=== PATIENT | female | born 1960 | race Caucasian/White ===

== ENCOUNTER → 2016-10-15 | Outpatient (CLI) | payer BC ==
--- NOTE | 2016-10-16 10:16 | ECHOF ---
Referral Reason:Z01.818 Breast ca MEASUREMENTS -------- HEIGHT: 162.6 cm WEIGHT: 113.4 kg BP: RVIDd: 2.6 cm (< 3.3) IVSd: 1.1 cm (0.6 - 1.1) LVIDd: 4.9 cm (3.9 - 5.3) LVPWd: 1.1 cm (0.6 - 1.1) IVSs: 1.2 cm LVIDs: 2.8 cm LVPWs: 1.8 cm LA Diam: 4.9 cm (2.7 - 3.8) LAESV Index (A-L): 37.64 ml/m Ao Diam: 2.7 cm (2.0 - 3.7) AV Cusp: 1.7 cm (1.5 - 2.6) LA Diam: 4.4 cm (2.7 - 3.8) MV EXCURSION: 15.119 mm (> 18.000) MV EF SLOPE: 84 mm/s (70 - 150) EPSS: 0.3 cm MV E Ras: 0.86 m/s MV DecT: 177 ms MV A Ras: 0.83 m/s MV E/A Ratio: 1.04 RAP: 5.00 mmHg RVSP: 50.77 mmHg FINDINGS -------- Sinus rhythm. This was a technically adequate study. LV size, wall thickness and systolic function are normal, with an EF greater than 55%. The right ventricle is normal in size. LA is moderately dilated 34-39 ml/m2 The right atrial size is normal. There is mild aortic valve sclerosis. There is no evidence of aortic regurgitation. Mild mitral annular calcification present. Mild mitral regurgitation is present. Mild tricuspid regurgitation present. There is moderate pulmonary hypertension. The right ventricular systolic pressure, as measured by Doppler, is 50.77mmHg. There is no pulmonic regurgitation present. The aortic root size is normal. There is no pericardial effusion. CONCLUSIONS -------- 1. LV size, wall thickness and systolic function are normal, with an EF greater than 55%. 2. LA is moderately dilated 34-39 ml/m2 3. There is mild aortic valve sclerosis. 4. Mild mitral annular calcification present. 5. Mild mitral regurgitation is present. 6. Mild tricuspid regurgitation present. 7. There is moderate pulmonary hypertension. 8. The right ventricular systolic pressure, as measured by Doppler, is 50.77mmHg. VENEER STACKER: Padmaja Baca RDCS
== END | disposition home or self-care (01) ==
LOC: RADECHMAIN 13:46
PROVIDERS: ATTEND Internal Medicine Hematology & Oncology
DX: Z01.810 Encounter for preprocedural cardiovascular examination (principal); I08.1 Rheumatic disorders of both mitral and tricuspid valves; I27.2 Other secondary pulmonary hypertension; I70.0 Atherosclerosis of aorta
CPT/HCPCS: 93306

== ENCOUNTER → 2017-04-02 | Outpatient (CLI) | payer BC ==
--- NOTE | 2017-04-02 11:14 | XR ---
EXAMINATION TYPE: XR knee complete RT DATE OF EXAM: 04/02/2017 COMPARISON: NONE HISTORY: 56-year-old female right knee pain for one week TECHNIQUE: 3 views FINDINGS: There is mild tricompartmental degenerative spurring, greatest in the patellofemoral compartment. Ext ensor mechanism is intact. No significant knee joint effusion. Subtle subchondral lucency along the m id lateral femoral condyle on the oblique view. Possible intercondylar spur on the AP view. IMPRESSION: 1. Tricompartmental osteoarthrosis. 2. No acute osseous abnormality seen. 3. Tiny subchondral area of lucency along the mid lateral femoral condyle probably corresponds to a d egenerative condylar spur when correlated with the AP view.
== END | disposition home or self-care (01) ==
LOC: RADXRMAIN 10:39
PROVIDERS: ATTEND Physician Assistant
DX: M17.11 Unilateral primary osteoarthritis, right knee (principal)

== ENCOUNTER 2017-05-10 20:22 | Inpatient (IN) | payer BC ==
--- NOTE | 2017-05-10 21:30 | XR ---
EXAMINATION TYPE: XR knee complete RT DATE OF EXAM: 05/10/2017 COMPARISON: 04/02/2017 HISTORY: Knee pain TECHNIQUE: 3 views FINDINGS: There is spurring of the patella. There is a small knee joint effusion. There is spurring o f the femoral and tibial condyles. There is slight irregular cortex on the lateral aspect of the dist al femoral metaphysis. This is suspicious for a subacute fracture. IMPRESSION: I think there is a healing hairline vertical fracture through the intercondylar femur and involving the lateral femoral condyle. This is new compared to last exam. A CT scan or MR scan would be helpful if clinically indicated.
[2017-05-10] MEDS ORDERED: RX INFO: IV CONTRAST WAS GIVEN 1 EACH MISC MISCELLANE PRN (21:44)
--- NOTE | 2017-05-10 22:16 | ED ---
General Adult HPI - General Source: patient, family, EMS, RN notes reviewed Mode of arrival: EMS Limitations: no limitations <Tr Morris - Last Filed: 05/11/17 00:59> <Fco Becerra - Last Filed: 05/11/17 06:28> - General Chief complaint: Extremity Injury, Lower Stated complaint: Knee Pain Time Seen by Provider: 05/10/17 21:38 - History of Present Illness Initial comments: Patient 57-year-old female who presents emergency room today with a chief complaint of increased pain to the right leg. She does admit that over the last few weeks she's been expressing pain to the right leg. Does admit that she 's had some increased swelling. States been doing physical therapy. States after physical therapy today so increased pain and difficult time ambulating on it. She denies any other injury or trauma. Denies any other complaints or symptoms. Patient denies any recent fever, chills, shortness of breath, chest pain, back pain, abdominal pain, nausea or vomiting, numbness or tingling, dysuria or hematuria, constipation or diarrhea, headaches or visual changes, or any other complaints. (Tr Morris) - Related Data Home Medications Medication Instructions Recorded Confirmed Carvedilol Phosphate [Coreg Cr] 10 mg PO QAM 01/16/16 05/10/17 Levothyroxine Sodium [Synthroid] 75 mcg PO QAM 01/16/16 05/10/17 Levothyroxine Sodium [Synthroid] 300 mcg PO QAM 01/16/16 05/10/17 Ergocalciferol (Vitamin D2) 50,000 unit PO CHAVEZ 08/27/16 05/10/17 [Vitamin D2] Thiamine [Vitamin B-1] 100 mg PO DAILY 08/27/16 05/10/17 Ibuprofen [Motrin] 800 mg PO TID PRN 05/10/17 05/10/17 Naproxen Sodium [Aleve] 220 mg PO BID PRN 05/10/17 05/10/17 Allergies Allergy/AdvReac Type Severity Reaction Status Date / Time adhesive Allergy Rash/Hives Verified 05/10/17 23:05 prochlorperazine Allergy Swelling Verified 05/10/17 23:05 [From Compazine] prochlorperazine edisylate Allergy Swelling Verified 05/10/17 23:05 [From Compazine] prochlorperazine maleate Allergy Swelling Verified 05/10/17 23:05 [From Compazine] ranitidine HCl [From Zantac] Allergy Swelling Verified 05/10/17 23:05 Review of Systems ROS Other: All systems not noted in ROS Statement are negative. <Tr Morris - Last Filed: 05/11/17 00:59> ROS Other: All systems not noted in ROS Statement are negative. <Fco Becerra - Last Filed: 05/11/17 06:28> ROS Statement: Those systems with pertinent positive or pertinent negative responses have been documented in the HPI. Past Medical History Past Medical History: COPD, Sleep Apnea/CPAP/BIPAP, Thyroid Disorder Additional Past Medical History / Comment(s): NO CPAP. Hx: POST MENOPAUSAL BLEEDING. Weight loss of 100lb. History of Any Multi-Drug Resistant Organisms: None Reported Past Surgical History: Bariatric Surgery, Breast Surgery, Cholecystectomy, Hernia Repair, Hysterectomy, Tubal Ligation Additional Past Surgical History / Comment(s): Lap band, now removed. Stomach bypass. Left breast bx (NEG). Past Anesthesia/Blood Transfusion Reactions: No Reported Reaction Additional Past Anesthesia/Blood Transfusion Reaction / Comment(s): STATES MOTHER HAD DIFFICULTY WAKING UP. Past Psychological History: No Psychological Hx Reported Smoking Status: Never smoker - Past Family History Father Family Medical History: Cancer <Tr Morris - Last Filed: 05/11/17 00:59> General Exam Limitations: no limitations <Tr Morris - Last Filed: 05/11/17 00:59> <Fco Becerra - Last Filed: 05/11/17 06:28> - General Exam Comments Initial Comments: General: The patient is awake and alert, in no distress, and does not appear acutely ill. Neck: The neck is supple, there is no tenderness or JVD. Cardiovascular: There is a regular rate and rhythm. No murmur, rub or gallop is appreciated. Respiratory: Lungs are clear to auscultation, respirations are non-labored, breath sounds are equal. No wheezes, stridor, rales, or rhonchi. Musculoskeletal: Patient does have moderate swelling to the right lower extremity. No redness. No deformity. Sensation intact pulses equal bilaterally 2+. Patient does have positive Homans sign. Neurological: A&O x 3. CN II-XII intact, There are no obvious motor or sensory deficits. Coordination appears grossly intact. Speech is normal. Skin: Skin is warm and dry and no rashes or lesions are noted. Psychiatric: Normal mood and affect. (Tr Morris) Medical Decision Making - Lab Data Result diagrams: 05/11/17 00:07 05/11/17 00:07 <Tr Morris - Last Filed: 05/11/17 00:59> - Lab Data Result diagrams: 05/11/17 00:07 05/11/17 00:07 <Fco Becerra - Last Filed: 05/11/17 06:28> - Medical Decision Making Patient reexamined at this time. Resting comfortably. Patient's labs been reviewed here evidence for urinary tract infection. She does admit to some increased frequency will be started on antibiotics. Patient does have a pathological fracture to the right knee. Patient will be admitted with consult to orthopedics along with her oncologist. (Tr Morris) 57-year-old female presents with worsening right knee pain. Patient does have history of breast cancer, recently completed treatment proximally 3 months ago. X-ray does show findings intracondylar fracture,CT is obtained. CT shows suspicion for pathological fracture and lytic bone lesion. Patient is unable to bear weight on this leg secondary to pain. She will be admitted to internal medicine with oncology and orthopedics on consult. (Fco Becerra) - Lab Data Lab Results 05/11/17 05/11/17 05/11/17 Range/Units 00:04 00:07 00:07 WBC 10.3 (3.8-10.6) k/uL RBC 4.32 (3.80-5.40) m/uL Hgb 13.2 (11.4-16.0) gm/dL Hct 41.6 (34.0-46.0) % MCV 96.2 (80.0-100.0) fL MCH 30.5 (25.0-35.0) pg MCHC 31.7 (31.0-37.0) g/dL RDW 15.0 (11.5-15.5) % Plt Count 243 (150-450) k/uL Neutrophils % 84 % Lymphocytes % 10 % Monocytes % 4 % Eosinophils % 1 % Basophils % 0 % Neutrophils # 8.7 H (1.3-7.7) k/uL Lymphocytes # 1.0 (1.0-4.8) k/uL Monocytes # 0.4 (0-1.0) k/uL Eosinophils # 0.1 (0-0.7) k/uL Basophils # 0.0 (0-0.2) k/uL Poikilocytosis Slight PT (9.0-12.0) sec INR (<1.2) APTT (22.0-30.0) sec Sodium 145 (137-145) mmol/L Potassium 4.0 (3.5-5.1) mmol/L Chloride 107 (98-107) mmol/L Carbon Dioxide 26 (22-30) mmol/L Anion Gap 12 mmol/L BUN 18 H (7-17) mg/dL Creatinine 0.60 (0.52-1.04) mg/dL Est GFR (MDRD) Af Amer >60 (>60 ml/min/1.73 sqM) Est GFR (MDRD) Non-Af >60 (>60 ml/min/1.73 sqM) Glucose 118 H (74-99) mg/dL Calcium 9.3 (8.4-10.2) mg/dL Total Bilirubin 0.8 (0.2-1.3) mg/dL AST 28 (14-36) U/L ALT 34 (9-52) U/L Alkaline Phosphatase 313 H (38-126) U/L Total Protein 6.6 (6.3-8.2) g/dL Albumin 3.9 (3.5-5.0) g/dL Urine Color Yellow Urine Appearance Cloudy H (Clear) Urine pH 6.0 (5.0-8.0) Ur Specific [place] 1.025 (1.001-1.035) Urine Protein Trace H (Negative) Urine Glucose (UA) Negative (Negative) Urine Ketones 1+ H (Negative) Urine Blood Negative (Negative) Urine Nitrite Positive H (Negative) Urine Bilirubin Negative (Negative) Urine Urobilinogen <2.0 (<2.0) mg/dL Ur Leukocyte Esterase Small H (Negative) Urine RBC 1 (0-5) /hpf Urine WBC 7 H (0-5) /hpf Ur Squamous Epith Cells 2 (0-4) /hpf Urine Bacteria Many H (None) /hpf Hyaline Casts 1 (0-2) /lpf Urine Mucus Occasional H (None) /hpf 05/11/17 Range/Units 00:07 WBC (3.8-10.6) k/uL RBC (3.80-5.40) m/uL Hgb (11.4-16.0) gm/dL Hct (34.0-46.0) % MCV (80.0-100.0) fL MCH (25.0-35.0) pg MCHC (31.0-37.0) g/dL RDW (11.5-15.5) % Plt Count (150-450) k/uL Neutrophils % % Lymphocytes % % Monocytes % % Eosinophils % % Basophils % % Neutrophils # (1.3-7.7) k/uL Lymphocytes # (1.0-4.8) k/uL Monocytes # (0-1.0) k/uL Eosinophils # (0-0.7) k/uL Basophils # (0-0.2) k/uL Poikilocytosis PT 10.8 (9.0-12.0) sec INR 1.1 (<1.2) APTT 21.8 L (22.0-30.0) sec Sodium (137-145) mmol/L Potassium (3.5-5.1) mmol/L Chloride (98-107) mmol/L Carbon Dioxide (22-30) mmol/L Anion Gap mmol/L BUN (7-17) mg/dL Creatinine (0.52-1.04) mg/dL Est GFR (MDRD) Af Amer (>60 ml/min/1.73 sqM) Est GFR (MDRD) Non-Af (>60 ml/min/1.73 sqM) Glucose (74-99) mg/dL Calcium (8.4-10.2) mg/dL Total Bilirubin (0.2-1.3) mg/dL AST (14-36) U/L ALT (9-52) U/L Alkaline Phosphatase (38-126) U/L Total Protein (6.3-8.2) g/dL Albumin (3.5-5.0) g/dL Urine Color Urine Appearance (Clear) Urine pH (5.0-8.0) Ur Specific [place] (1.001-1.035) Urine Protein (Negative) Urine Glucose (UA) (Negative) Urine Ketones (Negative) Urine Blood (Negative) Urine Nitrite (Negative) Urine Bilirubin (Negative) Urine Urobilinogen (<2.0) mg/dL Ur Leukocyte Esterase (Negative) Urine RBC (0-5) /hpf Urine WBC (0-5) /hpf Ur Squamous Epith Cells (0-4) /hpf Urine Bacteria (None) /hpf Hyaline Casts (0-2) /lpf Urine Mucus (None) /hpf Disposition Time of Disposition: 01:00 <Tr Morris - Last Filed: 05/11/17 00:59> <Fco Becerra - Last Filed: 05/11/17 06:28> Clinical Impression: Knee fracture, right, UTI (urinary tract infection) Disposition: ADMITTED IP TO THIS HOSP Condition: Good
--- NOTE | 2017-05-10 22:47 | CT ---
EXAM: CT Right Lower Extremity Without Intravenous Contrast, Knee CLINICAL HISTORY: Reason: Pain TECHNIQUE: Axial computed tomography images of the right knee without intravenous contrast. CTDI is 20 mGy and DLP is 544.20 mGy-cm. This CT exam was performed using one or more of the following dose reduction techniques: automated exposure control, adjustment of the mA and/or kV according to patient size, and/or use of iterative reconstruction technique. COMPARISON: Right knee radiographs 05/10/2017 FINDINGS: Bones/joints: Lytic lesion involving the metaphysis and physis of the lateral femoral condyle is mildly expansile with associated cortical destruction and pathologic fracture laterally. This lesion has an imprecise zone of transition and ill-defined borders, measuring approximately 3.7 cm. A definite solid component is not visualized, however evaluation is limited by lack of intravenous contrast. Mild tricompartmental degenerative changes of the knee. Soft tissues: Small popliteal cyst. IMPRESSION: Lytic lesion in the lateral femoral condyle with associated cortical destruction/pathologic fracture is concerning for a metastasis. A primary bone neoplasm or pseudotumor is felt to be less likely. Correlate with known malignancy. A nuclear medicine PET scan may be considered for further evaluation, as clinically indicated.
--- NOTE | 2017-05-10 23:12 | US ---
EXAM: US Duplex Right Lower Extremity Veins CLINICAL HISTORY: Right leg pain TECHNIQUE: The lower extremity deep venous system is examined utilizing real time linear array sonography with graded compression, doppler sonography and color-flow sonography. COMPARISON: No relevant prior studies available. FINDINGS: Deep veins: Unremarkable. Normal compression and response to augmentation. Superficial veins: Unremarkable as visualized. Soft tissues: No acute findings. IMPRESSION: No evidence of deep venous thrombosis in the right lower extremity.
[2017-05-10] MEDS ORDERED: HYDROmorphone 1 MG/ML 1 ML SYRINGE IVP STA (23:39)
[2017-05-10] MEDS ORDERED: ONDANSETRON 4 MG/2 ML VIAL IVP STA (23:39)
[2017-05-11 00:20] LABS: Basophils % (A) 0 %; CH 31.7; CHCM 33.1; Eosinophils # (A) 0.1 k/uL (0-0.7); Eosinophils % (A) 1 %; HCT 41.6 % (34.0-46.0); HGB 13.2 gm/dL (11.4-16.0); Luc # (Auto) 0.09; Luc % (Auto) 1; Lymphocytes % (A) 10 %; MCH 30.5 pg (25.0-35.0); MCHC 31.7 g/dL (31.0-37.0); MCV 96.2 fL (80.0-100.0); Monocytes # (A) 0.4 k/uL (0-1.0); Monocytes % (A) 4 %; Neutrophils # (A) 8.7 k/uL (1.3-7.7); Neutrophils % (A) 84 %; Poikilocytosis Slight; RBC 4.32 m/uL (3.80-5.40); WBC 10.3 k/uL (3.8-10.6); WBC (Perox) 10.24
[2017-05-11 00:31] LABS: ALT 34 U/L (9-52); AST 28 U/L (14-36); Alkaline Phosphatase 313 U/L (38-126); Anion Gap 12 mmol/L; Blood Urea Nitrogen 18 mg/dL (7-17); Calcium 9.3 mg/dL (8.4-10.2); Carbon Dioxide 26 mmol/L (22-30); Chloride 107 mmol/L (98-107); Glucose 118 mg/dL (74-99); Non-African American GFR(MDRD) >60 (>60 ml/min/1.73 sqM); Sodium 145 mmol/L (137-145); Total Bilirubin 0.8 mg/dL (0.2-1.3); Total Protein 6.6 g/dL (6.3-8.2)
[2017-05-11 00:32] LABS: Appearance,Urine Cloudy (Clear); Bacteria,Urine Many /hpf; Bilirubin,Urine Negative (Negative); Glucose,Urine (UA) Negative (Negative); Ketones,Urine 1+ (Negative); Leukocyte Esterase,Urine Small (Negative); Mucus,Urine Occasional /hpf; Nitrite,Urine Positive (Negative); Particle Count 11065; Protein,Urine Trace (Negative); RBC,Urine 1 /hpf (0-5); Specific Gravity,Urine 1.025 (1.001-1.035); Squamous Epithelial Cell,Urine 2 /hpf (0-4); UA Billing (MACRO vs. MICRO) MICRO; Urobilinogen,Urine <2.0 mg/dL (<2.0); WBC,Urine 7 /hpf (0-5)
[2017-05-11 00:37] LABS: INR 1.1 (<1.2); Prothrombin Time 10.8 sec (9.0-12.0)
[2017-05-11 00:48] LABS: Partial Thromboplastin Time 21.8 sec (22.0-30.0)
[2017-05-11] MEDS ORDERED: NALOXONE 0.4 MG/ML 1 ML VIAL IV PRN (01:01)
[2017-05-11] MEDS ORDERED: LORazepam 2 MG/ML SYRINGE IV PRN (01:01)
[2017-05-11 02:33] VITALS: BMI 42.9
[2017-05-11] MEDS: HYDROmorphone 1 MG/ML 1 ML SYRINGE IV PRN ×4 (06:09→19:37)
[2017-05-11] MEDS: SODIUM CHLORIDE 0.9% 1,000 ML IV SCH ×2 (06:42→17:15)
[2017-05-11] MEDS: DIAZEPAM 5 MG TAB PO PRN ×2 (09:31→14:58)
[2017-05-11] MEDS ORDERED: HYDROcodone/APAP 7.5-325MG 1 EACH TAB PO PRN (09:52)
--- NOTE | 2017-05-11 10:26 | P.CNOR ---
History of Present Illness - [facility] Consult date: 05/11/17 Requesting physician: Eros Sosa Consult reason: fracture History of present illness: Patient is a pleasant 57-year-old female seen at bedside this morning. We are consulted for right knee pain. She states she's had right knee pain for the past 2 months or so. Should been participating in physical therapy which has not helped a great deal. Pain worsened yesterday where she had difficulty putting any weight or ambulating. She's had intermittent numbness and tingling in the leg. She is currently denying calf pain, fever, chills, chest pain or shortness of breath. She has a history of breast cancer and finished treatment approximately 3 months ago. She had a mastectomy in May 2016 she states. She has no other complaints today. Review of Systems All systems: negative Constitutional: Denies chills, Denies fever Eyes: denies blurred vision, denies pain Ears, nose, mouth and throat: Denies headache, Denies sore throat Cardiovascular: Denies chest pain, Denies shortness of breath Respiratory: Denies cough Gastrointestinal: Denies abdominal pain, Denies diarrhea, Denies nausea, Denies vomiting Genitourinary: Denies dysuria, Denies hematuria Musculoskeletal: Denies myalgias Integumentary: Denies pruritus, Denies rash Neurological: Denies numbness, Denies weakness Psychiatric: Denies anxiety, Denies depression Endocrine: Denies fatigue, Denies weight change Past Medical History Past Medical History: COPD, Sleep Apnea/CPAP/BIPAP, Thyroid Disorder Additional Past Medical History / Comment(s): NO CPAP. Hx: POST MENOPAUSAL BLEEDING. Weight loss of 100lb. History of Any Multi-Drug Resistant Organisms: None Reported Past Surgical History: Bariatric Surgery, Breast Surgery, Cholecystectomy, Hernia Repair, Hysterectomy, Tubal Ligation Additional Past Surgical History / Comment(s): Lap band, now removed. Stomach bypass. Left breast bx (NEG). Past Anesthesia/Blood Transfusion Reactions: No Reported Reaction Additional Past Anesthesia/Blood Transfusion Reaction / Comm: STATES MOTHER HAD DIFFICULTY WAKING UP. Past Psychological History: No Psychological Hx Reported Smoking Status: Never smoker Past Alcohol Use History: None Reported Past Drug Use History: None Reported - Past Family History Father Family Medical History: Cancer Additional Family Medical History / Comment(s): colon and esophagus cancer Medications and Allergies Home Medications Medication Instructions Recorded Confirmed Type Carvedilol Phosphate [Coreg Cr] 10 mg PO QAM 01/16/16 05/10/17 History Levothyroxine Sodium [Synthroid] 75 mcg PO QAM 01/16/16 05/10/17 History Levothyroxine Sodium [Synthroid] 300 mcg PO QAM 01/16/16 05/10/17 History Ergocalciferol (Vitamin D2) 50,000 unit PO CHAVEZ 08/27/16 05/10/17 History [Vitamin D2] Thiamine [Vitamin B-1] 100 mg PO DAILY 08/27/16 05/10/17 History Ibuprofen [Motrin] 800 mg PO TID PRN 05/10/17 05/10/17 History Naproxen Sodium [Aleve] 220 mg PO BID PRN 05/10/17 05/10/17 History Allergies Allergy/AdvReac Type Severity Reaction Status Date / Time adhesive Allergy Rash/Hives Verified 05/10/17 23:05 prochlorperazine Allergy Swelling Verified 05/10/17 23:05 [From Compazine] prochlorperazine edisylate Allergy Swelling Verified 05/10/17 23:05 [From Compazine] prochlorperazine maleate Allergy Swelling Verified 05/10/17 23:05 [From Compazine] ranitidine HCl [From Zantac] Allergy Swelling Verified 05/10/17 23:05 Physical Examination Inspection of the right lower extremity is benign. There is no active wounds, lacerations, erythema, ecchymoses or edema. There is mild tenderness palpation at the distal femur anteriorly. The knee is not put through range of motion as it causes significant pain as well as findings with her CAT scan show a lytic lesion at the distal femoral condyle as well as an intercondylar tibial plateau fracture. The calf is soft and nontender. 2+ dorsalis pedis pulse and less than 2 second cap refill is present. Motor and sensation is grossly intact throughout the right lower extremity.. Results CT of the right knee shows a Lytic appearing lesion that the lateral femoral condyle and associated fracture. There appears to be a vertical tibial plateau fracture that is nondisplaced at the intercondylar eminence. - Labs Labs: Abnormal Lab Results - Last 24 Hours (Table) 05/11/17 05/11/17 05/11/17 Range/Units 00:04 00:07 00:07 Neutrophils # 8.7 H (1.3-7.7) k/uL APTT (22.0-30.0) sec BUN 18 H (7-17) mg/dL Glucose 118 H (74-99) mg/dL Alkaline Phosphatase 313 H (38-126) U/L Urine Appearance Cloudy H (Clear) Urine Protein Trace H (Negative) Urine Ketones 1+ H (Negative) Urine Nitrite Positive H (Negative) Ur Leukocyte Esterase Small H (Negative) Urine WBC 7 H (0-5) /hpf Urine Bacteria Many H (None) /hpf Urine Mucus Occasional H (None) /hpf 05/11/17 Range/Units 00:07 Neutrophils # (1.3-7.7) k/uL APTT 21.8 L (22.0-30.0) sec BUN (7-17) mg/dL Glucose (74-99) mg/dL Alkaline Phosphatase (38-126) U/L Urine Appearance (Clear) Urine Protein (Negative) Urine Ketones (Negative) Urine Nitrite (Negative) Ur Leukocyte Esterase (Negative) Urine WBC (0-5) /hpf Urine Bacteria (None) /hpf Urine Mucus (None) /hpf H & H 05/11/17 Range/Units 00:07 Hgb 13.2 (11.4-16.0) gm/dL Hct 41.6 (34.0-46.0) % Coagulation 05/11/17 Range/Units 00:07 INR 1.1 (<1.2) Result Diagrams: 05/11/17 00:07 05/11/17 00:07 Assessment and Plan (1) Knee fracture, right Narrative/Plan: This patient has been reviewed with Dr. Sosa. We've recommended obtaining a knee immobilizer for the right knee. She is to be strict nonweightbearing of the right lower extremity. Continue with pain management. A repeat PET scan may be appropriate for further evaluation of metastasis. We'll continue to follow and make further recommendations as appropriate. Status: Acute Time with Patient: Less than 30
[2017-05-11] MEDS ORDERED: RX INFO: IV CONTRAST WAS GIVEN 1 EACH MISC MISCELLANE PRN (10:38)
[2017-05-11] MEDS: IOHEXOL 350 MG/ML 25 ML BOTTLE (ORAL USE) PO PRN ×2 (11:37→12:45)
[2017-05-11] MEDS ORDERED: HYDROcodone/APAP 10-325MG 1 EACH TAB PO ONE (14:38)
[2017-05-11] MEDS ORDERED: HYDROmorphone 1 MG/ML 1 ML SYRINGE IVP STA (14:38)
--- NOTE | 2017-05-11 16:47 | CT ---
EXAMINATION TYPE: CT ChestAbdPelvis w con DATE OF EXAM: 05/11/2017 COMPARISON: Bone scan 05/11/2017, nuclear medicine PET/CT 08/22/2016, CT 11/11/2012 HISTORY: Breast cancer, new bone lesions, restaging CT DLP: 3162.5 mGycm Automated exposure control for dose reduction was used. CONTRAST: CT scan of the chest, abdomen and pelvis is performed and with IV Contrast, patient injected with 100 mL of Omnipaque 300. FINDINGS: LUNGS: The lungs are grossly clear, there is no concerning parenchymal mass or nodule identified. T here is no pleural effusion or pneumothorax seen. The tracheobronchial tree is patent. Dependent ate lectatic changes are present within the lungs. MEDIASTINUM: There are no greater than 1 cm hilar or mediastinal lymph nodes. No pericardial effusi on is seen. AORTA: No significant abnormality is seen. OTHER: No additional significant abnormality is seen. LIVER/GB: The liver is enlarged and shows low attenuation likely due to fatty infiltration. Patient i s post cholecystectomy. PANCREAS: No significant abnormality is seen. SPLEEN: The spleen is enlarged ADRENALS: No significant abnormality is seen. KIDNEYS: No significant abnormality is seen. Retroaortic left renal vein is present. REPRODUCTIVE ORGANS: No gross abnormality seen. BOWEL: The cecum shows some wall thickening which is indeterminate.. Postop change noted to the juana roesophageal junction, lap band has been removed in the interval compared to prior CT. Some retained oral contrast present within the esophagus. FREE AIR: No Free Air visible. ASCITES: None seen. RETROPERITONEAL ADENOPATHY: No retroperitoneal adenopathy is seen. LYMPH NODES: No greater than 1 cm abdominal or pelvic lymph nodes are appreciated. URINARY BLADDER: No significant abnormality is seen. PELVIC ADENOPATHY: None visualized. OSSEOUS STRUCTURES: No significant abnormality is seen. Surgical clips present in the subcutaneous fat anteriorly. Small umbilical hernia contains fat. There is a port in the right pectoral region, catheter courses into the superior vena cava towards the cav oatrial junction level. Patient is post right mastectomy. IMPRESSION: Hepatosplenomegaly. Postop changes. Findings in the cecum are nonspecific and are likely normal, difficult to exclude a mucosal lesion. Additional nonspecific findings described above.
--- NOTE | 2017-05-11 17:00 | NM ---
EXAMINATION TYPE: NM bone scan whole body DATE OF EXAM: 05/11/2017 COMPARISON: NONE HISTORY: Breast cancer, pulmonary Delayed whole-body scanning was performed following the injection of 27.7 mCi Tc 99m MDP. Images wer e acquired 3.5 hours post injection. FINDINGS: Whole body imaging is performed. There is focal uptake within the distal right femur. This is compared 05/10/2017. The lesion in the la teral left knee appears to correspond to the findings: Scant. Additional suspicious metastatic lesions are not identified. There is some mild increased uptake felt to more likely represent degenerative changes. IMPRESSION: 1. Metastatic lesion to the distal right knee. 2. Additional areas of uptake within the ankles are more likely related to degenerative changes.
--- NOTE | 2017-05-11 17:20 | P.CONS ---
History of Present Illness - Reason for Consult Consult date: 05/11/17 pathological fracture Requesting physician: Tr Morris - Chief Complaint right knee pain - History of Present Illness Mrs. Watkins is a very pleasant female pt of Dr. Fiore who noticed a lump in the central portion of her right breast in late May 2016, she had not had a mammogram since 11/02. She had mammogram in Jun that revealed 3.2 x 2.4 cm oval mass in the retroareolar region, US confirmed 2.8 x 1.9 x 2.4 cm solid lesion at 10 o'clock, US guided core biopsy on 07/03/16 revealing a fibroepithelial lesion with no obvious malignant characteristics but because the mass was palpable, wire localization excision was done on 07/28/16. 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 Pt had simple mastectomy, with sentinal lymph node biopsy and then axillary dissection on 09/02/16, no residual tumor was found in the breast, 1/2 sentinal nodes was positive for micromets, 6 axillary nodes were negative. Pt was seen at [facility] for treatment opinion on 10/27/16. Adjuvant taxotere and cytoxan was recommended. She completed 4 cycles chemo in 02/03. She was thne placed on observation and had her 1st 3mo f/u earlier this month, mammogram due in the next few weeks. Pt has been having pain in the right knee for a little over a month, associated with some cramps that can be severe enough that she will "scream" in pain, she denies numbness, tingling or falls. Pt was participating in PT when her knee starting hurting worse, the pain was persistent and not alleviated by analgesics or positioning so she came to the hospital. She had Xray of the knee and CT which is showing a 3.7 cm lytic lesion on the right lateral femoral condyle. Review of Systems All systems: negative Constitutional: Reports as per HPI Eyes: bilateral as per HPI Past Medical History Past Medical History: Cancer, Chest Pain / Angina, COPD, Sleep Apnea/CPAP/BIPAP , Thyroid Disorder Additional Past Medical History / Comment(s): NO CPAP. Hx: POST MENOPAUSAL BLEEDING. Weight loss of 100lb. History of Any Multi-Drug Resistant Organisms: None Reported Past Surgical History: Bariatric Surgery, Breast Surgery, Cholecystectomy, Hernia Repair, Hysterectomy, Tubal Ligation Additional Past Surgical History / Comment(s): Lap band, now removed. Stomach bypass. Left breast bx (NEG). Past Anesthesia/Blood Transfusion Reactions: No Reported Reaction Additional Past Anesthesia/Blood Transfusion Reaction / Comm: STATES MOTHER HAD DIFFICULTY WAKING UP. Past Psychological History: No Psychological Hx Reported Smoking Status: Never smoker Past Alcohol Use History: None Reported Past Drug Use History: None Reported - Past Family History Father Family Medical History: Cancer Additional Family Medical History / Comment(s): colon and esophagus cancer Medications and Allergies Home Medications Medication Instructions Recorded Confirmed Type Carvedilol Phosphate [Coreg Cr] 10 mg PO QAM 01/16/16 05/10/17 History Levothyroxine Sodium [Synthroid] 75 mcg PO QAM 01/16/16 05/10/17 History Levothyroxine Sodium [Synthroid] 300 mcg PO QAM 01/16/16 05/10/17 History Ergocalciferol (Vitamin D2) 50,000 unit PO CHAVEZ 08/27/16 05/10/17 History [Vitamin D2] Thiamine [Vitamin B-1] 100 mg PO DAILY 08/27/16 05/10/17 History Ibuprofen [Motrin] 800 mg PO TID PRN 05/10/17 05/10/17 History Naproxen Sodium [Aleve] 220 mg PO BID PRN 05/10/17 05/10/17 History Allergies Allergy/AdvReac Type Severity Reaction Status Date / Time adhesive Allergy Rash/Hives Verified 05/10/17 23:05 prochlorperazine Allergy Swelling Verified 05/10/17 23:05 [From Compazine] prochlorperazine edisylate Allergy Swelling Verified 05/10/17 23:05 [From Compazine] prochlorperazine maleate Allergy Swelling Verified 05/10/17 23:05 [From Compazine] ranitidine HCl [From Zantac] Allergy Swelling Verified 05/10/17 23:05 Physical Exam Vitals: Vital Signs Temp Pulse Pulse Pulse Resp BP BP 05/11/17 15:00 98.5 F 74 17 181/81 05/11/17 07:00 100.2 F H 88 18 166/70 05/11/17 04:00 16 05/11/17 02:06 98.2 F 74 16 159/75 05/11/17 02:00 16 05/11/17 01:28 100.5 F H 89 18 185/88 05/11/17 00:46 177/77 05/11/17 00:13 73 18 05/10/17 23:07 72 18 182/69 05/10/17 20:30 98.8 F 75 18 224/90 Pulse Ox 05/11/17 15:00 94 L 05/11/17 07:00 93 L 05/11/17 04:00 05/11/17 02:06 94 L 05/11/17 02:00 05/11/17 01:28 94 L 05/11/17 00:46 05/11/17 00:13 94 L 05/10/17 23:07 97 05/10/17 20:30 96 Intake and Output 05/11/17 05/11/17 05/11/17 06:59 14:59 22:59 Intake Total 375 Output Total 200 Balance 375 -200 Intake: IV 375 Sodium Chloride 0.9% 1, 375 000 ml @ 125 mls/hr IV . Q8H [facility] Rx#:[id number] Output: Urine 200 Other: Weight 113.398 kg - Constitutional General appearance: cooperative, no acute distress, obese - EENT Eyes: anicteric sclerae, PERRLA, normal appearance ENT: normal oropharynx - Neck Neck: no lymphadenopathy - Respiratory Respiratory: bilateral: CTA - Cardiovascular Rhythm: regular Heart sounds: normal: S1, S2 Abnormal Heart Sounds: no systolic murmur, no diastolic murmur, no rub, no S3 Gallop, no S4 Gallop, no click, no other leg Peripheral Edema: right: Trace, left: None - Gastrointestinal General gastrointestinal: no absent bowel sounds, no decreased bowel sounds, no distended, no hepatomegaly, no hyperactive bowel sounds, normal bowel sounds, no organomegaly, no rigid, no scaphoid, soft, no splenomegaly, no tenderness, no umbilical hernia, no ventral hernia - Integumentary Integumentary: normal - Neurologic Neurologic: CNII-XII intact - Musculoskeletal right leg flexion and extension are a little painful, pedal pulses 2+, skin warm , pt can discriminate soft touch equally well bilaterally - Psychiatric Psychiatric: A&O x's 3, appropriate affect, intact judgment & insight Results CBC & Chem 7: 05/11/17 00:07 05/11/17 00:07 Labs: Abnormal Lab Results - Last 24 Hours (Table) 05/11/17 05/11/17 05/11/17 Range/Units 00:04 00:07 00:07 Neutrophils # 8.7 H (1.3-7.7) k/uL APTT (22.0-30.0) sec BUN 18 H (7-17) mg/dL Glucose 118 H (74-99) mg/dL Alkaline Phosphatase 313 H (38-126) U/L Urine Appearance Cloudy H (Clear) Urine Protein Trace H (Negative) Urine Ketones 1+ H (Negative) Urine Nitrite Positive H (Negative) Ur Leukocyte Esterase Small H (Negative) Urine WBC 7 H (0-5) /hpf Urine Bacteria Many H (None) /hpf Urine Mucus Occasional H (None) /hpf 05/11/17 Range/Units 00:07 Neutrophils # (1.3-7.7) k/uL APTT 21.8 L (22.0-30.0) sec BUN (7-17) mg/dL Glucose (74-99) mg/dL Alkaline Phosphatase (38-126) U/L Urine Appearance (Clear) Urine Protein (Negative) Urine Ketones (Negative) Urine Nitrite (Negative) Ur Leukocyte Esterase (Negative) Urine WBC (0-5) /hpf Urine Bacteria (None) /hpf Urine Mucus (None) /hpf Microbiology - Last 24 Hours (Table) 05/11/17 00:04 Urine Culture - Preliminary Urine,Voided Comments: CT report of the knee reviewed Venous US: report reviewed Assessment and Plan (1) Breast cancer, right breast Status: Chronic (2) Lytic bone lesion of right femur Status: Acute Plan: Case was discussed with OA PA, plan is for immobilization and non-weight bearing status. CT CAP, NM bone scan and tumor markers have been ordered. Based on imaging consult will be placed for biopsy based on most amenable area to target. Agree with pain management . Will follow up in AM.
[2017-05-11] MEDS: CARVEDILOL 3.125 MG TAB PO SCH (17:27)
[2017-05-11] MEDS: ONDANSETRON 4 MG/2 ML VIAL IVP PRN (18:40)
[2017-05-12] MEDS: LISINOPRIL 10 MG TAB PO SCH ×2 (01:38→07:08)
[2017-05-12] MEDS: SODIUM CHLORIDE 0.9% 1,000 ML IV SCH ×3 (01:42→17:28)
[2017-05-12] MEDS ORDERED: LEVOTHYROXINE 75 MCG TAB PO SCH (06:30)
[2017-05-12] MEDS ORDERED: LEVOTHYROXINE 100 MCG TAB PO SCH (06:30)
[2017-05-12] MEDS: HYDROmorphone 1 MG/ML 1 ML SYRINGE IV PRN (07:00)
[2017-05-12 07:06] VITALS: RESP 16
[2017-05-12] MEDS: CARVEDILOL 3.125 MG TAB PO SCH ×2 (07:07→17:29)
[2017-05-12] MEDS: ONDANSETRON 4 MG/2 ML VIAL IVP PRN (07:10)
[2017-05-12 07:56] LABS: ALT 30 U/L (9-52); AST 24 U/L (14-36); Alkaline Phosphatase 287 U/L (38-126); Anion Gap 8 mmol/L; Blood Urea Nitrogen 11 mg/dL (7-17); Calcium 8.8 mg/dL (8.4-10.2); Carbon Dioxide 25 mmol/L (22-30); Chloride 106 mmol/L (98-107); Glucose 129 mg/dL (74-99); Non-African American GFR(MDRD) >60 (>60 ml/min/1.73 sqM); Potassium 3.8 mmol/L (3.5-5.1); Sodium 139 mmol/L (137-145); Total Bilirubin 0.7 mg/dL (0.2-1.3); Total Protein 5.7 g/dL (6.3-8.2)
[2017-05-12 08:34] LABS: Basophils % (A) 0 %; CH 30.9; CHCM 33.4; Eosinophils % (A) 0 %; HCT 38.8 % (34.0-46.0); HDW 3.69; Luc # (Auto) 0.09; Luc % (Auto) 1; Lymphocytes # (A) 0.9 k/uL (1.0-4.8); Lymphocytes % (A) 10 %; MCHC 33.4 g/dL (31.0-37.0); MCV 92.8 fL (80.0-100.0); Mean Platelet Volume 8.2; Monocytes # (A) 0.5 k/uL (0-1.0); Monocytes % (A) 6 %; Neutrophils # (A) 6.9 k/uL (1.3-7.7); Neutrophils % (A) 82 %; Poikilocytosis Slight; RBC 4.19 m/uL (3.80-5.40); RDW 14.1 % (11.5-15.5); WBC 8.4 k/uL (3.8-10.6); WBC (Perox) 9.45
[2017-05-12] MEDS ORDERED: THIAMINE 100 MG TAB PO SCH (09:00)
[2017-05-12] MEDS ORDERED: HYDROcodone/APAP 10-325MG 1 EACH TAB PO PRN (09:02)
--- NOTE | 2017-05-12 09:27 | P.PN ---
Subjective Principal diagnosis: Right distal femur lesion, pathological fracture Patient is a pleasant 57-year-old female seen at bedside this morning. We're following for a right distal femur pathological fracture. She's had a computed tomography scan a nuclear medicine scan done. She has in the immobilizer in place. Her pain appears be controlled this morning. She has no new complaints. She denies calf pain, new numbness, tingling or other. She has no fever, chills, chest pain or shortness of breath. Objective - Vital Signs Vital signs: Vital Signs Temp 99.1 F 05/12/17 07:06 Pulse 71 05/12/17 07:06 Resp 16 05/12/17 07:06 BP 153/68 05/12/17 08:04 Pulse Ox 95 05/12/17 07:06 Intake & Output 05/11/17 05/12/17 05/12/17 18:59 06:59 18:59 Intake Total 1935 Output Total 200 1250 Balance -200 685 Intake: Intake, IV Titration 1185 Amount Sodium Chloride 0.9% 1, 1185 000 ml @ 125 mls/hr IV . Q8H [facility] Rx#:[id number] Oral 750 Output: Urine 200 1250 Other: Voiding Method Bedpan # Voids 3 1 - Exam Inspection of the right lower extremity is benign and unchanged. There is no wounds or bleeding. Range of motion of the knee is not tested due to the fracture. Calf is soft and nontender. Sensation to light touch is intact at the right lower extremity. Motor is intact at the ankle, foot and toes. 2+ dorsalis pedis pulse present and less than 2 second cap refill present. - Constitutional General appearance: Present: no acute distress - Psychiatric Psychiatric: Present: A&O x's 3, appropriate affect, intact judgment & insight - Labs CBC & Chem 7: 05/12/17 06:47 05/12/17 06:47 Labs: Abnormal Lab Results - Last 24 Hours (Table) 05/12/17 Range/Units 06:47 Creatinine 0.50 L (0.52-1.04) mg/dL Glucose 129 H (74-99) mg/dL Alkaline Phosphatase 287 H (38-126) U/L Total Protein 5.7 L (6.3-8.2) g/dL Albumin 3.3 L (3.5-5.0) g/dL Microbiology - Last 24 Hours (Table) 05/11/17 00:04 Urine Culture - Preliminary Urine,Voided Assessment and Plan (1) Knee fracture, right Narrative/Plan: She will continue with knee immobilizer for the right knee. She is to be strict nonweightbearing of the right lower extremity. Continue with pain management. It appears based on her computed tomography scan and nuclear medicine scan there is only the lesion at the right distal femur. We'll discuss with Dr. Sosa for further recommendations as appropriate. Status: Acute Time with Patient: Less than 30
[2017-05-12 10:46] LABS: Manual Review Performed
[2017-05-12] MEDS: DIAZEPAM 5 MG TAB PO PRN ×2 (12:10→18:54)
[2017-05-12] MEDS: HYDROcodone/APAP 10-325MG 1 EACH TAB PO PRN ×2 (14:44→19:59)
[2017-05-12 14:48] VITALS: TEMP 97.1
[2017-05-12 17:30] VITALS: BP 163/53; PULSE 80
--- NOTE | 2017-05-12 18:52 | HP ---
DATE OF ADMISSION: 05/11/2017 PRESENTING COMPLAINT: Right knee pain. HISTORY OF PRESENTING COMPLAINT: This is a very pleasant 57-year-old patient of Dr. Ramirez with known history of COPD, hypothyroid; also obstructive sleep apnea, but has not used any machine for a long time. Patient has been having pain in the right knee, was sent to physical therapy, and every time she had physical therapy the pain increased. Yesterday again the patient went for physical therapy and had increasing pain; came home, could barely get out of the car and actually nearly fell down. Patient was brought into the ER. A lytic lesion was found in the distal end of the knee, the differential being that this is metastatic disease. Patient has a history of breast cancer; just had a recent followup with Dr. Fiore and was due for a mammogram. Patient's appetite is otherwise good. There is no weight loss. She is admitted for further metastatic workup. Her is at the bedside. REVIEW OF SYSTEMS: CONSTITUTIONAL: Tired. HEENT: None. RESPIRATORY: As above. CARDIOVASCULAR: None. GASTROINTESTINAL: None. GENITOURINARY: None. MUSCULOSKELETAL: As above. DERMATOLOGIC: None. HEMATOLOGICAL: None. LYMPHATICS: None. PSYCHIATRY: None. NEUROLOGICAL: None. PAST HISTORY: 1. COPD. 2. Obstructive sleep apnea. 3. Hypothyroid. 4. Breast cancer. PAST SURGICAL HISTORY: 1. Right mastectomy. 2. Bariatric surgery. 3. Cholecystectomy. 4. Hernia repair. 5. Hysterectomy. 6. Lap band; now removed. 7. Stomach bypass. SOCIAL HISTORY: Does not smoke. No alcohol. . FAMILY HISTORY: Colon and esophageal cancer. HOME MEDICATIONS: 1. Thiamine 100 mg a day. 2. Aleve 220 mg b.i.d. p.r.n. 3. Synthroid 375 mcg a day. 4. Motrin 800 mg p.o. t.i.d. p.r.n. 5. Vitamin D2 50,000 units on Sundays. 6. Coreg CR 10 mg p.o. daily. ALLERGIES: 1. ADHESIVE. 2. COMPAZINE. 3. ZANTAC. PHYSICAL EXAMINATION: VITAL SIGNS ON PRESENTATION: Temperature 98.8, pulse 75, respiration 18, blood pressure 224/98, pulse ox 96% on room air. Repeat blood pressure 182/69. GENERAL APPEARANCE: Obese. BMI of 42.9. Lying in bed. Not in distress. EYES: Pupils equal. Conjunctivae normal. HEENT : Oral cavity normal. NECK: JVD not raised. Mass not palpable. RESPIRATORY: Effort normal. LUNGS: Decreased breath sounds. CARDIOVASCULAR: First and second sounds normal. No edema. ABDOMEN: Soft, non-tender. Liver and spleen not palpable. LYMPHATICS: No lymph node palpable in neck or axillae. PSYCHIATRY: Alert and oriented x3. Mood and affect normal. EXTREMITIES: Right knee in a brace. INVESTIGATIONS: White count 10.3, hemoglobin 13.2. Potassium 4.0. BUN 18, creatinine 0.60. CT scan of the knee showed a lytic lesion in the lateral femoral condyle with associated cortical destruction and pathological fracture, suspicious for neoplasm. Doppler ultrasound negative for DVT. Bone scan suggestive of metastatic lesion in the distal right knee. Abdomen, chest and pelvic CT scan shows hepatosplenomegaly, non-specific findings in the cecum. ASSESSMENT: 1. This is a patient with lytic lesion in the distal part of the femur in a patient with known breast cancer that was treated with chemotherapy and radiation. This well could be metastatic disease. 2. Hepatosplenomegaly; cause unclear. 3. Chronic obstructive pulmonary disease in a nonsmoker. 4. Morbid obesity; BMI of 42.9, with a prior history of gastric surgery. 5. Hypothyroidism. PLAN: Dr. Fiore from Oncology was consulted. So was Orthopedics. ( ) placed on the right leg. Care was discussed with the patient and . Home medications are resumed. MTDD
--- NOTE | 2017-05-12 19:11 | P.PN ---
Subjective Principal diagnosis: Lytic lesion right distal femur The patient remains nonweightbearing. Pain is reasonably controlled. Swelling around the right knee persists Objective - Vital Signs Vital signs: Vital Signs Temp 97.1 F L 05/12/17 14:48 Pulse 80 05/12/17 17:29 Resp 16 05/12/17 14:48 BP 163/53 05/12/17 17:29 Pulse Ox 94 L 05/12/17 14:48 Intake & Output 05/12/17 05/12/17 05/13/17 06:59 18:59 06:59 Intake Total 1935 1000 Output Total 1250 Balance 685 1000 Intake: IV 1000 Sodium Chloride 0.9% 1, 1000 000 ml @ 125 mls/hr IV . Q8H [facility] Rx#:[id number] Intake, IV Titration 1185 Amount Sodium Chloride 0.9% 1, 1185 000 ml @ 125 mls/hr IV . Q8H [facility] Rx#:[id number] Oral 750 Output: Urine 1250 Other: Voiding Method Bedpan # Voids 3 1 - Constitutional General appearance: Present: no acute distress - EENT Eyes: Present: EOMI, PERRLA ENT: Present: hearing grossly normal, normal oropharynx - Respiratory Respiratory: bilateral: CTA - Cardiovascular Rhythm: regular Heart sounds: normal: S1, S2 - Gastrointestinal General gastrointestinal: Present: normal bowel sounds, soft - Integumentary Integumentary: Present: normal - Neurologic Neurologic: Present: CNII-XII intact - Musculoskeletal Musculoskeletal: Present: right sided weakness - Psychiatric Psychiatric: Present: A&O x's 3, appropriate affect - Labs CBC & Chem 7: 05/12/17 06:47 05/12/17 06:47 Labs: Abnormal Lab Results - Last 24 Hours (Table) 05/12/17 05/12/17 Range/Units 06:47 06:47 Lymphocytes # 0.9 L (1.0-4.8) k/uL Creatinine 0.50 L (0.52-1.04) mg/dL Glucose 129 H (74-99) mg/dL Alkaline Phosphatase 287 H (38-126) U/L Total Protein 5.7 L (6.3-8.2) g/dL Albumin 3.3 L (3.5-5.0) g/dL Microbiology - Last 24 Hours (Table) 05/11/17 00:04 Urine Culture - Preliminary Urine,Voided Gram Neg Bacilli Assessment and Plan (1) Lytic bone lesion of right femur Narrative/Plan: The clinical presentation is most consistent with metastatic involvement. Computed tomography scan of chest abdomen and pelvis, as well as bone scan, revealed no other abnormality. The patient has a known history of breast cancer , but this clinical presentation, of solitary lesion in her distal long bone is somewhat unusual. Therefore a biopsy was felt to be appropriate. Other imaging studies being negative, this was the only available target. Biopsy was discussed with interventional radiology, as well as with the orthopedic service. They both indicated, that needle biopsy would be high risk for causing further breakdown of the bone in that area. Therefore orthopedic oncology involvement was felt to be desirable. In any case, without surgical intervention, the patient would essentially be nonweightbearing on that limb. The case was therefore discussed with orthopedic oncology at [facility]. They agreed with a plan to transfer the patient to that facility, so that she can be evaluated and have the appropriate intervention there, as well as biopsy. Status: Acute (2) Breast cancer, right breast Narrative/Plan: The patient does have a history of triple negative, invasive breast cancer. Therefore metastasis from breast cancer is felt to be the primary concern. Tumor markers, as well as CT chest abdomen and pelvis and bone scan show no other abnormality. Therefore, if biopsy does confirm breast cancer, given that this appears to represent oligo metastatic disease, there would be a possibility of treating the patient more aggressively, with essentially a curative intent again. Status: Chronic
--- NOTE | 2017-05-12 19:40 | P.DS ---
<Jes Monique - Last Filed: 05/12/17 19:26> Providers Date of admission: 05/11/17 01:04 Expected date of discharge: 05/12/17 Attending physician: Wali Quispe Consults: 05/11/17 01:01 Consult Physician Stat Consulting Provider: Ricki Fiore Consult Reason/Comments: Breast cancer, metastasis Do you want consulting provider notified?: Yes Consult Physician Stat Consulting Provider: Eros Sosa Consult Reason/Comments: knee fracture Do you want consulting provider notified?: Yes Primary care physician: [facility] Course: FINAL DIAGNOSES: -Lytic lesion on distal femur in a patient with known breast cancer treated with chemo and radiation likely metastatic disease. -Hepatosplenomegaly, cause unclear. -Chronic obstructive pulmonary disease in a nonsmoker. -Morbid obesity BMI of 42.9, with prior history of gastric surgery. -Hypothyroidism. HOSPTIAL COURSE: 57-year-old female with known history of breast cancer, with chemotherapy treatment presented with right knee pain which was increasing after she had purchased pain at in physical therapy. X-ray of the knee and computed tomography scan revealed a 3.7 cm lytic lesion on the right lateral femoral condyle. Oncology was consulted, orthopedics consulted, pain medications added. Orthopedics placed the leg in an immobilizer with nonweightbearing status. Oncology has ordered CT CAP bone scan and tumor markers. Interventional radiology was consulted for a biopsy however concerns for further breakdown of the bone and it is felt that orthopedic oncology involvement to be necessary. This therefore requires a transfer to [facility] with the patient to be admitted to the internal medicine service under Dr. Blake and Dr. Sauer from orthopedic oncology to be consulted on the case for appropriate intervention and possible biopsy. PHYSICAL EXAM: CARDIOVASCULAR: First and second sounds noted, edema noted to the right knee RESPIRATORY: Effort normal, bilateral breath sounds decreased: MUSKULOSKELETAL: Right knee swelling noted, right leg exquisite tenderness with movement, palpable pedal pulses Patient was seen and examined by nurse practitioner Jes Monique in all elements of the case discussed with attending Dr. Quispe DISPOSITION: Transfer service to [facility] under internal medicine service attending physician Dr. Blake and consult Dr. Sauer of orthopedic oncology. Plan - Discharge Summary New Discharge Prescriptions: No Action Levothyroxine Sodium [Synthroid] 75 mcg PO QAM Levothyroxine Sodium [Synthroid] 300 mcg PO QAM Carvedilol Phosphate [Coreg Cr] 10 mg PO QAM Ergocalciferol (Vitamin D2) [Vitamin D2] 50,000 unit PO CHAVEZ Thiamine [Vitamin B-1] 100 mg PO DAILY Naproxen Sodium [Aleve] 220 mg PO BID PRN PRN Reason: Pain Ibuprofen [Motrin] 800 mg PO TID PRN PRN Reason: Pain Discharge Medication List Carvedilol Phosphate [Coreg Cr] 10 mg PO QAM 01/16/16 [History] Levothyroxine Sodium [Synthroid] 75 mcg PO QAM 01/16/16 [History] Levothyroxine Sodium [Synthroid] 300 mcg PO QAM 01/16/16 [History] Ergocalciferol (Vitamin D2) [Vitamin D2] 50,000 unit PO CHAVEZ 08/27/16 [History] Thiamine [Vitamin B-1] 100 mg PO DAILY 08/27/16 [History] Ibuprofen [Motrin] 800 mg PO TID PRN 05/10/17 [History] Naproxen Sodium [Aleve] 220 mg PO BID PRN 05/10/17 [History] Follow up Appointment(s)/Referral(s): Markell Ramirez DO [Primary Care Provider] - 1-2 days Activity/Diet/Wound Care/Special Instructions: Knee Immobilizer through [employer] [phone]. Discharge Disposition: DISCH TO [facility] <Wali Quispe - Last Filed: 05/12/17 21:45> Hospital Course: Attending note. Date of service-05/12/2017 This patient was seen and examined by me . I reviewed the note of my nurse practitioner, Ms. Monique. Discussed with her, additional findings as below. Earlier today spoke to the patient. Dr. Fiore has spoken to an oncologist from [facility]. I spoke to the internal medicine physician Dr. Blake quality control projectionist and updated him on the patient. He accepted the patient. Patient is also ready for transfer On examination: Lungs-decreased breath sounds, right total knee in a brace Investigations: As above Assessment and plan: Right distal femur with lytic lesion. Arrangements are being made for patient to be transferred. This is for higher level of care and the patient to be seen by an orthopedic oncologist. Discharge planning more than 35 minutes.
[2017-05-16] MEDS ORDERED: ERGOCALCIFEROL 50,000 UNIT CAP PO SCH (12:00)
== END 2017-05-12 20:34 | disposition short-term general hospital (02) | DRG 543 ==
LOC: EC 20:22 → 3SUR 05-11 01:04
PROVIDERS: ADMIT Hospitalist; ATTEND Hospitalist
DX: M84.551A Pathological fracture in neoplastic disease, right femur, initial encounter for fracture (principal); C79.51 Secondary malignant neoplasm of bone; Z68.41 Body mass index [BMI] 40.0-44.9, adult; R16.2 Hepatomegaly with splenomegaly, not elsewhere classified; E66.01 Morbid (severe) obesity due to excess calories; N39.0 Urinary tract infection, site not specified; G47.33 Obstructive sleep apnea (adult) (pediatric); J44.9 Chronic obstructive pulmonary disease, unspecified; E03.9 Hypothyroidism, unspecified; Z79.899 Other long term (current) drug therapy; Z85.3 Personal history of malignant neoplasm of breast; Z90.11 Acquired absence of right breast and nipple; Z92.21 Personal history of antineoplastic chemotherapy; Z92.3 Personal history of irradiation; Z98.84 Bariatric surgery status; Z90.49 Acquired absence of other specified parts of digestive tract; Z90.710 Acquired absence of both cervix and uterus; Z88.8 Allergy status to other drugs, medicaments and biological substances; Z91.048 Other nonmedicinal substance allergy status
CPT/HCPCS: 36415; 71260; 74177; 78306; 80053; 81001; 85025; 85610; 85730; 86300; 87077; 87086; 87186; 96365; 96375; 99285

== ENCOUNTER 2017-06-04 17:31 | Emergency (ER) | payer BC ==
[2017-06-04 17:50] VITALS: RESP 18; TEMP 99.4
[2017-06-04] MEDS ORDERED: CARVEDILOL 6.25 MG TAB PO STA (18:16)
[2017-06-04 18:32] LABS: Basophils % (A) 0 %; Eosinophils # (A) 0.2 k/uL (0-0.7); Eosinophils % (A) 4 %; HCT 34.5 % (34.0-46.0); HGB 10.9 gm/dL (11.4-16.0); Hypochromasia Marked; Luc # (Auto) 0.05; Luc % (Auto) 1; Lymphocytes # (A) 0.9 k/uL (1.0-4.8); Lymphocytes % (A) 17 %; MCH 29.6 pg (25.0-35.0); MCHC 31.5 g/dL (31.0-37.0); MCV 93.8 fL (80.0-100.0); Mean Platelet Volume 7.7; Monocytes # (A) 0.3 k/uL (0-1.0); Monocytes % (A) 6 %; Neutrophils # (A) 3.7 k/uL (1.3-7.7); Neutrophils % (A) 72 %; Poikilocytosis Slight; RBC 3.68 m/uL (3.80-5.40); RDW 15.4 % (11.5-15.5); WBC 5.1 k/uL (3.8-10.6); WBC (Perox) 4.97
[2017-06-04 18:46] LABS: ALT 25 U/L (9-52); AST 17 U/L (14-36); Alkaline Phosphatase 144 U/L (38-126); Anion Gap 7 mmol/L; Blood Urea Nitrogen 17 mg/dL (7-17); Calcium 8.9 mg/dL (8.4-10.2); Carbon Dioxide 24 mmol/L (22-30); Chloride 109 mmol/L (98-107); Glucose 102 mg/dL (74-99); Non-African American GFR(MDRD) >60 (>60 ml/min/1.73 sqM); Potassium 3.9 mmol/L (3.5-5.1); Sodium 140 mmol/L (137-145); Total Bilirubin 0.5 mg/dL (0.2-1.3); Total Protein 5.9 g/dL (6.3-8.2)
--- NOTE | 2017-06-04 18:57 | US ---
EXAMINATION TYPE: US venous doppler duplex LE RT DATE OF EXAM: 06/04/2017 6:14 PM COMPARISON: Prior in PACS CLINICAL HISTORY: Pain and redness post-op right knee replacement. SIDE PERFORMED: Right TECHNIQUE: The lower extremity deep venous system is examined utilizing real time linear array sonog jannette with graded compression, doppler sonography and color-flow sonography. VESSELS IMAGED: External Iliac Vein (EIV) Common Femoral Vein Deep Femoral Vein Greater Saphenous Vein * Femoral Vein Popliteal Vein Small Saphenous Vein * Proximal Calf Veins (* superficial vessels) Right Leg: Appears negative for DVT IMPRESSION: Negative exam. No evidence of deep venous thrombosis in the right leg.
[2017-06-04 19:25] VITALS: BP 186/86; PULSE 67
--- NOTE | 2017-06-04 19:25 | ED ---
General Adult HPI - General Chief complaint: Skin/Abscess/Foreign Body Stated complaint: POST OP INFECTION Time Seen by Provider: 06/04/17 17:53 Source: patient, RN notes reviewed Mode of arrival: ambulatory Limitations: no limitations - History of Present Illness Initial comments: 57-year-old female presents for evaluation of right knee incision. Patient had total right knee replacement approximately 2-1/2 weeks ago. She had her sutures removed on Wednesday. She's had worsening erythema since that time. No purulent drainage, there is some mild crusting over the incision. No fever or chills. Pain is been improving since the operation. Her mobility has also been increasing. No difficulty moving the joint. Pain is localized to the incision. She also noted some swelling in her leg which has been constant since the operation. - Related Data Home Medications Medication Instructions Recorded Confirmed Carvedilol Phosphate [Coreg Cr] 10 mg PO QAM 01/16/16 06/04/17 Levothyroxine Sodium [Synthroid] 300 mcg PO QAM 01/16/16 06/04/17 Ergocalciferol (Vitamin D2) 50,000 unit PO CHAVEZ 08/27/16 06/04/17 [Vitamin D2] Thiamine [Vitamin B-1] 100 mg PO DAILY 08/27/16 06/04/17 Ibuprofen [Motrin] 800 mg PO TID PRN 05/10/17 06/04/17 Naproxen Sodium [Aleve] 220 mg PO BID PRN 05/10/17 06/04/17 Cyanocobalamin [Vitamin B-12 1,000 mcg SQ FR 06/04/17 06/04/17 Injection] Enoxaparin [Lovenox] 40 mg SQ DAILY 06/04/17 06/04/17 Ferrous Sulfate [Feosol] 325 mg PO BID 06/04/17 06/04/17 Nystatin [Nystop] 1 applic TOPICAL BID 06/04/17 06/04/17 Tiotropium 18 Mcg/Puff [Spiriva] 1 cap INHALATION RT-DAILY 06/04/17 06/04/17 oxyCODONE-APAP 5-325MG [Percocet 1 - 2 tab PO Q4-6H PRN 06/04/17 06/04/17 5-325 mg] Previous Rx's Medication Instructions Recorded Cephalexin [Keflex] 500 mg PO Q8HR #21 cap 06/04/17 Allergies Allergy/AdvReac Type Severity Reaction Status Date / Time adhesive Allergy Rash/Hives Verified 06/04/17 18:56 prochlorperazine Allergy Swelling Verified 06/04/17 18:56 [From Compazine] prochlorperazine edisylate Allergy Swelling Verified 06/04/17 18:56 [From Compazine] prochlorperazine maleate Allergy Swelling Verified 06/04/17 18:56 [From Compazine] ranitidine HCl [From Zantac] Allergy Swelling Verified 06/04/17 18:56 Review of Systems ROS Statement: Those systems with pertinent positive or pertinent negative responses have been documented in the HPI. ROS Other: All systems not noted in ROS Statement are negative. Past Medical History Past Medical History: Cancer, Chest Pain / Angina, COPD, Sleep Apnea/CPAP/BIPAP , Thyroid Disorder Additional Past Medical History / Comment(s): NO CPAP. Hx: POST MENOPAUSAL BLEEDING. Weight loss of 100lb. bone cx and breast cancer History of Any Multi-Drug Resistant Organisms: None Reported Past Surgical History: Bariatric Surgery, Breast Surgery, Cholecystectomy, Hernia Repair, Hysterectomy, Tubal Ligation Additional Past Surgical History / Comment(s): Lap band, now removed. Stomach bypass. Left breast bx (NEG). Past Anesthesia/Blood Transfusion Reactions: No Reported Reaction Additional Past Anesthesia/Blood Transfusion Reaction / Comment(s): STATES MOTHER HAD DIFFICULTY WAKING UP. Past Psychological History: No Psychological Hx Reported Smoking Status: Never smoker Past Alcohol Use History: None Reported Past Drug Use History: None Reported - Past Family History Father Family Medical History: Cancer Additional Family Medical History / Comment(s): colon and esophagus cancer General Exam Limitations: no limitations General appearance: alert, in no apparent distress Head exam: Present: atraumatic, normocephalic Eye exam: Present: normal appearance, PERRL ENT exam: Present: normal exam Neck exam: Present: normal inspection, full ROM Respiratory exam: Present: normal lung sounds bilaterally. Absent: respiratory distress, wheezes Cardiovascular Exam: Present: regular rate, normal rhythm GI/Abdominal exam: Present: soft. Absent: distended, tenderness Extremities exam: Present: other (Bilateral extremity, incision on the right knee, there is mild erythema, no fluctuance, no induration, no purulence. There is diffuse swelling to the right lower extremity and 2+ pitting edema at the foot.). Absent: calf tenderness Neurological exam: Present: alert, oriented X3, CN II-XII intact. Absent: motor sensory deficit Psychiatric exam: Present: normal affect, normal mood Skin exam: Present: warm, dry, intact Course Vital Signs 06/04/17 06/04/17 17:45 18:29 Temperature 99.4 F Pulse Rate 66 Respiratory 18 Rate Blood Pressure 209/94 197/78 O2 Sat by Pulse 98 Oximetry Medical Decision Making - Medical Decision Making 57-year-old female presenting for evaluation of right knee surgical incision. There is mild erythema, no fluctuance, no induration, no purulence. Range of motion at the knee is normal. There is swelling to the right lower extremity with 2+ pitting edema this is much greater than the left. Patient states the swelling has been present since the operation. Patient is afebrile, blood pressure is elevated. Laboratory studies are obtained, no elevated white blood cell count, normal creatinine in the setting of hypertension. Patient has no headache, no chest pain. She is given additional dose of her home antihypertensive medication. Ultrasound is obtained secondary to right lower extremity swelling. This is negative for DVT. Patient has an appointment with her primary care physician on Wednesday. We will be evaluated at that time as well as elevated blood pressure. Patient feels her blood pressure is elevated secondary to stress at home, she does have a mother who is currently on hospice and not doing well. She will take her blood pressure at home so that this information is available for her primary care physician on Wednesday. She started on Keflex for mild superficial infection of her incision. She will return to emergency department with fever, chills, worsening pain swelling or purulence from the incision. Diagnosis: Incisional cellulitis, uncontrolled hypertension - Lab Data Result diagrams: 06/04/17 18:25 06/04/17 18:25 Lab Results 06/04/17 06/04/17 Range/Units 18:25 18:25 WBC 5.1 (3.8-10.6) k/uL RBC 3.68 L (3.80-5.40) m/uL Hgb 10.9 L (11.4-16.0) gm/dL Hct 34.5 (34.0-46.0) % MCV 93.8 (80.0-100.0) fL MCH 29.6 (25.0-35.0) pg MCHC 31.5 (31.0-37.0) g/dL RDW 15.4 (11.5-15.5) % Plt Count 250 (150-450) k/uL Neutrophils % 72 % Lymphocytes % 17 % Monocytes % 6 % Eosinophils % 4 % Basophils % 0 % Neutrophils # 3.7 (1.3-7.7) k/uL Lymphocytes # 0.9 L (1.0-4.8) k/uL Monocytes # 0.3 (0-1.0) k/uL Eosinophils # 0.2 (0-0.7) k/uL Basophils # 0.0 (0-0.2) k/uL Hypochromasia Marked Poikilocytosis Slight Sodium 140 (137-145) mmol/L Potassium 3.9 (3.5-5.1) mmol/L Chloride 109 H (98-107) mmol/L Carbon Dioxide 24 (22-30) mmol/L Anion Gap 7 mmol/L BUN 17 (7-17) mg/dL Creatinine 0.90 (0.52-1.04) mg/dL Est GFR (MDRD) Af Amer >60 (>60 ml/min/1.73 sqM) Est GFR (MDRD) Non-Af >60 (>60 ml/min/1.73 sqM) Glucose 102 H (74-99) mg/dL Calcium 8.9 (8.4-10.2) mg/dL Total Bilirubin 0.5 (0.2-1.3) mg/dL AST 17 (14-36) U/L ALT 25 (9-52) U/L Alkaline Phosphatase 144 H (38-126) U/L Total Protein 5.9 L (6.3-8.2) g/dL Albumin 3.4 L (3.5-5.0) g/dL Disposition Clinical Impression: Incisional infection, Hypertension Disposition: HOME SELF-CARE Condition: Good Instructions: Cellulitis (ED), Hypertension (ED) Prescriptions: Cephalexin [Keflex] 500 mg PO Q8HR #21 cap Referrals: Markell Ramirez DO [Primary Care Provider] - 1-2 days Time of Disposition: 19:23
== END 2017-06-04 19:39 | disposition home or self-care (01) ==
LOC: EC 17:31
DX: T81.4XXA Infection following a procedure, initial encounter (principal); I10 Essential (primary) hypertension; E07.9 Disorder of thyroid, unspecified; G47.30 Sleep apnea, unspecified; Z99.89 Dependence on other enabling machines and devices; Z96.651 Presence of right artificial knee joint; Z98.890 Other specified postprocedural states; Z85.830 Personal history of malignant neoplasm of bone; Z85.3 Personal history of malignant neoplasm of breast; Z79.899 Other long term (current) drug therapy; Z79.01 Long term (current) use of anticoagulants; Z88.8 Allergy status to other drugs, medicaments and biological substances; Z91.048 Other nonmedicinal substance allergy status
CPT/HCPCS: 36415; 80053; 85025; 99283

== ENCOUNTER → 2017-06-05 | Outpatient (CLI) | payer BC ==
--- NOTE | 2017-06-07 06:50 | PE ---
EXAMINATION TYPE: PET CT fusion whole body DATE OF EXAM: 06/05/2017 COMPARISON: Nuclear medicine bone scan dated 05/11/2017 and PET scan dated 08/22/[address] abd omen pelvis dated 05/11/2017. 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 TECHNIQUE: Following the intravenous administration of 13.37. mCi of F-18 FDG, whole body images are performed from the skull base to the midthigh. Images are reviewed on the computer in the coronal, axial, and sagittal planes. Reconstructed rotating images are created on independent workstation and reviewed on the computer. A localization and attenuation correction CT is performed in conjunction with the PET scan. FINDINGS: SKULL BASE AND NECK: No suspicious hypermetabolic uptake. CHEST, MEDIASTINUM, AND HILAR REGION: Background mediastinal uptake measures a maximum SUV of 2.79. R ight-sided mastectomy has been performed. Right-sided Mediport is seen with its distal tip terminatin g in the superior vena cava/right atrial junction. No suspicious hypermetabolic uptake is appreciated . ABDOMEN AND PELVIS: Background abdominal uptake measures maximum SUV of 3.35. Activity within the lef t gluteal muscles may relate to muscular activity during the examination or misregistration as no foc al masses seen and there is little suspicious for underlying neoplastic lesion. Maximal SUV of 3.54. Cecal uptake of 4.49 maximum SUV is thought to be physiologic as adjacent loop of ileum measures maxi mal SUV of 7.43. OSSEOUS STRUCTURES: Hypermetabolic uptake surrounding the right knee arthroplasty is appreciated. Flu id is seen adjacent to the arthroplasty as well as subcutaneous edema within the visualized entirety of the right lower extremity. In the region of the known lytic lesion where a atelectatic fracture oc curred there is hypermetabolic uptake measuring maximum SUV of 6.94. However, this region is slightly limited in evaluation due to the right femoral arthroplasty and extensive spray artifact. OTHER CT: Generalized hypoattenuation of the hepatic parenchyma most commonly relates to hepatic stea tosis. Cholecystectomy clips are seen within the gallbladder fossa. There is redemonstration of splen omegaly. Incidental note is made of a left retroaortic renal vein. Postoperative changes are present at the gastroesophageal junction. No adenopathy. Small periumbilical fat filled hernia is present. IMPRESSION: 1. No evidence of metastasis within the chest, abdomen, or pelvis. 2. Hypermetabolic uptake around the right knee arthroplasty and likely postoperative adjacent fluid a nd right lower extremity edema. Prior CT findings and hypermetabolic uptake are suspicious for neopla sm with metastasis considered a primary diagnostic consideration, however inflammatory postop inflamm atory change could also contribute to the hypermetabolic uptake. Orthopedic oncologic consultation co uld be performed for potential tissue sampling if samples were not sent during right femoral fixation of a pathologic fracture. 3. FDG avidity within the left gluteal musculature that is favored to represent muscular activity dur ing the examination as no focal mass is identified. If clinically indicated further evaluation with e nhanced MRI could be performed of the pelvis.
== END ==
LOC: RADPETMAIN 12:29
PROVIDERS: ATTEND Internal Medicine Hematology & Oncology
DX: M84.551A Pathological fracture in neoplastic disease, right femur, initial encounter for fracture (principal)
CPT/HCPCS: 78816; A9552

== ENCOUNTER 2017-07-30 06:53 | Emergency (ER) | payer BC ==
--- NOTE | 2017-07-30 07:06 | ED ---
Chest Pain HPI - General Source: patient, family Mode of arrival: wheelchair Limitations: no limitations - History of Present Illness Complaint: chest pain Onset/Timin -: hour(s) Onset: during rest Pain Location: left chest Pain Radiation: none Severity: moderate Quality: aching, heaviness Consistency: constant Improves With: nothing Worsens With: inspiration, palpation Treatments Prior to Arrival: none <Surendra Joy - Last Filed: 07/30/17 07:14> <Fco Howard - Last Filed: 07/30/17 10:52> - General Chief Complaint: Chest Pain Stated Complaint: Chest Pain Time Seen by Provider: 07/30/17 07:01 - History of Present Illness Initial Comments: this patient is a 57-year-old woman with history of "bone cancer" involving the right femur who presents to be evaluated for left-sided chest pain that developed around 2:30 this morning, while she was resting. She indicates that it is an aching or pressure on the chest. She has noted that it is worse with palpation or with taking a deep breath. She states that it is moderate intensity. She has not discovered any relieving factors. (Surendra Joy) - Related Data Home Medications Medication Instructions Recorded Confirmed Levothyroxine Sodium [Synthroid] 300 mcg PO QAM 01/16/16 07/30/17 Ergocalciferol (Vitamin D2) 50,000 unit PO CHAVEZ 08/27/16 07/30/17 [Vitamin D2] Thiamine [Vitamin B-1] 100 mg PO DAILY 08/27/16 07/30/17 Ferrous Sulfate [Feosol] 325 mg PO BID 06/04/17 07/30/17 Nystatin [Nystop] 1 applic TOPICAL BID PRN 06/04/17 07/30/17 Tiotropium 18 Mcg/Puff [Spiriva] 1 cap INHALATION RT-DAILY 06/04/17 07/30/17 oxyCODONE-APAP 5-325MG [Percocet 1 - 2 tab PO Q4-6H PRN 06/04/17 07/30/17 5-325 mg] Apixaban [Eliquis] 5 mg PO BID 07/30/17 07/30/17 Carvedilol [Coreg] 25 mg PO BID 07/30/17 07/30/17 NIFEdipine [NIFEdipine ER] 30 mg PO DAILY 07/30/17 07/30/17 Torsemide [Demadex] 20 mg PO DAILY 07/30/17 07/30/17 Allergies Allergy/AdvReac Type Severity Reaction Status Date / Time adhesive Allergy Rash/Hives Verified 07/30/17 07:27 prochlorperazine Allergy Swelling Verified 07/30/17 07:27 [From Compazine] prochlorperazine edisylate Allergy Swelling Verified 07/30/17 07:27 [From Compazine] prochlorperazine maleate Allergy Swelling Verified 07/30/17 07:27 [From Compazine] ranitidine HCl [From Zantac] Allergy Swelling Verified 07/30/17 07:27 Review of Systems ROS Other: All systems not noted in ROS Statement are negative. Constitutional: Denies: fever, chills Respiratory: Denies: cough, dyspnea, wheezes, hemoptysis Cardiovascular: Reports: chest pain, edema (chronic). Denies: palpitations, dyspnea on exertion, orthopnea, syncope Gastrointestinal: Denies: abdominal pain, vomiting, diarrhea Genitourinary: Denies: dysuria, hematuria Musculoskeletal: Denies: back pain Skin: Denies: rash Neurological: Denies: headache, weakness, numbness <Surendra Joy - Last Filed: 07/30/17 07:14> ROS Other: All systems not noted in ROS Statement are negative. <Fco Howard - Last Filed: 07/30/17 10:52> ROS Statement: Those systems with pertinent positive or pertinent negative responses have been documented in the HPI. EKG Findings - EKG Results: EKG: interpreted by ERMD, sinus rhythm (rate 92 bpm), normal axis - Blocks, [place], Hypertrophy, ST Abn: Repolarization changes or abnormalities: ST or T wave suggestive of ischemia (T inversions leads V2 through V4.), Q-T interval prolongation <Surendra Joy - Last Filed: 07/30/17 07:14> Past Medical History Past Medical History: Cancer, Chest Pain / Angina, COPD, Pulmonary Embolus (PE) , Sleep Apnea/CPAP/BIPAP, Thyroid Disorder Additional Past Medical History / Comment(s): NO CPAP. Hx: POST MENOPAUSAL BLEEDING. Weight loss of 100lb. bone cx and breast cancer History of Any Multi-Drug Resistant Organisms: None Reported Past Surgical History: Bariatric Surgery, Breast Surgery, Cholecystectomy, Hernia Repair, Hysterectomy, Tubal Ligation Additional Past Surgical History / Comment(s): Lap band, now removed. Stomach bypass. Left breast bx (NEG). Past Anesthesia/Blood Transfusion Reactions: No Reported Reaction Additional Past Anesthesia/Blood Transfusion Reaction / Comment(s): STATES MOTHER HAD DIFFICULTY WAKING UP. Past Psychological History: No Psychological Hx Reported Smoking Status: Never smoker - Past Family History Father Family Medical History: Cancer Additional Family Medical History / Comment(s): colon and esophagus cancer <Surendra Joy - Last Filed: 07/30/17 07:14> General Exam Limitations: no limitations General appearance: alert, in no apparent distress, obese Head exam: Present: atraumatic, normocephalic Eye exam: Present: normal appearance Neck exam: Present: normal inspection Respiratory exam: Present: normal lung sounds bilaterally, chest wall tenderness. Absent: respiratory distress, wheezes, rales, rhonchi, stridor, accessory muscle use, decreased breath sounds, prolonged expiratory Cardiovascular Exam: Present: regular rate, normal rhythm, normal heart sounds. Absent: systolic murmur, diastolic murmur, rubs, gallop GI/Abdominal exam: Present: soft. Absent: distended, tenderness, guarding, rebound, mass Extremities exam: Present: normal inspection, normal capillary refill. Absent: pedal edema, calf tenderness Back exam: Present: normal inspection. Absent: CVA tenderness (R), CVA tenderness (L) Skin exam: Present: warm, dry, intact, normal color. Absent: rash <Surendra Joy - Last Filed: 07/30/17 07:14> Vital Signs 07/30/17 07/30/17 07/30/17 07:00 08:25 08:40 Temperature 99.4 F Pulse Rate 95 78 80 Respiratory 16 16 16 Rate Blood Pressure 161/93 157/75 155/74 O2 Sat by Pulse 96 98 98 Oximetry 07/30/17 07/30/17 07/30/17 09:10 09:40 10:10 Temperature Pulse Rate 80 80 82 Respiratory 16 18 18 Rate Blood Pressure 132/74 151/72 160/77 O2 Sat by Pulse 98 98 98 Oximetry Chest Pain MDM <Surendra Joy - Last Filed: 07/30/17 07:14> <Fco Howard - Last Filed: 07/30/17 10:52> - MDM I did review the imaging and reports and did discuss the findings with radiologist. Patient does demonstrate bilateral pulmonary emboli. There is not appear to be evidence for heart strain this time. I did discuss the findings with the patient and family members as well as with the hospitalist service patient will be admitted for inpatient evaluation and treatment. Patient has agreed to be admitted here as opposed to being transferred to [facility] in [place]. (Fco Howard) Disposition <Surendra Joy - Last Filed: 07/30/17 07:14> <Fco Howard - Last Filed: 07/30/17 10:52> Clinical Impression: Pulmonary embolism on left, Pulmonary embolism on right, Failure of outpatient treatment Disposition: ADMITTED IP TO THIS [facility] Condition: Stable Referrals: Markell Ramirez DO [Primary Care Provider] - 1-2 days
[2017-07-30 07:31] LABS: Anisocytosis Slight; Basophils # (A) 0.1 k/uL (0-0.2); Basophils % (A) 1 %; CH 27.2; CHCM 30.7; Eosinophils % (A) 0 %; HCT 40.4 % (34.0-46.0); HDW 3.61; Hypochromasia Marked; Luc % (Auto) 2; Lymphocytes # (A) 0.9 k/uL (1.0-4.8); Lymphocytes % (A) 10 %; MCH 26.4 pg (25.0-35.0); MCHC 29.7 g/dL (31.0-37.0); Mean Platelet Volume 7.2; Monocytes # (A) 0.7 k/uL (0-1.0); Monocytes % (A) 8 %; Neutrophils # (A) 7.1 k/uL (1.3-7.7); Neutrophils % (A) 79 %; Poikilocytosis Slight; RBC 4.54 m/uL (3.80-5.40); RDW 16.5 % (11.5-15.5); WBC 8.9 k/uL (3.8-10.6); WBC (Perox) 8.79
[2017-07-30 07:34] LABS: MCV 88.8 fL (80.0-100.0)
[2017-07-30 07:36] LABS: ALT 44 U/L (9-52); AST 20 U/L (14-36); Alkaline Phosphatase 179 U/L (38-126); Amylase <30 U/L (30-110); Anion Gap 6 mmol/L; Blood Urea Nitrogen 13 mg/dL (7-17); Calcium 8.4 mg/dL (8.4-10.2); Carbon Dioxide 35 mmol/L (22-30); Chloride 101 mmol/L (98-107); Glucose 98 mg/dL (74-99); Magnesium 1.8 mg/dL (1.6-2.3); Non-African American GFR(MDRD) >60 (>60 ml/min/1.73 sqM); Sodium 142 mmol/L (137-145); Total Bilirubin 0.4 mg/dL (0.2-1.3); Total Protein 5.9 g/dL (6.3-8.2)
[2017-07-30 07:41] LABS: INR 1.1 (<1.2); Prothrombin Time 10.7 sec (9.0-12.0)
[2017-07-30 07:42] LABS: Partial Thromboplastin Time 22.7 sec (22.0-30.0)
--- NOTE | 2017-07-30 07:42 | XR ---
EXAMINATION TYPE: XR chest 1V portable DATE OF EXAM: 07/30/2017 COMPARISON: 08/10/2016 INDICATION: Chest pain short of breath TECHNIQUE: Single frontal view of the chest is obtained. FINDINGS: The heart size is normal. The pulmonary vasculature is normal. The lungs are clear. Port is present on the right with the tip in the superior vena cava region. No pneumothorax is eviden t. IMPRESSION: 1. No acute pulmonary process.
[2017-07-30] MEDS ORDERED: ENOXAPARIN 120 MG/0.8 ML SYRINGE SQ STA ×2 (07:48→08:01)
[2017-07-30] MEDS ORDERED: RX INFO: IV CONTRAST WAS GIVEN 1 EACH MISC MISCELLANE PRN (07:49)
[2017-07-30 08:03] LABS: Creatine Kinase MB 0.6 ng/mL (0.0-2.4); Troponin I 0.019 ng/mL (0.000-0.034)
[2017-07-30] MEDS ORDERED: POTASSIUM CHLORIDE ER 20 MEQ TAB.ER PO STA (08:11)
--- NOTE | 2017-07-30 08:46 | CT ---
EXAMINATION TYPE: CT chest angio for PE DATE OF EXAM: 07/30/2017 COMPARISON: 06/05/2017 PET/CT and CT chest abdomen pelvis dated 05/11/2017 HISTORY: Chest pain, R/O PE CT DLP: 362.30 mGycm. Automated Exposure Control for Dose Reduction was Utilized. CONTRAST: CTA scan of the thorax is performed with IV Contrast, patient injected with 100 ml mL of Omnipaque 35 0, pulmonary embolism protocol. MIP Images are created on CT scanner and reviewed. FINDINGS: LUNGS: Multiple bilateral pulmonary nodules are identified with the largest in the right lower lobe m easuring 1.1 x 0.8 cm contiguous with the pleural surface. The second largest is located within the l eft lung apex anteriorly measuring 1.0 x 0.8 cm on image 22. Pulmonary nodules are seen within all lo bes with exclusion of the lingula small right and trace left pleural effusions with associated bibasi lar subsegmental compressive atelectasis are noted. The pulmonary nodules all appear new in compariso n to the most recent exams of 05/11/2017 and 06/05/2017 MEDIASTINUM: There is satisfactory enhancement of the pulmonary artery and its branches. Filling defe cts representing pulmonary emboli are seen within the distal aspects of both the right and left main pulmon. Ann arteries extending into the segmental and subsegmental branches of the pulmonary arteries to every lobe within both lungs. There is enlargement of the main pulmonary artery measuring up to 3 .1 cm although there is no bowing of the interventricular septum or reflux of contrast into the infer ior vena cava/hepatic veins to indicate right heart strain. Mediastinal adenopathy is mild with the l argest conglomeration in the right hilum measuring up to 1.1 cm in short axis. No other mediastinal l ymph nodes greater than 1 cm are seen. No axillary or internal mammary adenopathy is noted. No card iomegaly or pericardial effusion is seen. OTHER: Surgical clips at the gastroesophageal junction and near the gallbladder fossa are noted. Sple en is upper limits of normal size in longitudinal dimension measuring 13 cm. IMPRESSION: 1. Acute bilateral pulmonary emboli beginning within both the right and left main pulmonary arteries extending into each segmental and subsegmental branch of both lobes, most appearing nonocclusive, wit h main pulmonary artery enlargement but no other evidence to suggest current right heart strain. 2. New numerous bilateral pulmonary nodules, highly suspicious for metastasis. 3. Interval development of a small right and trace left pleural effusion with associated bibasilar zavala bsegmental adenopathy. 4. Mild mediastinal adenopathy with a single enlarged right hilar lymph node measuring 1.1 cm. 5. Prominent size of the spleen. Findings were relayed to the covering ER physician by Dr. Burkett at 8:43 AM on 07/30/2017.
[2017-07-30] MEDS ORDERED: ACETAMINOPHEN TAB 325 MG TAB PO PRN (10:56)
[2017-07-30] MEDS ORDERED: NALOXONE 0.4 MG/ML 1 ML VIAL IV PRN (10:56)
[2017-07-30] MEDS ORDERED: NYSTATIN 100,000 UNIT/GM POWD 15 GM TOPICAL PRN (10:57)
[2017-07-30] MEDS ORDERED: oxyCODONE-APAP 5-325MG 1 EACH TAB PO PRN (10:57)
[2017-07-30] MEDS ORDERED: HEPARIN SODIUM,PORCINE 5,000 UNIT/ML 1 ML VIAL IV STA (10:59)
[2017-07-30] MEDS ORDERED: SODIUM CHLORIDE 0.9% 1,000 ML IV SCH (11:00)
[2017-07-30] MEDS ORDERED: HEPARIN SODIUM,PORCINE/D5W PMX 25,000 UNIT in DEXTROSE/WATER 1 500ML.BAG IV SCH (11:00)
--- NOTE | 2017-07-30 12:51 | ED ---
Medical Decision Making - Medical Decision Making The patient's care was discussed also with Dr. Busch the negative checker for the patient. Patient be transferred year to year as per direction from the ER staff the accepting service will be the cardiology service. The patient was given Lovenox prior today. I did discuss the findings with Dr. Busch - Lab Data Result diagrams: 07/30/17 07:07 07/30/17 07:07 Lab Results 07/30/17 07/30/17 07/30/17 Range/Units 07:07 07:07 07:07 WBC (3.8-10.6) k/uL RBC (3.80-5.40) m/uL Hgb (11.4-16.0) gm/dL Hct (34.0-46.0) % MCV (80.0-100.0) fL MCH (25.0-35.0) pg MCHC (31.0-37.0) g/dL RDW (11.5-15.5) % Plt Count (150-450) k/uL Neutrophils % % Lymphocytes % % Monocytes % % Eosinophils % % Basophils % % Neutrophils # (1.3-7.7) k/uL Lymphocytes # (1.0-4.8) k/uL Monocytes # (0-1.0) k/uL Eosinophils # (0-0.7) k/uL Basophils # (0-0.2) k/uL Hypochromasia Poikilocytosis Anisocytosis PT 10.7 (9.0-12.0) sec INR 1.1 (<1.2) APTT 22.7 (22.0-30.0) sec D-Dimer 3.55 H (<0.60) mg/L FEU Sodium 142 (137-145) mmol/L Potassium 3.0 L* (3.5-5.1) mmol/L Chloride 101 (98-107) mmol/L Carbon Dioxide 35 H (22-30) mmol/L Anion Gap 6 mmol/L BUN 13 (7-17) mg/dL Creatinine 0.73 (0.52-1.04) mg/dL Est GFR (MDRD) Af Amer >60 (>60 ml/min/1.73 sqM) Est GFR (MDRD) Non-Af >60 (>60 ml/min/1.73 sqM) Glucose 98 (74-99) mg/dL Calcium 8.4 (8.4-10.2) mg/dL Magnesium 1.8 (1.6-2.3) mg/dL Total Bilirubin 0.4 (0.2-1.3) mg/dL AST 20 (14-36) U/L ALT 44 (9-52) U/L Alkaline Phosphatase 179 H (38-126) U/L Total Creatine Kinase 22 L (30-135) U/L CK-MB (CK-2) 0.6 (0.0-2.4) ng/mL CK-MB (CK-2) Rel Index 2.7 Troponin I 0.019 (0.000-0.034) ng/mL Total Protein 5.9 L (6.3-8.2) g/dL Albumin 3.2 L (3.5-5.0) g/dL Amylase <30 L (30-110) U/L Lipase 38 (23-300) U/L 07/30/17 Range/Units 07:07 WBC 8.9 (3.8-10.6) k/uL RBC 4.54 (3.80-5.40) m/uL Hgb 12.0 (11.4-16.0) gm/dL Hct 40.4 (34.0-46.0) % MCV 88.8 D (80.0-100.0) fL MCH 26.4 (25.0-35.0) pg MCHC 29.7 L (31.0-37.0) g/dL RDW 16.5 H (11.5-15.5) % Plt Count 352 (150-450) k/uL Neutrophils % 79 % Lymphocytes % 10 % Monocytes % 8 % Eosinophils % 0 % Basophils % 1 % Neutrophils # 7.1 (1.3-7.7) k/uL Lymphocytes # 0.9 L (1.0-4.8) k/uL Monocytes # 0.7 (0-1.0) k/uL Eosinophils # 0.0 (0-0.7) k/uL Basophils # 0.1 (0-0.2) k/uL Hypochromasia Marked Poikilocytosis Slight Anisocytosis Slight PT (9.0-12.0) sec INR (<1.2) APTT (22.0-30.0) sec D-Dimer (<0.60) mg/L FEU Sodium (137-145) mmol/L Potassium (3.5-5.1) mmol/L Chloride (98-107) mmol/L Carbon Dioxide (22-30) mmol/L Anion Gap mmol/L BUN (7-17) mg/dL Creatinine (0.52-1.04) mg/dL Est GFR (MDRD) Af Amer (>60 ml/min/1.73 sqM) Est GFR (MDRD) Non-Af (>60 ml/min/1.73 sqM) Glucose (74-99) mg/dL Calcium (8.4-10.2) mg/dL Magnesium (1.6-2.3) mg/dL Total Bilirubin (0.2-1.3) mg/dL AST (14-36) U/L ALT (9-52) U/L Alkaline Phosphatase (38-126) U/L Total Creatine Kinase (30-135) U/L CK-MB (CK-2) (0.0-2.4) ng/mL CK-MB (CK-2) Rel Index Troponin I (0.000-0.034) ng/mL Total Protein (6.3-8.2) g/dL Albumin (3.5-5.0) g/dL Amylase (30-110) U/L Lipase (23-300) U/L Disposition Clinical Impression: Pulmonary embolism on left, Pulmonary embolism on right, Failure of outpatient treatment Disposition: OTHER INSTITUTION NOT DEFINED Condition: Stable Referrals: Markell Ramirez DO [Primary Care Provider] - 1-2 days - Out of Hospital Transfer - Req. Specs Out of Hospital Transfer - Requested Specifics: Other Emergency Center
[2017-07-30 14:36] VITALS: RESP 18
[2017-07-30 15:44] VITALS: BP 156/78; PULSE 72; TEMP 97.6
[2017-07-30] MEDS ORDERED: CARVEDILOL 12.5 MG TAB PO SCH (17:30)
[2017-07-30] MEDS ORDERED: FERROUS SULFATE 325 MG TAB PO SCH (21:00)
[2017-07-31] MEDS ORDERED: LEVOTHYROXINE 100 MCG TAB PO SCH (06:30)
[2017-07-31] MEDS ORDERED: NIFEdipine XL 30 MG TAB.ER.24 PO SCH (09:00)
[2017-07-31] MEDS ORDERED: THIAMINE 100 MG TAB PO SCH (09:00)
[2017-07-31] MEDS ORDERED: TORSEMIDE 20 MG TAB PO SCH (09:00)
[2017-07-31] MEDS ORDERED: IPRATROPIUM 0.5 MG/2.5 ML NEBU INHALATION SCH (16:00)
[2017-08-01] MEDS ORDERED: ERGOCALCIFEROL 50,000 UNIT CAP PO SCH (09:00)
== END 2017-07-30 15:43 | disposition other institution (70) ==
LOC: EC 06:53 → 6SEL 10:56 → UNDOADMIN 10:56 → EC 15:43
DX: I26.99 Other pulmonary embolism without acute cor pulmonale (principal); J44.9 Chronic obstructive pulmonary disease, unspecified; E07.9 Disorder of thyroid, unspecified; G47.30 Sleep apnea, unspecified; Z99.89 Dependence on other enabling machines and devices; Z85.3 Personal history of malignant neoplasm of breast; Z85.830 Personal history of malignant neoplasm of bone; Z86.711 Personal history of pulmonary embolism; Z79.01 Long term (current) use of anticoagulants; Z79.51 Long term (current) use of inhaled steroids; Z79.899 Other long term (current) drug therapy; Z88.8 Allergy status to other drugs, medicaments and biological substances; Z91.048 Other nonmedicinal substance allergy status; Z53.29 Procedure and treatment not carried out because of patient's decision for other reasons
CPT/HCPCS: 36415; 93005; 85379; 80053; 82150; 82550; 82553; 83690; 83735; 84484; 85025; 85610; 85730; 71010; 71275; 99285; 96372; Q9967; J1650

== ENCOUNTER 2017-10-06 07:44 | Emergency (ER) | payer BC ==
[2017-10-06 07:48] VITALS: RESP 16
[2017-10-06] MEDS ORDERED: SODIUM CHLORIDE 0.9% 1,000 ML IV STA ×2 (07:51)
[2017-10-06] MEDS ORDERED: ONDANSETRON 4 MG/2 ML VIAL IVP STA (07:51)
--- NOTE | 2017-10-06 08:39 | ED ---
General Adult HPI - General Chief complaint: Dizziness Stated complaint: Weakness Time Seen by Provider: 10/06/17 07:51 Source: patient, RN notes reviewed, old records reviewed Mode of arrival: ambulatory Limitations: no limitations - History of Present Illness Initial comments: This is a 57-year-old female to the ER for evaluation. This patient presents today for evaluation regards to weakness. Patient is history of CVA going through chemotherapy. Patient denies fever. No cough congestion no nausea vomiting no diarrhea. No bowel pain or shortness of breath no chest pain. Patient just not feeling up to it, feels rundown, weak - Related Data Home Medications Medication Instructions Recorded Confirmed Levothyroxine Sodium [Synthroid] 300 mcg PO QAM 01/16/16 10/06/17 Ergocalciferol (Vitamin D2) 50,000 unit PO CHAVEZ 08/27/16 10/06/17 [Vitamin D2] Thiamine [Vitamin B-1] 100 mg PO DAILY 08/27/16 10/06/17 Nystatin [Nystop] 1 applic TOPICAL BID PRN 06/04/17 10/06/17 Tiotropium 18 Mcg/Puff [Spiriva] 1 cap INHALATION RT-DAILY 06/04/17 10/06/17 oxyCODONE-APAP 5-325MG [Percocet 1 - 2 tab PO Q4-6H PRN 06/04/17 10/06/17 5-325 mg] NIFEdipine [NIFEdipine ER] 30 mg PO DAILY PRN 07/30/17 10/06/17 Torsemide [Demadex] 20 mg PO DAILY 07/30/17 10/06/17 Enoxaparin [Lovenox] 100 mg SQ Q12H 10/06/17 10/06/17 Magnesium Oxide [Mag-Ox] 400 mg PO DAILY 10/06/17 10/06/17 Potassium Chloride ER [K-Dur 20] 20 meq PO DAILY 10/06/17 10/06/17 Allergies Allergy/AdvReac Type Severity Reaction Status Date / Time adhesive Allergy Rash/Hives Verified 10/06/17 08:40 prochlorperazine Allergy Swelling Verified 10/06/17 08:40 [From Compazine] prochlorperazine edisylate Allergy Swelling Verified 10/06/17 08:40 [From Compazine] prochlorperazine maleate Allergy Swelling Verified 10/06/17 08:40 [From Compazine] ranitidine HCl [From Zantac] Allergy Swelling Verified 10/06/17 08:40 Review of Systems ROS Statement: Those systems with pertinent positive or pertinent negative responses have been documented in the HPI. ROS Other: All systems not noted in ROS Statement are negative. Past Medical History Past Medical History: Cancer, Chest Pain / Angina, COPD, Pulmonary Embolus (PE) , Sleep Apnea/CPAP/BIPAP, Thyroid Disorder Additional Past Medical History / Comment(s): NO CPAP. Hx: POST MENOPAUSAL BLEEDING. Weight loss of 100lb. bone cx and breast cancer History of Any Multi-Drug Resistant Organisms: None Reported Past Surgical History: Bariatric Surgery, Breast Surgery, Cholecystectomy, Hernia Repair, Hysterectomy, Tubal Ligation Additional Past Surgical History / Comment(s): Lap band, now removed. Stomach bypass. Left breast bx (NEG). Past Anesthesia/Blood Transfusion Reactions: No Reported Reaction Additional Past Anesthesia/Blood Transfusion Reaction / Comment(s): STATES MOTHER HAD DIFFICULTY WAKING UP. Past Psychological History: No Psychological Hx Reported Smoking Status: Never smoker - Past Family History Father Family Medical History: Cancer Additional Family Medical History / Comment(s): colon and esophagus cancer General Exam Limitations: no limitations General appearance: alert, in no apparent distress Head exam: Present: atraumatic, normocephalic, normal inspection Eye exam: Present: normal appearance, PERRL, EOMI. Absent: scleral icterus, conjunctival injection, periorbital swelling ENT exam: Present: normal exam, mucous membranes moist Neck exam: Present: normal inspection. Absent: tenderness, meningismus, lymphadenopathy Respiratory exam: Present: normal lung sounds bilaterally. Absent: respiratory distress, wheezes, rales, rhonchi, stridor Cardiovascular Exam: Present: regular rate, normal rhythm, normal heart sounds. Absent: systolic murmur, diastolic murmur, rubs, gallop, clicks GI/Abdominal exam: Present: soft, normal bowel sounds. Absent: distended, tenderness, guarding, rebound, rigid Extremities exam: Present: normal inspection, full ROM, normal capillary refill. Absent: tenderness, pedal edema, joint swelling, calf tenderness Back exam: Present: normal inspection Neurological exam: Present: alert, oriented X3, CN II-XII intact Psychiatric exam: Present: normal affect, normal mood Skin exam: Present: warm, dry, intact, normal color. Absent: rash Course Vital Signs 10/06/17 10/06/17 10/06/17 07:46 08:55 10:00 Temperature 97.9 F Pulse Rate 83 55 L 66 Respiratory 16 16 16 Rate Blood Pressure 143/68 114/56 116/56 O2 Sat by Pulse 100 100 100 Oximetry 10/06/17 11:00 Temperature Pulse Rate 89 Respiratory 16 Rate Blood Pressure 110/55 O2 Sat by Pulse 100 Oximetry - Reevaluation(s) Reevaluation #1: 10/06/17 11:40 In speaking with patient patient would like to be discharged home, she states she does not want stay in the hospital. Feeling better EKG Findings - EKG Comments: EKG Findings:: EKG shows normal sinus rhythm rate of 77, MD 120, QRS 90, QTc 486 Medical Decision Making - Medical Decision Making 57 female to ER for evaluation, patient's present for evaluation regarding the dizziness lightheadedness not feeling well. Patient admits to dehydration, nausea, vomiting. Patient is going to current chemotherapy. Patient states she feels good to go home. - Lab Data Result diagrams: 10/06/17 08:25 10/06/17 08:25 Lab Results 10/06/17 10/06/17 10/06/17 Range/Units 08:25 08:25 08:25 WBC 1.5 L* (3.8-10.6) k/uL RBC 2.84 L (3.80-5.40) m/uL Hgb 8.3 L (11.4-16.0) gm/dL Hct 24.7 L (34.0-46.0) % MCV 87.2 (80.0-100.0) fL MCH 29.3 (25.0-35.0) pg MCHC 33.6 (31.0-37.0) g/dL RDW 19.4 H (11.5-15.5) % Plt Count 46 L* (150-450) k/uL Neutrophils % (Manual) 72 % Lymphocytes % (Manual) 23 % Monocytes % (Manual) 4 % Basophils % (Manual) 1 % Neutrophils # (Manual) 1.08 L (1.3-7.7) k/uL Lymphocytes # (Manual) 0.35 L (1.0-4.8) k/uL Monocytes # (Manual) 0.06 (0-1.0) k/uL Basophils # (Manual) 0.02 (0-0.2) k/uL Nucleated RBCs 0 (0-0) /100 WBC Manual Slide Review Performed Poikilocytosis Slight Anisocytosis Slight PT (9.0-12.0) sec INR (<1.2) APTT (22.0-30.0) sec Sodium 138 (137-145) mmol/L Potassium 2.1 L* (3.5-5.1) mmol/L Chloride 102 (98-107) mmol/L Carbon Dioxide 28 (22-30) mmol/L Anion Gap 8 mmol/L BUN 26 H (7-17) mg/dL Creatinine 1.04 (0.52-1.04) mg/dL Est GFR (MDRD) Af Amer >60 (>60 ml/min/1.73 sqM) Est GFR (MDRD) Non-Af 54 (>60 ml/min/1.73 sqM) Glucose 114 H (74-99) mg/dL Plasma Lactic Acid Guille (0.7-2.0) mmol/L Calcium 6.9 L (8.4-10.2) mg/dL Phosphorus 1.7 L (2.5-4.5) mg/dL Magnesium 1.1 L (1.6-2.3) mg/dL Total Bilirubin 0.6 (0.2-1.3) mg/dL AST 28 (14-36) U/L ALT 57 H (9-52) U/L Alkaline Phosphatase 199 H (38-126) U/L Total Creatine Kinase 25 L (30-135) U/L CK-MB (CK-2) <0.2 (0.0-2.4) ng/mL CK-MB (CK-2) Rel Index Troponin I 0.038 H* (0.000-0.034) ng/mL Total Protein 5.2 L (6.3-8.2) g/dL Albumin 3.0 L (3.5-5.0) g/dL Influenza Type A RNA (Not Detectd) Influenza Type B (PCR) (Not Detectd) 10/06/17 10/06/17 10/06/17 Range/Units 08:25 08:25 08:53 WBC (3.8-10.6) k/uL RBC (3.80-5.40) m/uL Hgb (11.4-16.0) gm/dL Hct (34.0-46.0) % MCV (80.0-100.0) fL MCH (25.0-35.0) pg MCHC (31.0-37.0) g/dL RDW (11.5-15.5) % Plt Count (150-450) k/uL Neutrophils % (Manual) % Lymphocytes % (Manual) % Monocytes % (Manual) % Basophils % (Manual) % Neutrophils # (Manual) (1.3-7.7) k/uL Lymphocytes # (Manual) (1.0-4.8) k/uL Monocytes # (Manual) (0-1.0) k/uL Basophils # (Manual) (0-0.2) k/uL Nucleated RBCs (0-0) /100 WBC Manual Slide Review Poikilocytosis Anisocytosis PT 13.3 H (9.0-12.0) sec INR 1.4 H (<1.2) APTT 42.9 H (22.0-30.0) sec Sodium (137-145) mmol/L Potassium (3.5-5.1) mmol/L Chloride (98-107) mmol/L Carbon Dioxide (22-30) mmol/L Anion Gap mmol/L BUN (7-17) mg/dL Creatinine (0.52-1.04) mg/dL Est GFR (MDRD) Af Amer (>60 ml/min/1.73 sqM) Est GFR (MDRD) Non-Af (>60 ml/min/1.73 sqM) Glucose (74-99) mg/dL Plasma Lactic Acid Guille 1.2 (0.7-2.0) mmol/L Calcium (8.4-10.2) mg/dL Phosphorus (2.5-4.5) mg/dL Magnesium (1.6-2.3) mg/dL Total Bilirubin (0.2-1.3) mg/dL AST (14-36) U/L ALT (9-52) U/L Alkaline Phosphatase (38-126) U/L Total Creatine Kinase (30-135) U/L CK-MB (CK-2) (0.0-2.4) ng/mL CK-MB (CK-2) Rel Index Troponin I (0.000-0.034) ng/mL Total Protein (6.3-8.2) g/dL Albumin (3.5-5.0) g/dL Influenza Type A RNA Not Detected (Not Detectd) Influenza Type B (PCR) Not Detected (Not Detectd) Disposition Clinical Impression: Dehydration, Anorexia, Hypokalemia, Dizziness Disposition: HOME SELF-CARE Condition: Good Instructions: Dizziness (ED), Hypokalemia (ED) Referrals: Markell Ramirez DO [Primary Care Provider] - 1-2 days
--- NOTE | 2017-10-06 08:53 | XR ---
EXAMINATION TYPE: XR chest 2V DATE OF EXAM: 10/06/2017 COMPARISON: 07/30/2017 HISTORY: Weakness, dizziness, and history of breast cancer. TECHNIQUE: Frontal and lateral views of the chest are obtained. FINDINGS: There is no focal air space opacity, pleural effusion, or pneumothorax seen. Right-sided Mediport terminates in the superior vena cava. The cardiac silhouette size is within normal limits. The osseous structures are intact. Right acromioclavicular arthropathy is incidentally noted. Multil evel mild degenerative changes of the thoracic spine are seen. Rounded densities on the lateral image overlying the anterior cardiac borders are not seen on the frontal image and thought to be external to the patient. IMPRESSION: No acute cardiopulmonary process.
[2017-10-06 08:57] LABS: INR 1.4 (<1.2); Partial Thromboplastin Time 42.9 sec (22.0-30.0); Prothrombin Time 13.3 sec (9.0-12.0)
[2017-10-06 08:58] LABS: Anisocytosis Slight; HCT 24.7 % (34.0-46.0); HGB 8.3 gm/dL (11.4-16.0); MCH 29.3 pg (25.0-35.0); MCHC 33.6 g/dL (31.0-37.0); MCV 87.2 fL (80.0-100.0); Mean Platelet Volume 8.8; Poikilocytosis Slight; RBC 2.84 m/uL (3.80-5.40); RDW 19.4 % (11.5-15.5)
[2017-10-06 09:05] LABS: Blood Urea Nitrogen 26 mg/dL (7-17); Carbon Dioxide 28 mmol/L (22-30); Total Bilirubin 0.6 mg/dL (0.2-1.3); Total Protein 5.2 g/dL (6.3-8.2)
[2017-10-06 09:07] LABS: Platelet Count 46 k/uL (150-450)
[2017-10-06 09:08] LABS: WBC 1.5 k/uL (3.8-10.6)
[2017-10-06 09:14] LABS: Creatine Kinase 25 U/L (30-135)
[2017-10-06 09:22] LABS: ALT 57 U/L (9-52); AST 28 U/L (14-36); Alkaline Phosphatase 199 U/L (38-126); Anion Gap 8 mmol/L; Calcium 6.9 mg/dL (8.4-10.2); Chloride 102 mmol/L (98-107); Glucose 114 mg/dL (74-99); Magnesium 1.1 mg/dL (1.6-2.3); Phosphorus 1.7 mg/dL (2.5-4.5); Sodium 138 mmol/L (137-145)
[2017-10-06 09:27] LABS: Creatine Kinase MB <0.2 ng/mL (0.0-2.4)
[2017-10-06 09:28] LABS: Basophils # (M) 0.02 k/uL (0-0.2); Lymphocytes # (M) 0.35 k/uL (1.0-4.8); Monocytes # (M) 0.06 k/uL (0-1.0); Neutrophils # (M) 1.08 k/uL (1.3-7.7); Neutrophils % (M) 72 %; Nucleated Red Blood Cells 0 /100 WBC (0-0); Total Cells Counted 100
[2017-10-06 09:31] LABS: Potassium 2.1 mmol/L (3.5-5.1); Troponin I 0.038 ng/mL (0.000-0.034)
[2017-10-06] MEDS ORDERED: POTASSIUM CHLORIDE 40 MEQ in SODIUM CHLORIDE 0.9% 250 ML IVPB ONE (09:44)
[2017-10-06] MEDS ORDERED: POTASSIUM BICARB-CITRIC ACID 25 MEQ TABLET.EFF PO STA (09:44)
[2017-10-06 15:05] VITALS: BP 109/57; PULSE 80; TEMP 99
== END 2017-10-06 15:05 | disposition home or self-care (01) ==
LOC: EC 07:44
DX: E87.6 Hypokalemia (principal); E86.0 Dehydration; R63.0 Anorexia; J44.9 Chronic obstructive pulmonary disease, unspecified; E07.9 Disorder of thyroid, unspecified; Z79.01 Long term (current) use of anticoagulants; Z79.899 Other long term (current) drug therapy; Z88.8 Allergy status to other drugs, medicaments and biological substances; Z91.09 Other allergy status, other than to drugs and biological substances; Z85.3 Personal history of malignant neoplasm of breast; Z86.711 Personal history of pulmonary embolism; Z98.890 Other specified postprocedural states; Z86.73 Personal history of transient ischemic attack (TIA), and cerebral infarction without residual deficits; Z98.84 Bariatric surgery status
CPT/HCPCS: 99284; 96365; 96366 ×4; 96375 ×2; 96361 ×2; 36415; 93005; 80053; 82550; 82553; 83605; 83735; 84100; 84484; 85025; 85610; 85730; 87040; 87502; 71046; J2405; J3480; J1642

== ENCOUNTER 2017-10-09 10:01 | Inpatient (IN) | payer BC ==
[2017-10-09] MEDS ORDERED: PANTOPRAZOLE 40 MG/10 ML VIAL IVP STA (10:33)
[2017-10-09] MEDS ORDERED: SODIUM CHLORIDE 0.9% 500 ML IV STA (10:33)
[2017-10-09] MEDS ORDERED: ONDANSETRON 4 MG/2 ML VIAL IVP STA (10:33)
[2017-10-09] MEDS ORDERED: SODIUM CHLORIDE 0.9% 1,000 ML IV STA (10:33)
--- NOTE | 2017-10-09 11:41 | ED ---
General Adult HPI - General Chief complaint: Dizziness Stated complaint: DIZZINESS, CHEMO PATIENT Time Seen by Provider: 10/09/17 10:17 Source: patient, family, RN notes reviewed, old records reviewed Mode of arrival: wheelchair Limitations: physical limitation - History of Present Illness Initial comments: This is a 57-year-old female to the ER for evaluation. Patient presents today for evaluation regarding weakness. Patient is currently going through chemotherapy. Patient states she this has continued dizziness and weakness. Patient is here 3 days ago for the same. Patient states her appetite is continuing to be diminished and she is feeling worse - Related Data Home Medications Medication Instructions Recorded Confirmed Levothyroxine Sodium [Synthroid] 300 mcg PO QAM 01/16/16 10/09/17 Ergocalciferol (Vitamin D2) 50,000 unit PO CHAVEZ 08/27/16 10/09/17 [Vitamin D2] Thiamine [Vitamin B-1] 100 mg PO DAILY 08/27/16 10/09/17 Nystatin [Nystop] 1 applic TOPICAL BID PRN 06/04/17 10/09/17 Tiotropium 18 Mcg/Puff [Spiriva] 1 cap INHALATION RT-DAILY 06/04/17 10/09/17 oxyCODONE-APAP 5-325MG [Percocet 1 - 2 tab PO Q4-6H PRN 06/04/17 10/09/17 5-325 mg] NIFEdipine [NIFEdipine ER] 30 mg PO DAILY PRN 07/30/17 10/09/17 Torsemide [Demadex] 20 mg PO DAILY 07/30/17 10/09/17 Enoxaparin [Lovenox] 100 mg SQ Q12H 10/06/17 10/09/17 Magnesium Oxide [Mag-Ox] 400 mg PO BID 10/06/17 10/09/17 Potassium Chloride ER [K-Dur 20] 20 meq PO BID 10/06/17 10/09/17 Allergies Allergy/AdvReac Type Severity Reaction Status Date / Time adhesive Allergy Rash/Hives Verified 10/09/17 12:09 prochlorperazine Allergy Swelling Verified 10/09/17 12:09 [From Compazine] prochlorperazine edisylate Allergy Swelling Verified 10/09/17 12:09 [From Compazine] prochlorperazine maleate Allergy Swelling Verified 10/09/17 12:09 [From Compazine] ranitidine HCl [From Zantac] Allergy Swelling Verified 10/09/17 12:09 Review of Systems ROS Statement: Those systems with pertinent positive or pertinent negative responses have been documented in the HPI. ROS Other: All systems not noted in ROS Statement are negative. Past Medical History Past Medical History: Cancer, Chest Pain / Angina, COPD, Pulmonary Embolus (PE) , Sleep Apnea/CPAP/BIPAP, Thyroid Disorder Additional Past Medical History / Comment(s): NO CPAP. Hx: POST MENOPAUSAL BLEEDING. Weight loss of 100lb. bone cx and breast cancer History of Any Multi-Drug Resistant Organisms: None Reported Past Surgical History: Bariatric Surgery, Breast Surgery, Cholecystectomy, Hernia Repair, Hysterectomy, Tubal Ligation Additional Past Surgical History / Comment(s): Lap band, now removed. Stomach bypass. Left breast bx (NEG). Past Anesthesia/Blood Transfusion Reactions: No Reported Reaction Additional Past Anesthesia/Blood Transfusion Reaction / Comment(s): STATES MOTHER HAD DIFFICULTY WAKING UP. Past Psychological History: No Psychological Hx Reported Smoking Status: Never smoker - Past Family History Father Family Medical History: Cancer Additional Family Medical History / Comment(s): colon and esophagus cancer General Exam Limitations: physical limitation General appearance: alert, lethargic Head exam: Present: atraumatic, normocephalic, normal inspection Eye exam: Present: normal appearance, PERRL, EOMI. Absent: scleral icterus, conjunctival injection, periorbital swelling ENT exam: Present: normal exam, mucous membranes moist Neck exam: Present: normal inspection. Absent: tenderness, meningismus, lymphadenopathy Respiratory exam: Present: normal lung sounds bilaterally. Absent: respiratory distress, wheezes, rales, rhonchi, stridor Cardiovascular Exam: Present: regular rate, normal rhythm, normal heart sounds. Absent: systolic murmur, diastolic murmur, rubs, gallop, clicks GI/Abdominal exam: Present: soft, normal bowel sounds. Absent: distended, tenderness, guarding, rebound, rigid Extremities exam: Present: normal inspection, full ROM, normal capillary refill. Absent: tenderness, pedal edema, joint swelling, calf tenderness Back exam: Present: normal inspection Neurological exam: Present: alert, oriented X3, CN II-XII intact Psychiatric exam: Present: normal affect, normal mood Skin exam: Present: warm, dry, intact, normal color. Absent: rash Course Vital Signs 10/09/17 10:13 Temperature 98.5 F Pulse Rate 97 Respiratory 17 Rate Blood Pressure 133/77 O2 Sat by Pulse 100 Oximetry - Reevaluation(s) Reevaluation #1: 10/09/17 12:44 Patient has no significant improvement in symptoms Medical Decision Making - Medical Decision Making 57 female the ER with weakness dizziness lightheadedness, CT negative, patient is anemic we'll hold transfusion, patient has small multiple (abnormalities, we will admit for electrolyte replacement - Lab Data Result diagrams: 10/09/17 11:58 10/09/17 11:58 Lab Results 10/09/17 10/09/17 10/09/17 Range/Units 11:58 11:58 11:58 WBC 0.5 L* (3.8-10.6) k/uL RBC 2.91 L (3.80-5.40) m/uL Hgb 8.5 L (11.4-16.0) gm/dL Hct 24.6 L (34.0-46.0) % MCV 84.8 (80.0-100.0) fL MCH 29.1 (25.0-35.0) pg MCHC 34.3 (31.0-37.0) g/dL RDW 17.7 H (11.5-15.5) % PT 11.8 (9.0-12.0) sec INR 1.2 H (<1.2) APTT 31.2 H (22.0-30.0) sec Sodium 139 (137-145) mmol/L Potassium 2.5 L* (3.5-5.1) mmol/L Chloride 99 (98-107) mmol/L Carbon Dioxide 32 H (22-30) mmol/L Anion Gap 8 mmol/L BUN 22 H (7-17) mg/dL Creatinine 0.98 (0.52-1.04) mg/dL Est GFR (MDRD) Af Amer >60 (>60 ml/min/1.73 sqM) Est GFR (MDRD) Non-Af 58 (>60 ml/min/1.73 sqM) Glucose 101 H (74-99) mg/dL Calcium 6.8 L (8.4-10.2) mg/dL Magnesium 1.0 L* (1.6-2.3) mg/dL Total Bilirubin 0.6 (0.2-1.3) mg/dL AST 33 (14-36) U/L ALT 65 H (9-52) U/L Alkaline Phosphatase 203 H (38-126) U/L Total Protein 5.6 L (6.3-8.2) g/dL Albumin 3.1 L (3.5-5.0) g/dL Influenza Type A RNA (Not Detectd) Influenza Type B (PCR) (Not Detectd) 10/09/17 Range/Units 11:58 WBC (3.8-10.6) k/uL RBC (3.80-5.40) m/uL Hgb (11.4-16.0) gm/dL Hct (34.0-46.0) % MCV (80.0-100.0) fL MCH (25.0-35.0) pg MCHC (31.0-37.0) g/dL RDW (11.5-15.5) % PT (9.0-12.0) sec INR (<1.2) APTT (22.0-30.0) sec Sodium (137-145) mmol/L Potassium (3.5-5.1) mmol/L Chloride (98-107) mmol/L Carbon Dioxide (22-30) mmol/L Anion Gap mmol/L BUN (7-17) mg/dL Creatinine (0.52-1.04) mg/dL Est GFR (MDRD) Af Amer (>60 ml/min/1.73 sqM) Est GFR (MDRD) Non-Af (>60 ml/min/1.73 sqM) Glucose (74-99) mg/dL Calcium (8.4-10.2) mg/dL Magnesium (1.6-2.3) mg/dL Total Bilirubin (0.2-1.3) mg/dL AST (14-36) U/L ALT (9-52) U/L Alkaline Phosphatase (38-126) U/L Total Protein (6.3-8.2) g/dL Albumin (3.5-5.0) g/dL Influenza Type A RNA Not Detected (Not Detectd) Influenza Type B (PCR) Not Detected (Not Detectd) - Radiology Data Radiology results: report reviewed (CT brain chest x-ray negative), image reviewed Disposition Clinical Impression: Dehydration, Anorexia, Hypokalemia, Dizziness, Hypomagnesemia Disposition: ADMITTED IP TO THIS [facility] Condition: Fair Referrals: Markell Ramirez DO [Primary Care Provider] - 1-2 days
--- NOTE | 2017-10-09 11:45 | CT ---
EXAMINATION TYPE: CT brain wo con DATE OF EXAM: 10/09/2017 COMPARISON: NONE HISTORY: Dizziness CT DLP: 1072.3 mGycm Automated exposure control for dose reduction was used. FINDINGS: Central structures are midline. There is no evidence of hydrocephalus. No acute focal lesion, mass ef fect or midline shift is seen. I do not see evidence of intracranial blood. The orbits appear normal. Visualized portions of the paranasal sinuses and mastoids are clear. Middle and inner ear structures appear normal. I do not see evidence of a CP angle mass lesion. IMPRESSION: NO ACUTE INTRACRANIAL ABNORMALITY.
--- NOTE | 2017-10-09 11:46 | XR ---
EXAMINATION TYPE: XR chest 2V DATE OF EXAM: 10/09/2017 HISTORY: Pain. REFERENCE: Previous study dated 10/06/2017. FINDINGS: There is a MediPort in place on the right. The lungs are clear. Pleural space are clear. The heart is not enlarged. IMPRESSION: NO ACTIVE INTRATHORACIC DISEASE.
[2017-10-09 12:26] LABS: Anisocytosis Slight; HCT 24.6 % (34.0-46.0); HGB 8.5 gm/dL (11.4-16.0); MCH 29.1 pg (25.0-35.0); MCHC 34.3 g/dL (31.0-37.0); MCV 84.8 fL (80.0-100.0); Mean Platelet Volume 8.1; Poikilocytosis Moderate; RBC 2.91 m/uL (3.80-5.40); RDW 17.7 % (11.5-15.5)
[2017-10-09 12:29] LABS: WBC 0.5 k/uL (3.8-10.6)
[2017-10-09 12:35] LABS: ALT 65 U/L (9-52); AST 33 U/L (14-36); Albumin 3.1 g/dL (3.5-5.0); Alkaline Phosphatase 203 U/L (38-126); Anion Gap 8 mmol/L; Blood Urea Nitrogen 22 mg/dL (7-17); Calcium 6.8 mg/dL (8.4-10.2); Carbon Dioxide 32 mmol/L (22-30); Chloride 99 mmol/L (98-107); Glucose 101 mg/dL (74-99); Sodium 139 mmol/L (137-145); Total Bilirubin 0.6 mg/dL (0.2-1.3); Total Protein 5.6 g/dL (6.3-8.2)
[2017-10-09 12:38] LABS: Potassium 2.5 mmol/L (3.5-5.1)
[2017-10-09] MEDS ORDERED: POTASSIUM BICARB-CITRIC ACID 25 MEQ TABLET.EFF PO STA (12:38)
[2017-10-09 12:39] LABS: INR 1.2 (<1.2); Partial Thromboplastin Time 31.2 sec (22.0-30.0); Prothrombin Time 11.8 sec (9.0-12.0)
[2017-10-09] MEDS ORDERED: MAGNESIUM OXIDE 400 MG TAB PO STA (12:39)
[2017-10-09 12:49] LABS: Creatine Kinase 24 U/L (30-135)
[2017-10-09 13:02] LABS: Creatine Kinase MB <0.2 ng/mL (0.0-2.4); Troponin I 0.033 ng/mL (0.000-0.034)
[2017-10-09 13:05] LABS: Platelet Count 7 k/uL (150-450)
[2017-10-09] MEDS: MAGNESIUM SULFATE-D5W PMX 1 GM in DEXTROSE/WATER 1 100ML.BAG IVPB SCH ×3 (13:10→21:24)
[2017-10-09] MEDS: POTASSIUM CHLORIDE 20 MEQ in SODIUM CHLORIDE 0.9% 100 ML IVPB SCH ×2 (15:06→18:26)
[2017-10-09] MEDS ORDERED: NIFEdipine XL 30 MG TAB.ER.24 PO PRN (21:14)
[2017-10-09] MEDS ORDERED: NYSTATIN 100,000 UNIT/GM POWD 15 GM TOPICAL PRN (21:14)
[2017-10-10] MEDS: 0.9% NACL WITH KCL 40 MEQ/L 1,000 ML IV SCH ×3 (01:20→21:31)
[2017-10-10 02:38] LABS: Anion Gap 6 mmol/L; Blood Urea Nitrogen 19 mg/dL (7-17); Calcium 6.8 mg/dL (8.4-10.2); Carbon Dioxide 29 mmol/L (22-30); Chloride 105 mmol/L (98-107); Glucose 104 mg/dL (74-99); Sodium 140 mmol/L (137-145)
[2017-10-10 02:40] LABS: Potassium 2.9 mmol/L (3.5-5.1)
[2017-10-10 02:41] LABS: Anisocytosis Slight; MCH 29.1 pg (25.0-35.0); MCHC 33.3 g/dL (31.0-37.0); MCV 87.3 fL (80.0-100.0); Mean Platelet Volume 8.6; Poikilocytosis Moderate; RDW 16.7 % (11.5-15.5)
[2017-10-10 02:42] LABS: HCT 19.2 % (34.0-46.0); HGB 6.4 gm/dL (11.4-16.0); WBC 0.4 k/uL (3.8-10.6)
[2017-10-10 02:43] LABS: Platelet Count 5 k/uL (150-450)
[2017-10-10 03:25] LABS: Appearance,Urine Cloudy (Clear); Bacteria,Urine Few /hpf; Bilirubin,Urine Negative (Negative); Blood,Urine Negative (Negative); Color,Urine Yellow; Glucose,Urine (UA) Negative (Negative); Ketones,Urine Negative (Negative); Leukocyte Esterase,Urine Large (Negative); Mucus,Urine Rare /hpf; Nitrite,Urine Positive (Negative); Protein,Urine 1+ (Negative); RBC,Urine 5 /hpf (0-5); Specific Gravity,Urine 1.012 (1.001-1.035); Squamous Epithelial Cell,Urine 2 /hpf (0-4); Urobilinogen,Urine <2.0 mg/dL (<2.0); WBC,Urine 171 /hpf (0-5)
[2017-10-10] MEDS: MAGNESIUM SULFATE-D5W PMX 1 GM in DEXTROSE/WATER 1 100ML.BAG IVPB SCH (05:41)
[2017-10-10] MEDS ORDERED: Potassium Replacement Protocol 1 EACH MISC MISCELLANE PRN (07:15)
[2017-10-10] MEDS: POTASSIUM CHLORIDE ER 20 MEQ TAB.ER PO SCH ×5 (07:50→21:31)
[2017-10-10 08:44] LABS: Anisocytosis Slight; Hypochromasia Slight; MCH 28.4 pg (25.0-35.0); MCHC 32.1 g/dL (31.0-37.0); MCV 88.6 fL (80.0-100.0); Mean Platelet Volume 8.8; Poikilocytosis Slight; RBC 2.21 m/uL (3.80-5.40); RDW 18.1 % (11.5-15.5)
[2017-10-10 08:45] LABS: WBC 0.3 k/uL (3.8-10.6)
[2017-10-10] MEDS: THIAMINE 100 MG TAB PO SCH (08:45)
[2017-10-10] MEDS: IPRATROPIUM 0.5 MG/2.5 ML NEBU INHALATION SCH ×4 (08:45→21:03)
[2017-10-10] MEDS: LEVOTHYROXINE 100 MCG TAB PO SCH (08:45)
[2017-10-10] MEDS: MAGNESIUM OXIDE 400 MG TAB PO SCH ×2 (08:45→21:31)
[2017-10-10] MEDS: TORSEMIDE 20 MG TAB PO SCH (08:45)
[2017-10-10 08:47] LABS: HGB 6.3 gm/dL (11.4-16.0)
[2017-10-10 08:48] LABS: HCT 19.6 % (34.0-46.0)
[2017-10-10 08:49] LABS: Platelet Count 8 k/uL (150-450)
[2017-10-10] MEDS ORDERED: ERGOCALCIFEROL 50,000 UNIT CAP PO SCH (09:00)
[2017-10-10] MEDS ORDERED: cefTRIAXone IN SWFI 1,000 MG/10 ML SYRINGE IVP SCH (09:00)
[2017-10-10 09:03] LABS: Anion Gap 6 mmol/L; Blood Urea Nitrogen 19 mg/dL (7-17); Calcium 7.2 mg/dL (8.4-10.2); Carbon Dioxide 27 mmol/L (22-30); Chloride 107 mmol/L (98-107); Glucose 143 mg/dL (74-99); Magnesium 1.7 mg/dL (1.6-2.3); Potassium 3.3 mmol/L (3.5-5.1); Sodium 140 mmol/L (137-145)
[2017-10-10 09:15] LABS: ALT 54 U/L (9-52); AST 23 U/L (14-36); Albumin 2.6 g/dL (3.5-5.0); Alkaline Phosphatase 176 U/L (38-126); Total Bilirubin 0.6 mg/dL (0.2-1.3); Total Protein 4.7 g/dL (6.3-8.2)
--- NOTE | 2017-10-10 09:56 | HP ---
HISTORY AND PHYSICAL DATE OF SERVICE: 10/10/2017 CHIEF COMPLAINT: Dizziness. HISTORY OF PRESENT ILLNESS: This is a 57-year-old woman with a past medical history of extensive history including breast cancer with mets, history of COPD, hypertension, history of pulmonary embolism, history of DVT of the right leg, history of bariatric surgery being followed by Dr. Markell Ramirez in the outpatient setting, also followed by Dr. Ryder in [facility]. The patient had the last chemotherapy between and 11 of cisplatin and also infused. Currently patient complaining of tiredness and weak and dizzy and the patient presented to [facility] for further evaluation and treatment. The patient had multiple electrolyte abnormalities including potassium 2.5 and magnesium 1 and patient admitted for further evaluation and treatment. Patient also has severe pancytopenia with platelets 7, WBC 5 also. Influenza negative. There is no history of any fever, rigors, chills. No history of headache, loss of consciousness, seizures. PAST MEDICAL HISTORY: History of breast cancer with metastasis, history of COPD, hypertension, pulmonary embolism, DVT, bariatric surgery. MEDICATIONS: Prior to admission include home medications are: 1. K-Dur 20 mg p.o. b.i.d. 2. one application b.i.d. p.r.n. 3. Nifedipine ER 30 mg daily. 4. Magnesium oxide 400 mg b.i.d. 5. Percocet 1-2 tablets q.4 to 6 p.r.n. 6. Demadex 20 mg p.o. daily. 7. Spiriva 1 puff daily. 8. Vitamin B1 100 mg daily. 9. Synthroid 300 mcg p.o. q.a.m. 10.Vitamin D2 50,000 p.o. Sundays. 11.Lovenox 100 mg subcu b.i.d. ALLERGIES: ADHESIVE, COMPAZINE AND ZANTAC. FAMILY HISTORY: History of cancer, colon cancer, esophageal cancer in the family. SOCIAL HISTORY: No history of smoking. No alcohol intake. REVIEW OF SYSTEMS: ENT: No diminished hearing or vision. CARDIOVASCULAR: No angina. RESPIRATORY: As mentioned earlier. GI: No nausea. : No dysuria. NERVOUS SYSTEM: As mentioned earlier. ALLERGY/IMMUNOLOGY: No asthma. MUSCULOSKELETAL: As mentioned earlier. HEMATOLOGY: As mentioned. ENDOCRINE: As mentioned earlier. Hypothyroidism. CONSTITUTIONAL: As mentioned earlier. DERMATOLOGY: Negative. RHEUMATOLOGY: Negative. PSYCHIATRIC: As mentioned earlier. PHYSICAL EXAM: Patient is alert, oriented x3. Pulse 90, blood pressure 102/55, respiration 18, temperature 98.8, pulse ox 98% room air. HEENT: Conjunctivae normal. Oral mucosa is dry. Neck is no jugular venous distention. No carotid bruit. No lymph node enlargement. CARDIOVASCULAR: S1, S2 muffled. No S3, no S4. RESPIRATORY: Breath sounds diminished in the bases. A few scattered rhonchi. No crackles. ABDOMEN: Soft, nontender. No mass palpable. LEGS: No edema. No swelling. NERVOUS SYSTEM: Higher functions as mentioned earlier, moves all 4 limbs, no focal motor deficits. LYMPHATICS: No lymphadenopathy in the neck, axillae, groin. SKIN: No ulcer, rash or bleeding. LABS: WBC 0.5, hemoglobin 8.5, platelets 7, sodium 139, potassium 2.5, magnesium is 1. ASSESSMENT: 1. Dizziness and weakness, severe electrode abnormalities. 2. Severe hypokalemia. 3. Severe hypocalcemia. 4. Status post recent chemotherapy of breast cancer with metastasis. 5. Pancytopenia secondary to chemotherapy. 6. Anemia. 7. Thrombocytopenia. 8. Leukopenia. 9. Increased ALT and alkaline phosphatase. 10.History of chest pain, angina. 11.History of chronic obstructive pulmonary disease. 12.Hypertension. 13.History of pulmonary embolism. 14.History of DVT of the right leg. 15.History of CPAP, sleep apnea. 16.History of bariatric surgery. 17.History of cholecystectomy. RECOMMENDATION AND DISCUSSION: In this 57-year-old woman who presented with multiple complex medical issues, we will monitor the patient closely, continue the current management and symptomatic treatment. I would recommend replace magnesium and potassium, repeat lytes and replace according to protocol. Otherwise DVT prophylaxis and resume the rest of medication. Hold Lovenox at this time. Closely follow with Hematology/Oncology and also we will also get the opinion from the patient's own oncologist as well. Otherwise continue to monitor. Guarded prognosis because of multiple complex medical issues. Further recommendations to follow. MMODL / IJN: [id number] / MTDD
[2017-10-10] MEDS: CEFEPIME 2 GM in SODIUM CHLORIDE 0.9% 50 ML IVPB SCH (16:36)
[2017-10-10 17:09] LABS: Anion Gap 6 mmol/L; Blood Urea Nitrogen 19 mg/dL (7-17); Calcium 7.8 mg/dL (8.4-10.2); Carbon Dioxide 28 mmol/L (22-30); Chloride 106 mmol/L (98-107); Glucose 88 mg/dL (74-99); Potassium 3.4 mmol/L (3.5-5.1); Sodium 140 mmol/L (137-145)
--- NOTE | 2017-10-10 17:22 | PN ---
PROGRESS NOTE REASON FOR CONSULTATION: Breast cancer. CHIEF COMPLAINT: Weakness and tiredness. Karissa is a very pleasant 57 years old lady who was initially diagnosed with right breast carcinoma in late May 2016. 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 The patient subsequently had a mastectomy and sentinel node biopsies. There was no residual tumor found in the breast and 1 sentinel node was positive for micrometastatic disease. Another 1 sentinel node and 6 additional axillary nodes were negative for metastatic disease. The patient went to at that time [facility] and recommended adjuvant TC, which she received through Dr. Fiore and was she had completed a total of 4 cycles in January 2017. In April of 2017, she started to have some right knee pain which has gotten progressively worse. She was found to have on further workup and evaluation revealed a lytic lesion in the right femur. She did have a PET scan on 06/05/2017, which revealed hypermetabolic uptake around the right knee. The patient was subsequently transferred care to [facility] in [place] and she was started on systemic treatment with a combination of cisplatin and doxorubicin, and she had a total of 4 cycles. The patient came into the hospital because of feeling tired and weak and dizzy and she presented to the emergency department for further evaluation. She was found to be severely hypokalemic and hypomagnesemic and dehydrated and also she had significant pancytopenia. The patient denied any fever, chills. No cough. No dysphagia. She always has loose stool and diarrhea from a previous gastric bypass surgery, which has not gotten any worse. She denies any numbness or tingling and no sores in her mouth. No melena, hematochezia, hematuria, hemoptysis, hematemesis or epistaxis. PAST MEDICAL HISTORY: In addition to what is stated above in regard to her metastatic breast carcinoma. She has a history of COPD, history of pulmonary embolus and DVT and a bariatric surgery. FAMILY HISTORY: Her father had colon cancer at age 60 and esophageal cancer at age 66. Her paternal aunt had breast cancer and ovarian cancer in her 60s. SOCIAL HISTORY: No history of smoking, alcohol abuse or substance abuse. ALLERGIES: ALLERGY TO COMPAZINE, TAPE, AND ZANTAC. CURRENT MEDICATION: Include cefepime 2 g IV piggyback q.8 hours, vitamin D2 50,000 unit weekly, Atrovent inhaler, Synthroid 300 mcg daily, magnesium oxide 400 mg b.i.d., potassium replacement per protocol. Procardia XL 30 mg daily, oxycodone, Percocet 5/325, 1 every 6 hours as needed. K-Dur 20 mEq b.i.d. and she is on IV potassium supplement, thiamine 100 mg p.o. daily, and Demadex 20 mg daily. REVIEW OF SYSTEMS: As stated above in the history of present illness. PHYSICAL EXAMINATION: She is alert, oriented x3. She does not appear to be in acute distress at this point in time. Her vital signs are temperature 97.5 afebrile, pulse is 90, respiration 18, blood pressure 135/67. HEENT: Normocephalic, atraumatic. The oral mucosa are intact. NECK: Supple. CHEST: Coarse breath sounds bilaterally. Lungs are clear to auscultation and percussion. Heart is regular rhythm. ABDOMEN: Soft. No tenderness. No organomegaly or masses. EXTREMITIES: No edema. Skin few bruises. No ecchymosis or petechiae. LYMPHATICS: No peripheral cervical, supraclavicular lymph node. Right mastectomy noted. MUSCULOSKELETAL: Moving all extremities appropriately. No percussion tenderness detected over her spine or her sternum. RECENT LABORATORY DATA: WBC 0.3, hemoglobin 6.3, hematocrit 19.6, platelets are 8. Sodium 140, potassium 3.3, chloride is 107, CO2 is 27, BUN is 19, creatinine 0.84. IMPRESSION: 1. Metastatic triple negative breast carcinoma as stated above. 2. Chemotherapy-induced myelosuppression, although she is severely neutropenic, but there is no clinical evidence of infection at this point in time, and she has been afebrile. 3. Significant hypokalemia and hypomagnesemia, likely related to cisplatin therapy. 4. Dehydration. RECOMMENDATION: 1. IV hydration. 2. Replace electrolytes. 3. Monitor CBC closely and supportive transfusion as needed. 4. May continue broad-spectrum IV antibiotic at this point in time. 5. Consider adding colony-stimulating factor. 6. Given her significant thrombocytopenia may hold anticoagulation. She was on Lovenox at home for her history of DVT and PE, but this needs to be held for the time being given her significant thrombocytopenia. The above was discussed in detail with the patient. I have answered all questions to her satisfaction. Thank you very much for asking me to participate in the care of this nice lady. GUSTAVO / MADELYN: [id number] /
[2017-10-10 18:02] LABS: Anisocytosis Slight; HCT 20.5 % (34.0-46.0); HGB 7.2 gm/dL (11.4-16.0); MCH 30.1 pg (25.0-35.0); Mean Platelet Volume 10.6; Poikilocytosis Slight; RBC 2.38 m/uL (3.80-5.40); RDW 17.1 % (11.5-15.5)
[2017-10-10 18:58] LABS: Platelet Count 27 k/uL (150-450); WBC 0.4 k/uL (3.8-10.6)
--- NOTE | 2017-10-10 19:44 | PN ---
PROGRESS NOTE DATE OF SERVICE: 10/10/2017. INTERVAL HISTORY: This 57-year-old woman who was admitted with dizziness, weakness, multiple electrolytes abnormalities. Patient had CA of the breast on chemotherapy. Patient also had pancytopenia. Patient had UTI. Broad-spectrum IV antibiotics initiated. Dr. Segovia is following the patient closely. Dehydration also noted on admission. PAST MEDICAL HISTORY: Reviewed. REVIEW OF SYSTEMS: Cardio system: No angina or palpitations. Respiratory: As mentioned earlier. GI no nausea or vomiting. : No dysuria. Nervous system: Generalized weakness. CURRENT MEDICATIONS: Reviewed and include: 1. Cefepime 2 g IV q.8h. 2. Vitamin D2. 3. Atrovent q.i.d. 4. Synthroid 300 mcg. 5. Magnesium oxide 400 mg b.i.d. 6. replacement protocols. 7. Procardia XL 30 mg. 8. Mycostatin. 9. Percocet 5 mg q.6h p.r.n. 10.K-Dur 20 mEq p.o. b.i.d. 11.Vitamin B1 100 mg p.o. 12.Demadex 20 mg p.o. daily. PHYSICAL EXAMINATION: Awake, alert and oriented x 3. Pulse 91, blood pressure 130/60, respiration 18, temperature 97.4, pulse ox 100% on room air. HEENT: Conjunctivae normal. Oral mucosa moist. Neck is no jugular venous distention. No carotid bruit. No lymph node enlargement. Cardiovascular systems: S1, S2 muffled. Respirations: Breath sounds diminished in the bases. A few scattered rhonchi and crackles. ABDOMEN: Soft, nontender. No mass palpable. Legs: No edema. No swelling. Central nervous system: Higher functions as mentioned earlier. Moves all four extremities. No focal deficits. Lymphatics: No lymph nodes palpable in the neck, axillae or groin. Skin: No ulcer, rashes or bleeding. LABS: WBC 0.8, hemoglobin ntd, and platelets 8. Sodium 140, potassium 3.3, and albumin is 2.6. UA noted. ASSESSMENT: 1. Dizziness and weakness, severe electrolytes abnormality. 2. Severe hypokalemia. 3. Severe hypomagnesemia. 4. Severe pancytopenia. 5. Leukopenia, neutropenia and thrombocytopenia. 6. History of recent chemotherapy with breast cancer with metastasis. 7. Anemia. 8. Increased ALT, alkaline phosphatase. 9. History of chest pain, angina. 10.History of chronic obstructive pulmonary disease. 11.Hypertension. 12.History of pulmonary embolus. 13.History of deep vein thrombosis of the right leg. 14.History of CPAP sleep apnea. 15.History of bariatric surgery. 16.History of cholecystectomy. RECOMMENDATIONS AND DISCUSSION: Recommend to continue current medications, symptomatic treatment, continue with monitoring, management and treatment with replacement and supplemental lytes. Repeat lytes, potassium supplementation. Otherwise the electrolytes imbalance could be an effect of cisplatin otherwise dehydration will be corrected with IV fluids. Because of recurrent infection, I would recommend Cefepime. Obtain cultures. Closely monitor. Follow closely with Dr. Segovia. Continue the rest of the medications. DVT prophylaxis. Transfusions and platelet transfusions also. Prognosis guarded because of multiple complex medical issues as detailed above. Further recommendations to follow. MMODL / IJN: [id number] / MTDD
[2017-10-10] MEDS: oxyCODONE-APAP 5-325MG 1 EACH TAB PO PRN (21:31)
[2017-10-11] MEDS: CEFEPIME 2 GM in SODIUM CHLORIDE 0.9% 50 ML IVPB SCH ×3 (00:24→16:08)
[2017-10-11] MEDS: 0.9% NACL WITH KCL 40 MEQ/L 1,000 ML IV SCH (05:19)
[2017-10-11 06:53] LABS: Albumin 2.6 g/dL (3.5-5.0); Anion Gap 4 mmol/L; Calcium 7.9 mg/dL (8.4-10.2); Carbon Dioxide 26 mmol/L (22-30); Chloride 111 mmol/L (98-107); Glucose 92 mg/dL (74-99); Sodium 141 mmol/L (137-145); Total Bilirubin 0.5 mg/dL (0.2-1.3); Total Protein 4.9 g/dL (6.3-8.2)
[2017-10-11 06:55] LABS: ALT 47 U/L (9-52); AST 22 U/L (14-36); Blood Urea Nitrogen 17 mg/dL (7-17); Potassium 4.2 mmol/L (3.5-5.1)
[2017-10-11 06:56] LABS: Alkaline Phosphatase 149 U/L (38-126); Anisocytosis Slight; HCT 20.2 % (34.0-46.0); Hypochromasia Slight; MCH 29.9 pg (25.0-35.0); MCHC 34.7 g/dL (31.0-37.0); MCV 86.3 fL (80.0-100.0); Magnesium 1.4 mg/dL (1.6-2.3); Mean Platelet Volume 10.5; Poikilocytosis Slight; RBC 2.34 m/uL (3.80-5.40); RDW 17.2 % (11.5-15.5)
[2017-10-11 06:57] LABS: Platelet Count 22 k/uL (150-450)
[2017-10-11] MEDS: IPRATROPIUM 0.5 MG/2.5 ML NEBU INHALATION SCH ×4 (07:34→20:54)
[2017-10-11 08:06] LABS: WBC 0.5 k/uL (3.8-10.6)
[2017-10-11] MEDS: TORSEMIDE 20 MG TAB PO SCH (09:29)
[2017-10-11] MEDS: THIAMINE 100 MG TAB PO SCH (09:29)
[2017-10-11] MEDS: LEVOTHYROXINE 100 MCG TAB PO SCH (09:29)
[2017-10-11] MEDS: MAGNESIUM OXIDE 400 MG TAB PO SCH ×3 (09:29→21:49)
[2017-10-11] MEDS: POTASSIUM CHLORIDE ER 20 MEQ TAB.ER PO SCH ×2 (09:30→22:06)
[2017-10-11] MEDS ORDERED: FUROSEMIDE 10 MG/ML 4 ML VIAL IV STA (11:50)
[2017-10-11] MEDS: FILGRASTIM-SNDZ 480 MCG/0.8 ML SYRINGE SQ SCH (12:10)
[2017-10-11] MEDS ORDERED: IPRATROPIUM 0.5 MG/2.5 ML NEBU INHALATION PRN (12:21)
--- NOTE | 2017-10-11 12:24 | XR ---
EXAMINATION TYPE: XR chest 1V portable DATE OF EXAM: 10/11/2017 HISTORY: Shortness of breath. COMPARISON: 10/09/2017 TECHNIQUE: Single view of the chest is submitted. FINDINGS: Demonstrated are scattered senescent parenchymal change. There is no evidence for focal infiltrate. Small nodular densities are seen within the upper lobes bi laterally The heart is stable. Hilar and mediastinal structures are within normal limits. Degenerative changes are seen of the dorsal spine. IMPRESSION: 1. Chronic changes without evidence for acute pulmonary disease. Bilateral pulmonary nodules.
[2017-10-11] MEDS: FORMOTEROL FUMARATE 20 MCG/2 ML NEBU INHALATION SCH ×2 (12:37→20:54)
[2017-10-11] MEDS: BUDESONIDE 1 MG/2 ML NEBU INHALATION SCH ×2 (12:37→20:53)
[2017-10-11 17:11] LABS: Anisocytosis Slight; HCT 23.4 % (34.0-46.0); HGB 7.9 gm/dL (11.4-16.0); MCHC 33.6 g/dL (31.0-37.0); MCV 86.3 fL (80.0-100.0); Mean Platelet Volume 12.5; Poikilocytosis Moderate; RBC 2.72 m/uL (3.80-5.40); RDW 16.3 % (11.5-15.5)
[2017-10-11 17:12] LABS: WBC 0.5 k/uL (3.8-10.6)
[2017-10-11 17:13] LABS: Platelet Count 22 k/uL (150-450)
--- NOTE | 2017-10-11 18:33 | PN ---
PROGRESS NOTE . DATE OF SERVICE: 10/11/2017 This 57-year-old woman is admitted with dizziness, weakness, severe electrolyte abnormalities and had severe hypomagnesemia and hypokalemia. Patient also had a UTI. The cultures are negative so far. Patient on empiric antibiotics. Patient also thrombocytopenia, pancytopenia which is also being replaced. Hematology and oncology following the patient closely. No chest pain. No palpitations. No fever. EXAM: Alert and oriented times three. Pulse 113, blood pressure 130/79, respiration 24, temperature 98.5, pulse ox 100% on room air. HEENT conjunctivae pale. Neck: No jugular venous distention. Cardiovascular: S1, S2 muffled. Respirations: Breath sounds diminished at the bases. A few scattered rhonchi. No crackles. Abdomen is soft, nontender. Legs are no edema. No swelling. Nervous system: No focal deficits. LABS: WBC 0.5, hemoglobin 11.9, platelets 22. Other labs are magnesium is 1.4, albumin is 2.6. ASSESSMENT: 1. Dizziness and weakness, severe electrolytes abnormality. 2. Severe hypokalemia. 3. Severe hypomagnesemia. 4. Severe pancytopenia. 5. Leukopenia, neutropenia, thrombocytopenia. 6. History of recent chemotherapy with breast cancer with metastasis. 7. Anemia. 8. Increased ALT, alkaline phosphatase. 9. History of chest pain/angina. 10.History of chronic obstructive pulmonary disease. 11.History of hypertension. 12.History of pulmonary embolism. 13.History of deep vein thrombosis of the right leg. 14.History of CPAP sleep apnea. 15.History of bariatric surgery. 16.History of cholecystectomy. RECOMMENDATIONS AND DISCUSSION: Recommend to continue current medications, continue with monitoring, symptomatic treatment. Otherwise, at this time, I recommend continued checking off lytes and replacement and continue with empiric antibiotics. Closely follow with Hematology/Oncology. Guarded prognosis because of multiple complex medical issues and further recommendations to follow. See orders for details. Discussed with the patient. Patient understands and agrees. MMODL / IJN: [id number] /
[2017-10-11] MEDS: oxyCODONE-APAP 5-325MG 1 EACH TAB PO PRN (21:49)
--- NOTE | 2017-10-11 22:13 | P.PN ---
Subjective Progress Note Date: 10/11/17 The pt does feel somewhat stronger, but is still quite weak. No f/c/orl ulcers/ diarrhea/falls/cough Objective - Vital Signs Vital signs: Vital Signs Temp 98.2 F 10/11/17 19:47 Pulse 108 H 10/11/17 21:12 Resp 18 10/11/17 19:47 BP 127/62 10/11/17 19:47 Pulse Ox 99 10/11/17 19:47 Intake & Output 10/11/17 10/11/17 10/12/17 06:59 18:59 06:59 Intake Total 90 1320 Output Total 1200 3200 Balance -1110 -1880 Weight 94.3 kg 94.3 kg Intake: Intake, IV Titration 600 Amount 0.9% NaCl with KCl 40 Meq 500 /l 1,000 ml @ 100 mls/hr IV .Q10H [facility] Rx#: [id number] Cefepime 2 gm In Sodium 100 Chloride 0.9% 50 ml @ 100 mls/hr IVPB Q8HR [facility] Rx# :[id number] Oral 90 720 Output: Urine 1200 3200 Other: Voiding Method Toilet # Voids 1 - Constitutional General appearance: Present: no acute distress - EENT Eyes: Present: EOMI, PERRLA ENT: Present: hearing grossly normal, pharyngeal erythema - Respiratory Respiratory: bilateral: CTA - Cardiovascular Rhythm: regular Heart sounds: normal: S1, S2 - Gastrointestinal General gastrointestinal: Present: normal bowel sounds, soft - Integumentary Integumentary: Present: normal - Neurologic Neurologic: Present: CNII-XII intact - Musculoskeletal Musculoskeletal: Present: generalized weakness, strength equal bilaterally - Psychiatric Psychiatric: Present: A&O x's 3, appropriate affect - Labs CBC & Chem 7: 10/11/17 16:52 10/11/17 06:26 Labs: Abnormal Lab Results - Last 24 Hours (Table) 10/11/17 10/11/17 10/11/17 Range/Units 06:26 06:26 16:52 WBC 0.5 L* 0.5 L* (3.8-10.6) k/uL RBC 2.34 L 2.72 L (3.80-5.40) m/uL Hgb 7.0 L* 7.9 L (11.4-16.0) gm/dL Hct 20.2 L 23.4 L (34.0-46.0) % RDW 17.2 H 16.3 H (11.5-15.5) % Plt Count 22 L* 22 L* (150-450) k/uL Chloride 111 H (98-107) mmol/L Calcium 7.9 L (8.4-10.2) mg/dL Magnesium 1.4 L (1.6-2.3) mg/dL Alkaline Phosphatase 149 H (38-126) U/L Total Protein 4.9 L (6.3-8.2) g/dL Albumin 2.6 L (3.5-5.0) g/dL 10/11/17 Range/Units 19:00 WBC (3.8-10.6) k/uL RBC (3.80-5.40) m/uL Hgb (11.4-16.0) gm/dL Hct (34.0-46.0) % RDW (11.5-15.5) % Plt Count (150-450) k/uL Chloride (98-107) mmol/L Calcium (8.4-10.2) mg/dL Magnesium 1.2 L (1.6-2.3) mg/dL Alkaline Phosphatase (38-126) U/L Total Protein (6.3-8.2) g/dL Albumin (3.5-5.0) g/dL Microbiology - Last 24 Hours (Table) 10/10/17 10:04 Urine Culture - Final Urine,Voided 10/10/17 07:30 Blood Culture - Preliminary Blood No Growth after 24 hours Assessment and Plan (1) Pancytopenia due to antineoplastic chemotherapy Narrative/Plan: Pt continues to have significant pancytopenia, due to chemo for osteosarcoma. She received neulasta on 10/01/17, and is > 10 days post, with persistently low WBC. She has no evidence of infection.However, given her risk due to hospitalization, I will start GCSF. Plt and Hgb are in a safe range. Continue to monitor and transfuse as needed Current Visit: Yes Status: Acute Code(s): D61.810 - ANTINEOPLASTIC CHEMOTHERAPY INDUCED PANCYTOPENIA; T45.1X5A - ADVERSE EFFECT OF ANTINEOPLASTIC AND IMMUNOSUP DRUGS, INIT SNOMED Code(s): 952826125193065 (2) Dehydration Narrative/Plan: Due to chemo effect, along with dyselectrolytemia. Continue hydration and lytes replacement. She is expected to improve as she gets further out from chemo Current Visit: Yes Status: Acute Code(s): E86.0 - DEHYDRATION SNOMED Code( s): 65552958 (3) Osteosarcoma Narrative/Plan: The pt is s/p resection, and is currently undergoing adjuvant chemo Current Visit: Yes Status: Acute Code(s): C41.9 - MALIGNANT NEOPLASM OF BONE AND ARTICULAR CARTILAGE, UNSP SNOMED Code(s): 466419804 (4) Breast cancer, right breast Narrative/Plan: Currently in remission Current Visit: No Status: Chronic Priority: High Code(s): C50.911 - MALIGNANT NEOPLASM OF UNSP SITE OF RIGHT FEMALE BREAST SNOMED Code(s): 584990663
[2017-10-12] MEDS: CEFEPIME 2 GM in SODIUM CHLORIDE 0.9% 50 ML IVPB SCH ×4 (00:08→22:55)
[2017-10-12] MEDS: ACETAMINOPHEN TAB 325 MG TAB PO PRN ×3 (05:46→18:08)
[2017-10-12 06:21] LABS: Anisocytosis Slight; HGB 7.1 gm/dL (11.4-16.0); Hypochromasia Slight; MCH 29.9 pg (25.0-35.0); MCHC 33.8 g/dL (31.0-37.0); MCV 88.3 fL (80.0-100.0); Mean Platelet Volume 10.9; Poikilocytosis Slight; RBC 2.38 m/uL (3.80-5.40); RDW 17.7 % (11.5-15.5)
[2017-10-12 06:28] LABS: WBC 0.4 k/uL (3.8-10.6)
[2017-10-12 06:29] LABS: Platelet Count 22 k/uL (150-450)
[2017-10-12 06:30] LABS: ALT 38 U/L (9-52); AST 17 U/L (14-36); Albumin 2.8 g/dL (3.5-5.0); Alkaline Phosphatase 140 U/L (38-126); Anion Gap 11 mmol/L; Blood Urea Nitrogen 21 mg/dL (7-17); Carbon Dioxide 24 mmol/L (22-30); Chloride 106 mmol/L (98-107); Glucose 133 mg/dL (74-99); Sodium 141 mmol/L (137-145); Total Bilirubin 0.5 mg/dL (0.2-1.3)
[2017-10-12 06:46] LABS: Potassium 2.9 mmol/L (3.5-5.1)
[2017-10-12] MEDS ORDERED: Potassium Replacement Protocol 1 EACH MISC MISCELLANE PRN ×2 (07:06→17:14)
[2017-10-12] MEDS ORDERED: Magnesium Replacement Protocol 1 EACH MISC MISCELLANE PRN (07:07)
[2017-10-12] MEDS ORDERED: POTASSIUM CHLORIDE 20 MEQ in SODIUM CHLORIDE 0.9% 100 ML IV ONE (08:00)
[2017-10-12] MEDS: MAGNESIUM SULFATE-D5W PMX 1 GM in DEXTROSE/WATER 1 100ML.BAG IVPB SCH ×3 (08:08→11:13)
[2017-10-12] MEDS: LEVOTHYROXINE 100 MCG TAB PO SCH (08:09)
[2017-10-12] MEDS: THIAMINE 100 MG TAB PO SCH (08:09)
[2017-10-12] MEDS: POTASSIUM CHLORIDE ER 20 MEQ TAB.ER PO SCH ×2 (08:09→21:09)
[2017-10-12] MEDS: TORSEMIDE 20 MG TAB PO SCH (08:10)
[2017-10-12] MEDS: MAGNESIUM OXIDE 400 MG TAB PO SCH ×3 (08:10→21:10)
[2017-10-12] MEDS: IPRATROPIUM 0.5 MG/2.5 ML NEBU INHALATION SCH ×4 (09:04→20:10)
[2017-10-12] MEDS: BUDESONIDE 1 MG/2 ML NEBU INHALATION SCH ×2 (09:04→20:23)
[2017-10-12] MEDS: FORMOTEROL FUMARATE 20 MCG/2 ML NEBU INHALATION SCH ×2 (09:05→20:23)
--- NOTE | 2017-10-12 10:50 | XR ---
EXAMINATION TYPE: XR chest 1V portable DATE OF EXAM: 10/12/2017 HISTORY: Shortness of breath. COMPARISON: 10/11/2017 TECHNIQUE: Single view of the chest is submitted. FINDINGS: Demonstrated are scattered senescent parenchymal change. Bilateral pulmonary nodules are noted. There is no evidence for focal infiltrate. The heart is stable. Hilar and mediastinal structures are within normal limits. Degenerative changes are seen of the dorsal spine. MediPort catheter unchanged in position. IMPRESSION: 1. Chronic changes without evidence for acute pulmonary disease.
[2017-10-12] MEDS: OSELTAMIVIR 60 MG/10 ML ORAL SYRINGE PO SCH ×2 (12:47→21:10)
[2017-10-12] MEDS: FILGRASTIM-SNDZ 480 MCG/0.8 ML SYRINGE SQ SCH (12:48)
[2017-10-12] MEDS ORDERED: POTASSIUM CHLORIDE 20 MEQ in SODIUM CHLORIDE 0.9% 100 ML IVPB ONE (17:14)
--- NOTE | 2017-10-12 18:04 | PN ---
PROGRESS NOTE DATE OF SERVICE: 10/12/2017 This 57-year-old woman who was admitted with dizziness and weakness had electrolyte abnormalities. Magnesium and potassium are improving, but today the patient is again having hypomagnesemia. Patient also complains of cough. Influenza test has come back positive for influenza A. Tamiflu has been started. Potassium is 3.2. Patient still has pancytopenia, also. Otherwise, cultures remain negative. Past medical history reviewed. REVIEW OF SYSTEMS: CARDIOVASCULAR SYSTEM: No angina, palpitations. RESPIRATORY SYSTEM: As mentioned earlier. GI: No nausea, vomiting. : No dysuria or retention. NERVOUS SYSTEM: Diffusely weak. CURRENT MEDICATIONS: Current medications are reviewed and include: 1. Tylenol 650 q.6 p.r.n. 2. Pulmicort 1 mg b.i.d. 3. Cefepime 2 grams IV q.8. 4. Vitamin D2. 5. Filgrastim 480 daily. 6. Perforomist b.i.d. 7. Atrovent. 8. Synthroid 300 mcg p.o. each morning. 9. KCl. 10.Magnesium oxide. 11.Procardia XL. 12.Tamiflu 30 mg p.o. b.i.d. 13.K-Dur 10 mEq p.o. b.i.d. 14.Vitamin B1 100 mg daily. 15.Demadex 10 mg p.o. daily. PHYSICAL EXAMINATION: Patient is alert and oriented x3. Pulse is 124, blood pressure 130/63, respiration 18, temperature 99.4, pulse ox 98% on room air. HEENT: Conjunctivae normal. NECK: No jugular venous distention. CARDIOVASCULAR SYSTEM: S1, S2 muffled. RESPIRATORY SYSTEM: Breath sounds diminished at the bases. A few scattered rhonchi and crackles. ABDOMEN: Soft, nontender. No mass palpable. LEGS: No edema. No swelling. NERVOUS SYSTEM: Higher functions as mentioned earlier. Moves all 4 limbs. No focal motor or sensory deficit. LYMPHATICS: No lymph node palpable in neck, axillae or groin. SKIN: No ulcer, rash, bleeding. LABS: WBC 0.4, hemoglobin 7.1, platelets 22. Sodium 141, potassium 2.9. ASSESSMENT: 1. Dizziness and weakness with severe electrolyte abnormality. 2. Acute influenza A. 3. Severe hypokalemia. 4. History of hypomagnesemia, persistent. 5. Severe pancytopenia. 6. Leukopenia and neutropenia, thrombocytopenia. 7. History of recent chemotherapy for breast cancer with metastases. 8. Anemia. 9. Increased AST, ALT, alkaline phosphatase. 10.History of chest pain, angina. 11.History of chronic obstructive pulmonary disease. 12.Hypertension. 13.History of pulmonary embolism. 14.History of deep vein thrombosis of the right leg. 15.History of CPAP, sleep apnea. 16.History of bariatric surgery. 17.History of cholecystectomy. RECOMMENDATIONS AND DISCUSSION: I recommend to continue current medication, continue symptomatic treatment. Monitor magnesium. Repeat magnesium. Otherwise, replace potassium. The patient already received 3 grams. For influenza, Tamiflu. Guarded prognosis because of multiple complex medical issues. Further recommendations to follow. MMBETTYL / IJN: [id number] / MTDD
[2017-10-12] MEDS ORDERED: LOPERAMIDE 2 MG CAP PO PRN (19:13)
--- NOTE | 2017-10-12 21:59 | P.CONS ---
History of Present Illness - Reason for Consult Consult date: 10/12/17 - Chief Complaint Increasing weakness and fatigue - History of Present Illness Very pleasant 57-year-old female who has a known history of breast carcinoma in her right breast diagnosed in May 2016. 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 She went on to mastectomy and sentinel node biopsy that had one note with micrometastasis others were negative. She was in the [place] and was treated with chemotherapy. This past April she developed severe pain to her right knee was found evidence of a new malignancy into the right knee and was treated with cis-[place] and doxorubicin. She now presents to Hospital feeling poorly with dehydration as well as hypokalemia hypomagnesemia and pancytopenia. She's felt very poorly at that time. She was treated with systemic antibiotic therapy was still feeling poorly and workup ensued with positive influenza a the infectious diseases consultation was requested. It essentially continues to feel poorly. Temperature 100.4 noted she feels short of breath she has cough without much sputum production and has malaise which are worse than she is used to feeling with her chemotherapy. Denies rigors. No skin rashes or other acute changes are noted. Review of Systems HEENT:Denies headache or acute visual change. Denies sinus or mouth discomforts. Denies neck stiffness or pain. Denies significant oral cavity pain. Denies difficulty on swallowing. Lungs: As per the HPI has cough and since whom production but is not profoundly short of breath Cardiovascular: Is not having chest pain or orthopnea but does have dyspnea on exertion. Gastrointestinal:Denies nausea, vomiting, diarrhea, constipation, hematemesis, melena, hematochezia. No no significant change of bowel habit noticed. Musculoskeletal: denies significant myalgias or arthralgias. No new joint swelling. Denies new back pain. Skin: Denies new rash or lesions. No new ulcers or wounds are related.. Neuro: Denies headache or visual change. Denies any new onset weakness or difficulty with ambulation. Denies falls or seizures. Psychiatric: Has anxiety regarding her illness Endocrine: Severe fatigue has had some weight loss but did have bariatric procedure Past Medical History Past Medical History: Cancer, Chest Pain / Angina, COPD, Hypertension, Pulmonary Embolus (PE), Sleep Apnea/CPAP/BIPAP, Thyroid Disorder Additional Past Medical History / Comment(s): decrease in sleep apnea with wt loss from chemo. Hx: POST MENOPAUSAL BLEEDING. Weight loss of 100lb. bone cx and breast cancer History of Any Multi-Drug Resistant Organisms: None Reported Past Surgical History: Bariatric Surgery, Breast Surgery, Cholecystectomy, Hernia Repair, Hysterectomy, Tubal Ligation Additional Past Surgical History / Comment(s): Lap band, now removed. Stomach bypass. Left breast bx (NEG). rt total knee replacement because of bone ca Past Anesthesia/Blood Transfusion Reactions: No Reported Reaction Additional Past Anesthesia/Blood Transfusion Reaction / Comm: STATES MOTHER HAD DIFFICULTY WAKING UP. Past Psychological History: No Psychological Hx Reported Additional Psychological History / Comment(s): lives in the family home with her and adopted 15-year-old challenged child. No pets. No international travel. Used to run a daycare. No experience Smoking Status: Never smoker Past Alcohol Use History: None Reported Past Drug Use History: None Reported - Past Family History Father Family Medical History: Cancer Additional Family Medical History / Comment(s): colon and esophagus cancer Medications and Allergies Home Medications and Allergies Comment(s): Current Medications Acetaminophen (Tylenol Tab) 650 mg PO Q6HR PRN PRN Reason: Fever Last Admin: 10/12/17 18:08 Dose: 650 mg Budesonide (Pulmicort) 1 mg INHALATION RT-BID [facility] Last Admin: 10/12/17 20:23 Dose: 1 mg Ergocalciferol (Vitamin D2) 50,000 unit PO CHAVEZ [facility] Last Admin: 10/10/17 08:44 Dose: 50,000 unit Filgrastim (Zarxio) 480 mcg SQ DAILY [facility] Last Admin: 10/12/17 12:48 Dose: 480 mcg Formoterol Fumarate (Perforomist) 20 mcg INHALATION RT-BID [facility] Last Admin: 10/12/17 20:23 Dose: 20 mcg Cefepime HCl 2 gm/ Sodium (Chloride) 50 mls @ 100 mls/hr IVPB Q8HR [facility] Last Admin: 10/12/17 15:35 Dose: 100 mls/hr Ipratropium [place] (Atrovent Nebulized) 0.5 mg INHALATION RT-QID [facility] Last Admin: 10/12/17 20:10 Dose: 0.5 mg Ipratropium [place] (Atrovent Nebulized) 0.5 mg INHALATION RT-QID PRN PRN Reason: Shortness Of Breath Or Wheezing Levothyroxine Sodium (Synthroid) 300 mcg PO QAM [facility] Last Admin: 10/12/17 08:09 Dose: 300 mcg Loperamide HCl (Imodium) 2 mg PO QID PRN PRN Reason: Diarrhea Magnesium Oxide (Mag-Ox) 400 mg PO TID [facility] Last Admin: 10/12/17 21:10 Dose: 400 mg Miscellaneous Information (Potassium Per Protocol) 1 each MISCELLANE DAILY PRN ; Protocol PRN Reason: Per Protocol Miscellaneous Information (Potassium Per Protocol) 1 each MISCELLANE DAILY PRN ; Protocol PRN Reason: Per Protocol Miscellaneous Information (Magnesium Per Protocol) 1 each MISCELLANE DAILY PRN ; Protocol PRN Reason: Per Protocol Miscellaneous Information (Potassium Per Protocol) 1 each MISCELLANE DAILY PRN ; Protocol PRN Reason: Per Protocol Nifedipine (Procardia Xl) 30 mg PO DAILY PRN PRN Reason: Blood Pressure - High Nystatin (Mycostatin Powder) 1 applic TOPICAL BID PRN PRN Reason: Rash Oseltamivir Phosphate (Tamiflu) 30 mg PO Q12HR [facility] Stop: 10/16/17 21:01 Last Admin: 10/12/17 21:10 Dose: 30 mg Oxycodone/Acetaminophen (Percocet 5-325) 1 - 2 each PO Q6H PRN PRN Reason: Pain Last Admin: 10/11/17 21:49 Dose: 1 each Potassium Chloride (K-Dur 20) 20 meq PO BID [facility] Last Admin: 10/12/17 21:09 Dose: 20 meq Thiamine HCl (Vitamin B-1) 100 mg PO DAILY [facility] Last Admin: 10/12/17 08:09 Dose: 100 mg Torsemide (Demadex) 20 mg PO DAILY [facility] Last Admin: 10/12/17 08:10 Dose: 20 mg Home Medications Medication Instructions Recorded Confirmed Type Levothyroxine Sodium [Synthroid] 300 mcg PO QAM 01/16/16 10/09/17 History Ergocalciferol (Vitamin D2) 50,000 unit PO CHAVEZ 08/27/16 10/09/17 History [Vitamin D2] Thiamine [Vitamin B-1] 100 mg PO DAILY 08/27/16 10/09/17 History Nystatin [Nystop] 1 applic TOPICAL BID PRN 06/04/17 10/09/17 History Tiotropium 18 Mcg/Puff [Spiriva] 1 cap INHALATION RT-DAILY 06/04/17 10/09/17 History oxyCODONE-APAP 5-325MG [Percocet 1 - 2 tab PO Q4-6H PRN 06/04/17 10/09/17 History 5-325 mg] NIFEdipine [NIFEdipine ER] 30 mg PO DAILY PRN 07/30/17 10/09/17 History Torsemide [Demadex] 20 mg PO DAILY 07/30/17 10/09/17 History Enoxaparin [Lovenox] 100 mg SQ Q12H 10/06/17 10/09/17 History Magnesium Oxide [Mag-Ox] 400 mg PO BID 10/06/17 10/09/17 History Potassium Chloride ER [K-Dur 20] 20 meq PO BID 10/06/17 10/09/17 History Allergies Allergy/AdvReac Type Severity Reaction Status Date / Time adhesive Allergy Rash/Hives Verified 10/09/17 12:09 prochlorperazine Allergy Swelling Verified 10/09/17 12:09 [From Compazine] prochlorperazine edisylate Allergy Swelling Verified 10/09/17 12:09 [From Compazine] prochlorperazine maleate Allergy Swelling Verified 10/09/17 12:09 [From Compazine] ranitidine HCl [From Zantac] Allergy Swelling Verified 10/09/17 12:09 Physical Exam Vitals: Vital Signs Temp Pulse Pulse Pulse Resp BP Pulse Ox 10/12/17 21:01 18 10/12/17 20:34 95 10/12/17 20:24 95 10/12/17 20:22 95 10/12/17 20:12 94 10/12/17 16:51 95 10/12/17 16:41 93 10/12/17 15:10 120 H 18 10/12/17 15:00 99.4 F 124 H 18 130/63 98 10/12/17 12:25 99.1 F 10/12/17 09:25 94 10/12/17 09:18 106 H 10/12/17 09:16 106 H 10/12/17 09:07 120 H 10/12/17 08:00 105 H 18 10/12/17 07:00 100.5 F H 110 H 18 96/54 95 10/12/17 06:23 99.7 F H 10/12/17 05:45 100.2 F H 10/12/17 00:00 99.6 F 125 H 16 10/11/17 22:50 99.9 F H 125 H 16 116/65 95 10/11/17 22:00 100.4 F H Intake and Output 10/12/17 10/12/17 10/12/17 06:59 14:59 22:59 Intake Total 50 1100 600 Output Total 500 Balance 50 600 600 Intake: IV 50 Cefepime 2 gm In Sodium 50 Chloride 0.9% 50 ml @ 100 mls/hr IVPB Q8HR [facility] Rx# :[id number] Intake, IV Titration 50 400 200 Amount Cefepime 2 gm In Sodium 50 Chloride 0.9% 50 ml @ 100 mls/hr IVPB Q8HR [facility] Rx# :[id number] Magnesium Sulfate-D5w Pmx 300 100 1 gm In Dextrose/Water 1 100ml.bag @ 100 mls/hr IVPB Q1H [facility] Rx#: [id number] Potassium Chloride 20 meq 100 In Sodium Chloride 0.9% 100 ml @ 55 mls/hr IV ONCE ONE Rx#:[id number] Potassium Chloride 20 meq 100 In Sodium Chloride 0.9% 100 ml @ 55 mls/hr IVPB ONCE ONE Rx#:[id number] Oral 650 400 Output: Stool 500 Other: Voiding Method Toilet Toilet # Voids 1 3 2 # Bowel Movements 1 Weight 94 kg 94 kg 94 kg Patient Weight 10/13/17 06:59 Weight 94 kg 57-year-old woman with alopecia from her chemotherapy HEENT: Anicteric conjunctiva are pink and moist nasal mucosa grossly intact without significant lesions, there is no thrush. Neck: The neck is supple without significant lymphadenopathy or thyromegaly. Lungs: Symmetrical air entry is noted but she does have expiratory wheezes that are scattered no zeeshan bronchial sounds Heart: Regular rate and rhythm with an audible S1-S2, no S3 no S4. There is no significant murmur click or rub, PMI was nondisplaced. Abdomen: Positive bowel sounds soft and nontender without palpable masses or organomegaly. There was no guarding or rebound. Extremities: The upper extremities have excellent pulses they are symmetric, no significant petechiae or telangiectasia. No splinter hemorrhages were noted. The lower extremities are free from significant edema. The peripheral pulses were 2+ and symmetric. Neuro: Awake alert oriented to person place and time. There are no acute new gross focal sensory motor deficits. Results CBC & Chem 7: 10/12/17 05:55 10/12/17 13:00 Labs: Abnormal Lab Results - Last 24 Hours (Table) 10/12/17 10/12/17 10/12/17 Range/Units 05:55 05:55 10:55 WBC 0.4 L* (3.8-10.6) k/uL RBC 2.38 L (3.80-5.40) m/uL Hgb 7.1 L (11.4-16.0) gm/dL Hct 21.0 L (34.0-46.0) % RDW 17.7 H (11.5-15.5) % Plt Count 22 L* (150-450) k/uL Potassium 2.9 L* (3.5-5.1) mmol/L BUN 21 H (7-17) mg/dL Creatinine 1.11 H (0.52-1.04) mg/dL Glucose 133 H (74-99) mg/dL Calcium 8.0 L (8.4-10.2) mg/dL Magnesium 1.0 L* (1.6-2.3) mg/dL Alkaline Phosphatase 140 H (38-126) U/L Total Protein 5.0 L (6.3-8.2) g/dL Albumin 2.8 L (3.5-5.0) g/dL Influenza Type A RNA Detected H (Not Detectd) 10/12/17 10/12/17 Range/Units 13:00 13:00 WBC (3.8-10.6) k/uL RBC (3.80-5.40) m/uL Hgb (11.4-16.0) gm/dL Hct (34.0-46.0) % RDW (11.5-15.5) % Plt Count (150-450) k/uL Potassium 3.2 L (3.5-5.1) mmol/L BUN (7-17) mg/dL Creatinine (0.52-1.04) mg/dL Glucose (74-99) mg/dL Calcium (8.4-10.2) mg/dL Magnesium 2.4 H (1.6-2.3) mg/dL Alkaline Phosphatase (38-126) U/L Total Protein (6.3-8.2) g/dL Albumin (3.5-5.0) g/dL Influenza Type A RNA (Not Detectd) Microbiology - Last 24 Hours (Table) 10/10/17 07:30 Blood Culture - Preliminary Blood No Growth after 48 hours Laboratory Results WBC 0.4 k/uL (3.8-10.6) L* 10/12/17 05:55 RBC 2.38 m/uL (3.80-5.40) L 10/12/17 05:55 Hgb 7.1 gm/dL (11.4-16.0) L 10/12/17 05:55 Hct 21.0 % (34.0-46.0) L 10/12/17 05:55 MCV 88.3 fL (80.0-100.0) 10/12/17 05:55 MCH 29.9 pg (25.0-35.0) 10/12/17 05:55 MCHC 33.8 g/dL (31.0-37.0) 10/12/17 05:55 RDW 17.7 % (11.5-15.5) H 10/12/17 05:55 Plt Count 22 k/uL (150-450) L* 10/12/17 05:55 Neutrophils % Not Reportable 10/10/17 08:33 Lymphocytes % Not Reportable 10/10/17 08:33 Monocytes % Not Reportable 10/10/17 08:33 Eosinophils % Not Reportable 10/10/17 08:33 Basophils % Not Reportable 10/10/17 08:33 Neutrophils # Not Reportable 10/10/17 08:33 Lymphocytes # Not Reportable 10/10/17 08:33 Monocytes # Not Reportable 10/10/17 08:33 Eosinophils # Not Reportable 10/10/17 08:33 Basophils # Not Reportable 10/10/17 08:33 Differential Comment 10/12/17 05:55 Manual Slide Review Performed 10/12/17 05:55 Hypochromasia Slight 10/12/17 05:55 Poikilocytosis Slight 10/12/17 05:55 Anisocytosis Slight 10/12/17 05:55 PT 11.8 sec (9.0-12.0) 10/09/17 11:58 INR 1.2 (<1.2) H 10/09/17 11:58 APTT 31.2 sec (22.0-30.0) H 10/09/17 11:58 Sodium 141 mmol/L (137-145) 10/12/17 05:55 Potassium 3.2 mmol/L (3.5-5.1) L 10/12/17 13:00 Chloride 106 mmol/L (98-107) 10/12/17 05:55 Carbon Dioxide 24 mmol/L (22-30) 10/12/17 05:55 Anion Gap 11 mmol/L 10/12/17 05:55 BUN 21 mg/dL (7-17) H 10/12/17 05:55 Creatinine 1.11 mg/dL (0.52-1.04) H 10/12/17 05:55 Est GFR (MDRD) Af Amer >60 (>60 ml/min/1.73 sqM) 10/12/17 05:55 Est GFR (MDRD) Non-Af 50 (>60 ml/min/1.73 sqM) 10/12/17 05:55 Glucose 133 mg/dL (74-99) H 10/12/17 05:55 Calcium 8.0 mg/dL (8.4-10.2) L 10/12/17 05:55 Magnesium 2.0 mg/dL (1.6-2.3) 10/12/17 19:05 Total Bilirubin 0.5 mg/dL (0.2-1.3) 10/12/17 05:55 AST 17 U/L (14-36) 10/12/17 05:55 ALT 38 U/L (9-52) 10/12/17 05:55 Alkaline Phosphatase 140 U/L (38-126) H 10/12/17 05:55 Total Creatine Kinase 24 U/L (30-135) L 10/09/17 11:58 CK-MB (CK-2) <0.2 ng/mL (0.0-2.4) 10/09/17 11:58 CK-MB (CK-2) Rel Index 10/09/17 11:58 Troponin I 0.033 ng/mL (0.000-0.034) 10/09/17 11:58 Total Protein 5.0 g/dL (6.3-8.2) L 10/12/17 05:55 Albumin 2.8 g/dL (3.5-5.0) L 10/12/17 05:55 Urine Color Yellow 10/10/17 03:15 Urine Appearance Cloudy (Clear) H 10/10/17 03:15 Urine pH 6.0 (5.0-8.0) 10/10/17 03:15 Ur Specific Allen 1.012 (1.001-1.035) 10/10/17 03:15 Urine Protein 1+ (Negative) H 10/10/17 03:15 Urine Glucose (UA) Negative (Negative) 10/10/17 03:15 Urine Ketones Negative (Negative) 10/10/17 03:15 Urine Blood Negative (Negative) 10/10/17 03:15 Urine Nitrite Positive (Negative) H 10/10/17 03:15 Urine Bilirubin Negative (Negative) 10/10/17 03:15 Urine Urobilinogen <2.0 mg/dL (<2.0) 10/10/17 03:15 Ur Leukocyte Esterase Large (Negative) H 10/10/17 03:15 Urine RBC 5 /hpf (0-5) 10/10/17 03:15 Urine WBC 171 /hpf (0-5) H 10/10/17 03:15 Urine WBC Clumps Rare /hpf (None) H 10/10/17 03:15 Ur Squamous Epith Cells 2 /hpf (0-4) 10/10/17 03:15 Urine Bacteria Few /hpf (None) H 10/10/17 03:15 Urine Mucus Rare /hpf (None) H 10/10/17 03:15 C. difficile (EIA) Intrp Negative (Negative) 10/12/17 11:40 Influenza Type A RNA Detected (Not Detectd) H 10/12/17 10:55 Influenza Type B (PCR) Not Detected (Not Detectd) 10/12/17 10:55 Blood Type O Positive 10/09/17 11:58 Blood Type Recheck No 10/09/17 11:58 Antibody Screen NEGATIVE 10/09/17 11:58 Crossmatch See Detail 10/09/17 11:58 Transfuse Platelets 10/10/17 10/10/17 08:00 Spec Expiration Date 10/12/2017 - 9573 10/09/17 11:58 Microbiology 10/10/17 07:30 Blood Blood Culture - Preliminary No Growth after 48 hours Chest x-ray: report reviewed (No pneumonia noted) Assessment and Plan (1) Pancytopenia due to antineoplastic chemotherapy Narrative/Plan: 57-year-old female with a very complex recent past medical history starting first with her breast carcinoma receiving treatment including chemotherapy. Then developed significant pain and was on evidence of the osteosarcoma has been receiving further chemotherapy with cis-[place] and doxorubicin. Now presents feeling ill. Pancytopenia was noted and was begun on antibiotic therapy. Did not have marked improvement and with influenza testing was found to have evidence of influenza a. Tamiflu was started. The appropriate doses now been dealt with with the pharmacy and hopefully will allow rapid resolution of her acute illness. She is receiving respiratory treatments. Antibiotic therapy continues with cefepime because of her neutropenia and illness. Blood cultures are negative at this time. Her port is intact and does not appear to be infected. No need for the addition of vancomycin at this time. Cultures as indicated especially if she has further fever. Growth factors been given and hopefully she'll recover her white count soon which will allow further resolution of her influenza. The dosing of her Tamiflu should continue as long as she's having symptoms regardless of the number of doses. Current Visit: Yes Status: Acute Code(s): D61.810 - ANTINEOPLASTIC CHEMOTHERAPY INDUCED PANCYTOPENIA; T45.1X5A - ADVERSE EFFECT OF ANTINEOPLASTIC AND IMMUNOSUP DRUGS, INIT SNOMED Code(s): 893542269976888 (2) Osteosarcoma Current Visit: Yes Status: Acute Code(s): C41.9 - MALIGNANT NEOPLASM OF BONE AND ARTICULAR CARTILAGE, UNSP SNOMED Code(s): 319712890 (3) Breast cancer Current Visit: Yes Status: Acute Code(s): C50.919 - MALIGNANT NEOPLASM OF UNSP SITE OF UNSPECIFIED FEMALE BREAST SNOMED Code(s): 870844303 (4) Influenza A Current Visit: Yes Status: Acute Code(s): J10.1 - FLU DUE TO OTH IDENT INFLUENZA VIRUS W OTH RESP MANIFEST SNOMED Code(s): 449290957
[2017-10-12] MEDS: OSELTAMIVIR 75 MG CAP PO SCH (22:54)
[2017-10-13 06:46] LABS: Anisocytosis Slight; HCT 21.1 % (34.0-46.0); HGB 7.2 gm/dL (11.4-16.0); Hyperchromasia Slight; MCH 28.9 pg (25.0-35.0); MCHC 33.9 g/dL (31.0-37.0); MCV 85.2 fL (80.0-100.0); Mean Platelet Volume 10.5; Poikilocytosis Moderate; RBC 2.47 m/uL (3.80-5.40); RDW 17.2 % (11.5-15.5)
[2017-10-13 06:52] LABS: Platelet Count 24 k/uL (150-450)
[2017-10-13 07:32] LABS: Albumin 2.6 g/dL (3.5-5.0); Calcium 8.3 mg/dL (8.4-10.2); Magnesium 1.8 mg/dL (1.6-2.3); Potassium 3.6 mmol/L (3.5-5.1); Total Bilirubin 0.4 mg/dL (0.2-1.3); Total Protein 4.9 g/dL (6.3-8.2)
[2017-10-13] MEDS: CEFEPIME 2 GM in SODIUM CHLORIDE 0.9% 50 ML IVPB SCH ×2 (07:36→15:51)
[2017-10-13] MEDS: TORSEMIDE 20 MG TAB PO SCH (07:37)
[2017-10-13] MEDS: ACETAMINOPHEN TAB 325 MG TAB PO PRN (07:37)
[2017-10-13] MEDS: THIAMINE 100 MG TAB PO SCH (07:37)
[2017-10-13] MEDS: POTASSIUM CHLORIDE ER 20 MEQ TAB.ER PO SCH ×2 (07:37→18:15)
[2017-10-13] MEDS: OSELTAMIVIR 75 MG CAP PO SCH ×2 (07:37→20:47)
[2017-10-13] MEDS: MAGNESIUM OXIDE 400 MG TAB PO SCH ×4 (07:37→20:47)
[2017-10-13 07:39] LABS: Band Neutrophils % 14 %; Metamyelocytes # (M) 0.01 k/uL (0); Metamyelocytes % 1 %; Monocytes # (M) 0.21 k/uL (0-1.0); Myelocytes # (M) 0.01 k/uL (0); Myelocytes % 1 %; Neutrophils % (M) 33 %; Nucleated Red Blood Cells 4 /100 WBC (0-0)
[2017-10-13 07:53] LABS: Polychromasia Present
[2017-10-13 07:54] LABS: Spherocytes Present
[2017-10-13 08:06] LABS: Toxic Granulation Present
[2017-10-13] MEDS: BUDESONIDE 1 MG/2 ML NEBU INHALATION SCH ×2 (08:15→19:09)
[2017-10-13] MEDS: IPRATROPIUM 0.5 MG/2.5 ML NEBU INHALATION SCH ×4 (08:15→19:09)
[2017-10-13] MEDS: FORMOTEROL FUMARATE 20 MCG/2 ML NEBU INHALATION SCH ×2 (08:38→19:09)
[2017-10-13] MEDS: LEVOTHYROXINE 100 MCG TAB PO SCH (09:00)
[2017-10-13 10:22] LABS: Total Cells Counted 200
[2017-10-13] MEDS: FILGRASTIM-SNDZ 480 MCG/0.8 ML SYRINGE SQ SCH (14:14)
[2017-10-13 18:59] LABS: Magnesium 1.7 mg/dL (1.6-2.3); Potassium 3.7 mmol/L (3.5-5.1)
--- NOTE | 2017-10-13 21:22 | PN ---
PROGRESS NOTE DATE OF SERVICE: 10/13/2017. This 57-year-old woman who was admitted with dizziness and weakness and severe electrolyte abnormalities is being closely monitored. No chest pain. No palpitations. No fever. EXAM: Alert, and oriented x3. Pulse is 106, blood pressure 99/54, respirations 16, temperature 98.8, pulse ox 100% on room air. HEENT: Conjunctivae normal. NECK: No jugular venous distention. CARDIOVASCULAR: S1, S2 muffled. RESPIRATORY: Breath sounds diminished in the bases. A few scattered rhonchi and crackles. ABDOMEN: Soft, nontender. LEGS: No edema. NERVOUS SYSTEM: Nonfocal. LABS: WBC is 1, hemoglobin is 7.2 and platelets are 24. Potassium 3.7. Magnesium is 1.8. ASSESSMENT: 1. Dizziness and weakness and severe electrolyte abnormality. 2. Acute influenza A. 3. Severe hypokalemia. 4. History of hypomagnesemia, persistent. 5. Severe pancytopenia. 6. Leukopenia. 7. Neutropenia. 8. Thrombocytopenia. 9. History of recent chemotherapy for breast cancer with metastasis. 10.Anemia. 11.Increased AST ALT, alkaline phosphatase. 12.History of chest pain angina. 13.History of chronic obstructive pulmonary disease. 14.Hypertension. 15.History of pulmonary embolism. 16.History of deep venous thrombosis of the right leg. 17.History of CPAP, sleep apnea. 18.History of bariatric surgery. 19.History of cholecystectomy. RECOMMENDATIONS AND DISCUSSION: Recommend to continue current medical management and continue symptomatic treatment. Continue supplementing the potassium as well as put magnesium. Continue to monitor. Empiric antibiotics. Will continue with Tamiflu as well. Guarded prognosis because of multiple complex medical issues. Further recommendations to follow. Closely follow with Infectious Disease. MMODL / IJN: [id number] /
[2017-10-14] MEDS: CEFEPIME 2 GM in SODIUM CHLORIDE 0.9% 50 ML IVPB SCH ×4 (00:32→23:16)
[2017-10-14] MEDS: POTASSIUM CHLORIDE ER 20 MEQ TAB.ER PO SCH ×2 (07:22→21:40)
[2017-10-14] MEDS: OSELTAMIVIR 75 MG CAP PO SCH ×2 (07:23→21:42)
[2017-10-14] MEDS: LEVOTHYROXINE 100 MCG TAB PO SCH (07:23)
[2017-10-14] MEDS: MAGNESIUM OXIDE 400 MG TAB PO SCH ×4 (07:23→21:40)
[2017-10-14] MEDS: TORSEMIDE 20 MG TAB PO SCH (07:23)
[2017-10-14] MEDS: THIAMINE 100 MG TAB PO SCH (07:23)
[2017-10-14] MEDS: FORMOTEROL FUMARATE 20 MCG/2 ML NEBU INHALATION SCH ×2 (07:29→21:06)
[2017-10-14] MEDS: IPRATROPIUM 0.5 MG/2.5 ML NEBU INHALATION SCH ×5 (07:29→21:16)
[2017-10-14] MEDS: BUDESONIDE 1 MG/2 ML NEBU INHALATION SCH ×3 (07:30→21:11)
[2017-10-14 08:29] LABS: Albumin 2.2 g/dL (3.5-5.0); Anion Gap 6 mmol/L; Calcium 7.2 mg/dL (8.4-10.2); Carbon Dioxide 21 mmol/L (22-30); Chloride 111 mmol/L (98-107); Glucose 83 mg/dL (74-99); Sodium 138 mmol/L (137-145); Total Bilirubin 0.5 mg/dL (0.2-1.3); Total Protein 4.4 g/dL (6.3-8.2)
[2017-10-14 08:31] LABS: Potassium 3.4 mmol/L (3.5-5.1)
[2017-10-14 08:32] LABS: ALT 30 U/L (9-52); AST 20 U/L (14-36); Alkaline Phosphatase 128 U/L (38-126); Blood Urea Nitrogen 27 mg/dL (7-17); Magnesium 1.4 mg/dL (1.6-2.3)
[2017-10-14 09:18] LABS: Anisocytosis Slight; HCT 23.5 % (34.0-46.0); HGB 8.4 gm/dL (11.4-16.0); MCH 30.2 pg (25.0-35.0); MCHC 35.7 g/dL (31.0-37.0); MCV 84.6 fL (80.0-100.0); Poikilocytosis Moderate; RBC 2.78 m/uL (3.80-5.40); RDW 19.8 % (11.5-15.5); WBC 8.4 k/uL (3.8-10.6)
[2017-10-14 09:20] LABS: Platelet Count 46 k/uL (150-450)
[2017-10-14 10:01] LABS: Band Neutrophils % 3 %; Lymphocytes # (M) 1.26 k/uL (1.0-4.8); Monocytes # (M) 1.76 k/uL (0-1.0); Neutrophils % (M) 61 %; Nucleated Red Blood Cells 0 /100 WBC (0-0); Poikilocytosis (M) Present; Polychromasia Present; Total Cells Counted 100
[2017-10-14] MEDS ORDERED: Magnesium Replacement Protocol 1 EACH MISC MISCELLANE PRN (10:13)
[2017-10-14] MEDS ORDERED: Potassium Replacement Protocol 1 EACH MISC MISCELLANE PRN (10:14)
[2017-10-14 11:02] VITALS: BMI 36.7
[2017-10-14] MEDS: FILGRASTIM-SNDZ 480 MCG/0.8 ML SYRINGE SQ SCH (12:03)
[2017-10-14] MEDS ORDERED: POTASSIUM CHLORIDE ER 20 MEQ TAB.ER PO STA (12:05)
[2017-10-14] MEDS: MAGNESIUM SULFATE-D5W PMX 1 GM in DEXTROSE/WATER 1 100ML.BAG IVPB SCH ×3 (12:23→16:50)
[2017-10-14] MEDS: POTASSIUM CHLORIDE 20 MEQ in SODIUM CHLORIDE 0.9% 100 ML IVPB SCH ×2 (13:23→15:54)
--- NOTE | 2017-10-14 15:45 | CDI ---
Last Revision, August 2017 Documentation Clarification Form Date: 10/14/2017 3:35:00 PM From: Chela Farnsworth RN Admit Date: 10/09/2017 2:44:00 PM Patient Name: Karissa Watkins Visit Number: [id number] ATTENTION: The Clinical Documentation Specialists (CDI) and [facility] Coding Staff appreciate your assistance in clarifying documentation. Please respond to the clarification below the line at the bottom and electronically sign. The CDI & [facility] Coding staff will review the response and follow-up if needed. Please note: Queries are made part of the Legal Health Record. If you have any questions, please contact the author of this message via ITS. Dr. Bob Newman, History/Risk Factors: breast cancer with metastasis with chemo., copd, htn. Clinical Indicators: Labs: Albumin/ Total Protein: 3.1/5.6 on admission. 10/14- 2.2/12/22 Current BMI: 36.7 Treatment: Lab monitoring Onyx supplements In your professional opinion, can you please clarify if these findings signify one of the following conditions? Mild Protein-Calorie Malnutrition Moderate Protein-Calorie Malnutrition Severe Protein-Calorie Malnutrition Malnutrition (other type) Other condition, please specify Unable to determine Please continue to document in your progress notes and discharge summary in order to capture severity of illness and risk of mortality. Include clinical findings that support your diagnosis. NONE MTDD
--- NOTE | 2017-10-14 18:06 | PN ---
PROGRESS NOTE DATE OF SERVICE: 10/18/2017 This 57-year-old woman was admitted with multiple electrolyte abnormalities and also acute influenza A. The patient also had hypokalemia and hypomagnesemia which have been corrected. The patient has pancytopenia, also. No fever. No cough. PHYSICAL EXAMINATION: Alert and oriented x3. Pulse is 107, blood pressure 109/60, respiration 18, temperature 97.6, pulse ox 100% on room air. HEENT: Conjunctivae normal. NECK: No jugular venous distention. CARDIOVASCULAR SYSTEM: S1, S2 muffled. RESPIRATORY SYSTEM: Breath sounds diminished at the bases. A few scattered rhonchi and crackles. Abdomen is soft, non-tender. LEGS: No edema. No swelling. NERVOUS SYSTEM: No focal deficit. LABS: WBC 8.4, hemoglobin 8.4, and platelets are 46. ASSESSMENT: 1. Dizziness and weakness with severe electrolyte abnormality. 2. Acute influenza A. 3. Severe hypokalemia. 4. History of hypomagnesemia, persistent. 5. Severe pancytopenia secondary to chemotherapy. 6. Leukopenia. 7. Neutropenia. 8. Thrombocytopenia. 9. History of recent chemotherapy for breast cancer with metastases. 10.Anemia. 11.Increased AST and ALT, alkaline phosphatase. 12.History of chest pain, angina. 13.History of chronic obstructive pulmonary disease. 14.Hypertension. 15.History of pulmonary embolus. 16.History of deep vein thrombosis of the right leg. 17.CPAP for sleep apnea. 18.History of bariatric surgery. 19.History of cholecystectomy. RECOMMENDATIONS AND DISCUSSION: I recommend to continue current medication, continue symptomatic treatment. Otherwise at this time I would recommend continuing with supplementing potassium and check magnesium at a later date; oral supplementation, dietary consultation. Guarded prognosis because of multiple complex medical issues. Further recommendations to follow. MMODL / IJN: [id number] /
[2017-10-14 19:10] LABS: Magnesium 2.9 mg/dL (1.6-2.3); Potassium 5.7 mmol/L (3.5-5.1)
[2017-10-14 22:43] VITALS: RESP 16
[2017-10-15 06:56] LABS: Anisocytosis Slight; HCT 20.3 % (34.0-46.0); Hypochromasia Slight; MCH 29.1 pg (25.0-35.0); MCV 88.2 fL (80.0-100.0); Mean Platelet Volume 10.8; Poikilocytosis Moderate; RBC 2.31 m/uL (3.80-5.40); WBC 8.1 k/uL (3.8-10.6)
[2017-10-15 07:04] LABS: Platelet Count 48 k/uL (150-450)
[2017-10-15 07:08] LABS: HGB 6.7 gm/dL (11.4-16.0)
[2017-10-15] MEDS: FORMOTEROL FUMARATE 20 MCG/2 ML NEBU INHALATION SCH (07:15)
[2017-10-15] MEDS: IPRATROPIUM 0.5 MG/2.5 ML NEBU INHALATION SCH ×3 (07:15→15:14)
[2017-10-15] MEDS: BUDESONIDE 1 MG/2 ML NEBU INHALATION SCH (07:15)
[2017-10-15] MEDS: TORSEMIDE 20 MG TAB PO SCH ×2 (08:14→08:15)
[2017-10-15] MEDS: OSELTAMIVIR 75 MG CAP PO SCH (08:15)
[2017-10-15] MEDS: THIAMINE 100 MG TAB PO SCH (08:15)
[2017-10-15] MEDS: POTASSIUM CHLORIDE ER 20 MEQ TAB.ER PO SCH (08:16)
[2017-10-15] MEDS: LEVOTHYROXINE 100 MCG TAB PO SCH (08:16)
[2017-10-15] MEDS: CEFEPIME 2 GM in SODIUM CHLORIDE 0.9% 50 ML IVPB SCH (08:16)
[2017-10-15] MEDS: MAGNESIUM OXIDE 400 MG TAB PO SCH ×2 (08:17→13:47)
[2017-10-15 11:07] LABS: Band Neutrophils % 2 %; Lymphocytes # (M) 0.97 k/uL (1.0-4.8); Metamyelocytes # (M) 0.24 k/uL (0); Metamyelocytes % 3 %; Monocytes # (M) 1.54 k/uL (0-1.0); Myelocytes # (M) 0.08 k/uL (0); Myelocytes % 1 %; Neutrophils % (M) 64 %; Nucleated Red Blood Cells 0 /100 WBC (0-0); Total Cells Counted 200
[2017-10-15 11:08] LABS: Polychromasia Present
[2017-10-15 11:17] LABS: Anion Gap 4 mmol/L; Blood Urea Nitrogen 29 mg/dL (7-17); Calcium 8.1 mg/dL (8.4-10.2); Carbon Dioxide 24 mmol/L (22-30); Chloride 109 mmol/L (98-107); Glucose 96 mg/dL (74-99); Potassium 4.3 mmol/L (3.5-5.1); Sodium 137 mmol/L (137-145)
--- NOTE | 2017-10-15 15:53 | P.PN ---
Subjective Progress Note Date: 10/14/17 The patient remains weak, but continues to feel stronger. She has had a low- grade fever, but not higher than 101. Her mouth feels better. Stools are loose. No obvious bleeding noted Objective - Vital Signs Vital signs: Vital Signs Temp 97.1 F L 10/15/17 13:35 Pulse 88 10/15/17 15:24 Resp 16 10/15/17 08:00 BP 100/60 10/15/17 13:35 Pulse Ox 100 10/15/17 13:35 Intake & Output 10/14/17 10/15/17 10/15/17 18:59 06:59 18:59 Intake Total 240 410 Output Total 500 Balance -260 410 Weight 94 kg Intake: IV 100 Cefepime 2 gm In Sodium 100 Chloride 0.9% 50 ml @ 100 mls/hr IVPB Q8HR [facility] Rx# :[id number] Oral 240 Blood Product 310 Rc Pheresis As-3 Unit 310 [id number] Output: Stool 500 Other: Voiding Method Toilet Toilet Toilet # Voids 2 1 # Bowel Movements 1 - Constitutional General appearance: Present: no acute distress - EENT Eyes: Present: EOMI, PERRLA ENT: Present: hearing grossly normal, normal oropharynx - Respiratory Respiratory: bilateral: CTA - Cardiovascular Rhythm: regular Heart sounds: normal: S1, S2 - Gastrointestinal General gastrointestinal: Present: normal bowel sounds, soft - Integumentary Integumentary: Present: normal - Neurologic Neurologic: Present: CNII-XII intact - Musculoskeletal Musculoskeletal: Present: generalized weakness, strength equal bilaterally - Psychiatric Psychiatric: Present: A&O x's 3, appropriate affect - Labs CBC & Chem 7: 10/15/17 06:15 10/15/17 06:15 Labs: Abnormal Lab Results - Last 24 Hours (Table) 10/09/17 10/14/17 10/15/17 Range/Units 11:58 18:30 06:15 RBC 2.31 L (3.80-5.40) m/uL Hgb 6.7 L* D (11.4-16.0) gm/dL Hct 20.3 L (34.0-46.0) % RDW 19.0 H (11.5-15.5) % Plt Count 48 L* (150-450) k/uL Lymphocytes # (Manual) 0.97 L (1.0-4.8) k/uL Monocytes # (Manual) 1.54 H (0-1.0) k/uL Metamyelocytes # (Man) 0.24 H (0) k/uL Myelocytes # (Manual) 0.08 H (0) k/uL Potassium 5.7 H (3.5-5.1) mmol/L Chloride (98-107) mmol/L BUN (7-17) mg/dL Calcium (8.4-10.2) mg/dL Magnesium 2.9 H (1.6-2.3) mg/dL Crossmatch See Detail 10/15/17 10/15/17 Range/Units 06:15 09:11 RBC (3.80-5.40) m/uL Hgb (11.4-16.0) gm/dL Hct (34.0-46.0) % RDW (11.5-15.5) % Plt Count (150-450) k/uL Lymphocytes # (Manual) (1.0-4.8) k/uL Monocytes # (Manual) (0-1.0) k/uL Metamyelocytes # (Man) (0) k/uL Myelocytes # (Manual) (0) k/uL Potassium (3.5-5.1) mmol/L Chloride 109 H (98-107) mmol/L BUN 29 H (7-17) mg/dL Calcium 8.1 L (8.4-10.2) mg/dL Magnesium (1.6-2.3) mg/dL Crossmatch See Detail Microbiology - Last 24 Hours (Table) 10/10/17 07:30 Blood Culture - Preliminary Blood No Growth after 120 hours Assessment and Plan (1) Pancytopenia due to antineoplastic chemotherapy Narrative/Plan: the patient's white blood cell count has now normalized to 8.4. She did have a low-grade fever, but no temp greater than 101. The fever may have been related to white count recovery. Filgrastim will be discontinued. Hemoglobin and platelets remain low but in a safe range. No transfusion recommended today. Continue to monitor with transfusion support as needed. Current Visit: Yes Status: Acute Code(s): D61.810 - ANTINEOPLASTIC CHEMOTHERAPY INDUCED PANCYTOPENIA; T45.1X5A - ADVERSE EFFECT OF ANTINEOPLASTIC AND IMMUNOSUP DRUGS, INIT SNOMED Code(s): 311641002070745 (2) Dehydration Current Visit: Yes Status: Acute Code(s): E86.0 - DEHYDRATION SNOMED Code( s): 67670877 (3) Osteosarcoma Narrative/Plan: patient has follow-up scheduled with her oncologist Dr. Hansen at [facility] next week Current Visit: Yes Status: Acute Code(s): C41.9 - MALIGNANT NEOPLASM OF BONE AND ARTICULAR CARTILAGE, UNSP SNOMED Code(s): 850878865 (4) Breast cancer, right breast Current Visit: No Status: Chronic Priority: High Code(s): C50.911 - MALIGNANT NEOPLASM OF UNSP SITE OF RIGHT FEMALE BREAST SNOMED Code(s): 138373639
[2017-10-15 16:20] VITALS: BP 102/60; PULSE 96; TEMP 97.6
--- NOTE | 2017-10-15 19:11 | P.PN ---
Subjective Progress Note Date: 10/15/17 Principal diagnosis: Influenza A Very pleasant 57-year-old female who has a known history of breast carcinoma in her right breast diagnosed in May 2016. 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 She went on to mastectomy and sentinel node biopsy that had one note with micrometastasis others were negative. [facility] and was treated with chemotherapy. This past April she developed severe pain to her right knee was found evidence of a new malignancy into the right knee and was treated with cis-hopi and doxorubicin. She now presents to Hospital feeling poorly with dehydration as well as hypokalemia hypomagnesemia and pancytopenia. She's felt very poorly at that time. She was treated with systemic antibiotic therapy was still feeling poorly and workup ensued with positive influenza a the infectious diseases consultation was requested. Is now feeling considerably better. Her fever has resolved. Her cough is resolved. She's no longer short of breath. Is ready for discharge to home. Objective - Vital Signs Vital signs: Vital Signs Temp 97.6 F 10/15/17 16:18 Pulse 96 10/15/17 16:18 Resp 16 10/15/17 16:18 BP 102/60 10/15/17 16:18 Pulse Ox 98 10/15/17 16:18 Intake & Output 10/15/17 10/15/17 10/16/17 06:59 18:59 06:59 Intake Total 410 Balance 410 Intake: IV 100 Cefepime 2 gm In Sodium 100 Chloride 0.9% 50 ml @ 100 mls/hr IVPB Q8HR [facility] Rx# :[id number] Blood Product 310 Rc Pheresis As-3 Unit 310 [id number] Other: Voiding Method Toilet Toilet # Voids 1 # Bowel Movements 1 - Exam 57-year-old woman with alopecia from her chemotherapy HEENT: Anicteric conjunctiva are pink and moist nasal mucosa grossly intact without significant lesions, there is no thrush. Neck: The neck is supple without significant lymphadenopathy or thyromegaly. Lungs: Symmetrical air entry is noted but she does have expiratory wheezes that are scattered no zeeshan bronchial sounds Heart: Regular rate and rhythm with an audible S1-S2, no S3 no S4. There is no significant murmur click or rub, PMI was nondisplaced. Abdomen: Positive bowel sounds soft and nontender without palpable masses or organomegaly. There was no guarding or rebound. Extremities: The upper extremities have excellent pulses they are symmetric, no significant petechiae or telangiectasia. No splinter hemorrhages were noted. The lower extremities are free from significant edema. The peripheral pulses were 2+ and symmetric. Neuro: Awake alert oriented to person place and time. There are no acute new gross focal sensory motor deficits. - Labs CBC & Chem 7: 10/15/17 06:15 10/15/17 06:15 Labs: Abnormal Lab Results - Last 24 Hours (Table) 10/09/17 10/14/17 10/15/17 Range/Units 11:58 18:30 06:15 RBC 2.31 L (3.80-5.40) m/uL Hgb 6.7 L* D (11.4-16.0) gm/dL Hct 20.3 L (34.0-46.0) % RDW 19.0 H (11.5-15.5) % Plt Count 48 L* (150-450) k/uL Lymphocytes # (Manual) 0.97 L (1.0-4.8) k/uL Monocytes # (Manual) 1.54 H (0-1.0) k/uL Metamyelocytes # (Man) 0.24 H (0) k/uL Myelocytes # (Manual) 0.08 H (0) k/uL Potassium 5.7 H (3.5-5.1) mmol/L Chloride (98-107) mmol/L BUN (7-17) mg/dL Calcium (8.4-10.2) mg/dL Magnesium 2.9 H (1.6-2.3) mg/dL Crossmatch See Detail 10/15/17 10/15/17 Range/Units 06:15 09:11 RBC (3.80-5.40) m/uL Hgb (11.4-16.0) gm/dL Hct (34.0-46.0) % RDW (11.5-15.5) % Plt Count (150-450) k/uL Lymphocytes # (Manual) (1.0-4.8) k/uL Monocytes # (Manual) (0-1.0) k/uL Metamyelocytes # (Man) (0) k/uL Myelocytes # (Manual) (0) k/uL Potassium (3.5-5.1) mmol/L Chloride 109 H (98-107) mmol/L BUN 29 H (7-17) mg/dL Calcium 8.1 L (8.4-10.2) mg/dL Magnesium (1.6-2.3) mg/dL Crossmatch See Detail Microbiology - Last 24 Hours (Table) 10/10/17 07:30 Blood Culture - Preliminary Blood No Growth after 120 hours Laboratory Results WBC 8.1 k/uL (3.8-10.6) 10/15/17 06:15 RBC 2.31 m/uL (3.80-5.40) L 10/15/17 06:15 Hgb 6.7 gm/dL (11.4-16.0) L* D 10/15/17 06:15 Hct 20.3 % (34.0-46.0) L 10/15/17 06:15 MCV 88.2 fL (80.0-100.0) 10/15/17 06:15 MCH 29.1 pg (25.0-35.0) 10/15/17 06:15 MCHC 33.0 g/dL (31.0-37.0) 10/15/17 06:15 RDW 19.0 % (11.5-15.5) H 10/15/17 06:15 Plt Count 48 k/uL (150-450) L* 10/15/17 06:15 Neutrophils % Not Reportable 10/10/17 08:33 Neutrophils % (Manual) 64 % 10/15/17 06:15 Band Neutrophils % 2 % 10/15/17 06:15 Lymphocytes % Not Reportable 10/10/17 08:33 Lymphocytes % (Manual) 12 % 10/15/17 06:15 Monocytes % Not Reportable 10/10/17 08:33 Monocytes % (Manual) 19 % 10/15/17 06:15 Eosinophils % Not Reportable 10/10/17 08:33 Basophils % Not Reportable 10/10/17 08:33 Metamyelocytes % 3 % 10/15/17 06:15 Myelocytes % 1 % 10/15/17 06:15 Neutrophils # Not Reportable 10/10/17 08:33 Neutrophils # (Manual) 5.30 k/uL (1.3-7.7) 10/15/17 06:15 Lymphocytes # Not Reportable 10/10/17 08:33 Lymphocytes # (Manual) 0.97 k/uL (1.0-4.8) L 10/15/17 06:15 Monocytes # Not Reportable 10/10/17 08:33 Monocytes # (Manual) 1.54 k/uL (0-1.0) H 10/15/17 06:15 Eosinophils # Not Reportable 10/10/17 08:33 Basophils # Not Reportable 10/10/17 08:33 Metamyelocytes # (Man) 0.24 k/uL (0) H 10/15/17 06:15 Myelocytes # (Manual) 0.08 k/uL (0) H 10/15/17 06:15 Nucleated RBCs 0 /100 WBC (0-0) 10/15/17 06:15 Differential Comment 10/12/17 05:55 Manual Slide Review Performed 10/14/17 08:10 Toxic Granulation Present 10/13/17 06:30 Polychromasia Present 10/15/17 06:15 Hypochromasia Slight 10/15/17 06:15 Hyperchromasia Slight 10/13/17 06:30 Poikilocytosis Moderate 10/15/17 06:15 Poikilocytosis (manual Present 10/14/17 08:10 Anisocytosis Slight 10/15/17 06:15 Spherocytes Present 10/13/17 06:30 PT 11.8 sec (9.0-12.0) 10/09/17 11:58 INR 1.2 (<1.2) H 10/09/17 11:58 APTT 31.2 sec (22.0-30.0) H 10/09/17 11:58 Sodium 137 mmol/L (137-145) 10/15/17 06:15 Potassium 4.3 mmol/L (3.5-5.1) 10/15/17 06:15 Chloride 109 mmol/L (98-107) H 10/15/17 06:15 Carbon Dioxide 24 mmol/L (22-30) 10/15/17 06:15 Anion Gap 4 mmol/L 10/15/17 06:15 BUN 29 mg/dL (7-17) H 10/15/17 06:15 Creatinine 1.04 mg/dL (0.52-1.04) 10/15/17 06:15 Est GFR (MDRD) Af Amer >60 (>60 ml/min/1.73 sqM) 10/15/17 06:15 Est GFR (MDRD) Non-Af 54 (>60 ml/min/1.73 sqM) 10/15/17 06:15 Glucose 96 mg/dL (74-99) 10/15/17 06:15 Calcium 8.1 mg/dL (8.4-10.2) L 10/15/17 06:15 Magnesium 2.3 mg/dL (1.6-2.3) 10/15/17 06:15 Total Bilirubin 0.5 mg/dL (0.2-1.3) 10/14/17 07:10 AST 20 U/L (14-36) 10/14/17 07:10 ALT 30 U/L (9-52) 10/14/17 07:10 Alkaline Phosphatase 128 U/L (38-126) H 10/14/17 07:10 Total Creatine Kinase 24 U/L (30-135) L 10/09/17 11:58 CK-MB (CK-2) <0.2 ng/mL (0.0-2.4) 10/09/17 11:58 CK-MB (CK-2) Rel Index 10/09/17 11:58 Troponin I 0.033 ng/mL (0.000-0.034) 10/09/17 11:58 Total Protein 4.4 g/dL (6.3-8.2) L 10/14/17 07:10 Albumin 2.2 g/dL (3.5-5.0) L 10/14/17 07:10 Urine Color Yellow 10/10/17 03:15 Urine Appearance Cloudy (Clear) H 10/10/17 03:15 Urine pH 6.0 (5.0-8.0) 10/10/17 03:15 Ur Specific [place] 1.012 (1.001-1.035) 10/10/17 03:15 Urine Protein 1+ (Negative) H 10/10/17 03:15 Urine Glucose (UA) Negative (Negative) 10/10/17 03:15 Urine Ketones Negative (Negative) 10/10/17 03:15 Urine Blood Negative (Negative) 10/10/17 03:15 Urine Nitrite Positive (Negative) H 10/10/17 03:15 Urine Bilirubin Negative (Negative) 10/10/17 03:15 Urine Urobilinogen <2.0 mg/dL (<2.0) 10/10/17 03:15 Ur Leukocyte Esterase Large (Negative) H 10/10/17 03:15 Urine RBC 5 /hpf (0-5) 10/10/17 03:15 Urine WBC 171 /hpf (0-5) H 10/10/17 03:15 Urine WBC Clumps Rare /hpf (None) H 10/10/17 03:15 Ur Squamous Epith Cells 2 /hpf (0-4) 10/10/17 03:15 Urine Bacteria Few /hpf (None) H 10/10/17 03:15 Urine Mucus Rare /hpf (None) H 10/10/17 03:15 C. difficile (EIA) Intrp Negative (Negative) 10/12/17 11:40 Influenza Type A RNA Detected (Not Detectd) H 10/12/17 10:55 Influenza Type B (PCR) Not Detected (Not Detectd) 10/12/17 10:55 Blood Type O Positive 10/15/17 09:11 Blood Type Recheck No 10/15/17 09:11 Antibody Screen NEGATIVE 10/15/17 09:11 Crossmatch See Detail 10/15/17 09:11 Transfuse Platelets 10/10/17 10/10/17 08:00 Spec Expiration Date 10/18/2017 - 2311 10/15/17 09:11 Microbiology 10/10/17 07:30 Blood Blood Culture - Preliminary No Growth after 120 hours 10/10/17 10:04 Urine,Voided Urine Culture - Final Assessment and Plan (1) Pancytopenia due to antineoplastic chemotherapy Narrative/Plan: 57-year-old female with a very complex recent past medical history starting first with her breast carcinoma receiving treatment including chemotherapy. Then developed significant pain and was on evidence of the osteosarcoma has been receiving further chemotherapy with cis-hopi and doxorubicin. Now presents feeling ill. Pancytopenia was noted and was begun on antibiotic therapy. Did not have marked improvement and with influenza testing was found to have evidence of influenza a. Tamiflu was started. The appropriate doses now been dealt with with the pharmacy and hopefully will allow rapid resolution of her acute illness. She is receiving respiratory treatments. Antibiotic therapy continues with cefepime because of her neutropenia and illness. Blood cultures are negative at this time. Her port is intact and does not appear to be infected. No need for the addition of vancomycin at this time. Cultures as indicated especially if she has further fever. Growth factors been given and hopefully she'll recover her white count soon which will allow further resolution of her influenza. The dosing of her Tamiflu should complete over the next 3 days. There is no need for further antimicrobial therapy at this time with no other bacterial infections being noticed that she is being discharged to home at this time. She 'll follow-up with her oncologist in the near future. Status: Acute Code(s): D61.810 - ANTINEOPLASTIC CHEMOTHERAPY INDUCED PANCYTOPENIA; T45.1X5A - ADVERSE EFFECT OF ANTINEOPLASTIC AND IMMUNOSUP DRUGS, INIT SNOMED Code(s): 243962771726889 (2) Osteosarcoma Status: Acute Code(s): C41.9 - MALIGNANT NEOPLASM OF BONE AND ARTICULAR CARTILAGE, UNSP SNOMED Code(s): 521284608 (3) Breast cancer Status: Acute Code(s): C50.919 - MALIGNANT NEOPLASM OF UNSP SITE OF UNSPECIFIED FEMALE BREAST SNOMED Code(s): 625370768 (4) Influenza A Status: Acute Code(s): J10.1 - FLU DUE TO OTH IDENT INFLUENZA VIRUS W OTH RESP MANIFEST SNOMED Code(s): 119865882
--- NOTE | 2017-10-16 11:47 | DS ---
DISCHARGE SUMMARY DATE OF SERVICE: 10/16/2017 FINAL DIAGNOSES: 1. Dizziness and weakness with severe electrolyte abnormality. 2. Acute influenza A. 3. Severe hypokalemia. 4. Severe hypomagnesemia, persistent. 5. Severe pancytopenia secondary to chemotherapy. 6. Leukopenia. 7. Neutropenia. 8. Thrombocytopenia. 9. History of recent chemotherapy for breast cancer with metastases. 10.Anemia. 11.Increased AST, ALT, alkaline phosphatase. 12.Chest pain, angina. 13.Chronic obstructive pulmonary disease. DISCHARGE DISPOSITION: The patient will be discharged in stable condition with guarded prognosis. Total time 35 minutes. HISTORY OF PRESENT ILLNESS: This 57-year-old woman with a past medical history of multiple medical problems was admitted with weakness, severe electrolyte abnormalities; also had influenza A. Patient was treated symptomatically. Electrolyte abnormalities were corrected and multiple consultants, including Dr. Pierson and Dr. Fiore, saw the patient. On exam, vital signs are stable. CARDIOVASCULAR SYSTEM: S1, S2 muffled. ABDOMEN: Soft. RESPIRATORY SYSTEM: Scattered rhonchi. DISCHARGE ADVICE AND MEDICATIONS: 1. Diet is cardiac. 2. Activity limited until followup. 3. Follow up with Dr. Ramirez in 2 to 3 days. 4. Follow up with Dr. Fiore as advised. 5. Vitamin D2 50,000 daily. 6. Synthroid 300 mcg p.o. each morning. 7. Magnesium oxide 400 mg p.o. q.i.d. 8. Nifedipine ER 30 mg p.o. daily. 9. Nystatin 1 application daily. 10.Tamiflu 70 mg p.o. b.i.d. for 3 more days. 11.Oxycodone 5 mg q.4 p.r.n. 12.K-Dur 20 mEq p.o. b.i.d. 13.Vitamin B1 100 mg p.o. daily. 14.Spiriva 1 puff daily. 15.Demadex 20 mg p.o. daily. 16.Follow-up labs CBC, BMP, magnesium with Dr. Ramirez as well as the patient's . MMODL / IJN: [id number] / MTDD
--- NOTE | 2017-10-19 09:03 | CDI ---
Last Revision, August 2017 Documentation Clarification Form Date: 10/19/2017 8:32:00 AM From: Calista Corley Phone: If you have a question about this query, please contact Lizeth Matt , Director Volunteer Services, [facility] at [phone] between 8am and 5pm. Admit Date: 10/09/2017 2:44:00 PM Patient Name: Karissa Watkins Visit Number: [id number] Discharge Date: 10/15/17 ATTENTION: The Clinical Documentation Specialists (CDI) and [facility] Coding Staff appreciate your assistance in clarifying documentation. Please respond to the clarification below the line at the bottom and electronically sign. The CDI & [facility] Coding staff will review the response and follow-up if needed. Please note: Queries are made part of the Legal Health Record. If you have any questions, please contact the author of this message via ITS. Dr. Bob Newman Influenza A has been documented in your progress notes and discharge summary. History/Risk Factors: osteosarcoma of right knee undergoing chemotherapy after knee replacement, hx breast ca w mets Clinical Indicators: First influenza A test negative and second test positive Treatment: On adm IV fluids, IV & PO K & Mg, IV Rocephin & IV Cefepime started on 10/10, 10/11 Zarxio started, 10/12 Tamiflu started Definition of Present on Admission (POA): A diagnosis present at the time the order for admission to inpatient status was written. For each diagnosis, documentation must be clear to determine if the condition was present at the time of the patients inpatient admission or developed during the hospital stay. Please clarify in progress notes and discharge summary as to whether Influenza A was: Y = Yes, the condition was present at the time of the order for inpatient admission. N = No, the condition was not present at the time of the order for inpatient admission. W = Clinically undetermined if the condition was present at the time of the order for inpatient admission. Please continue to document in your progress notes and discharge summary in order to capture severity of illness and risk of mortality. Include clinical findings that support your diagnosis. N = No, the condition was not present at the time of the order for inpatient admission. NOLBERTOD
--- NOTE | 2017-10-21 08:44 | CDI ---
Last Revision, August 2017 Documentation Clarification Form Date: 10/19/2017 8:32:00 AM From: Calista Corley Phone: If you have a question about this query, please contact Lizeth Matt, Mechanical Engineering Teacher, [facility] at [phone] between 8am and 5pm. Admit Date: 10/09/2017 2:44:00 PM Patient Name: Karissa Watkins Visit Number: [id number] Discharge Date: 10/15/17 ATTENTION: The Clinical Documentation Specialists (CDI) and [facility] Coding Staff appreciate your assistance in clarifying documentation. Please respond to the clarification below the line at the bottom and electronically sign. The CDI & [facility] Coding staff will review the response and follow-up if needed. Please note: Queries are made part of the Legal Health Record. If you have any questions, please contact the author of this message via ITS. Dr. Jennifer Newman The following has been documented in your progress notes and discharge summary: Influenza A History/Risk Factors: osteosarcoma of right knee undergoing chemotherapy after knee replacement, hx breast ca w mets Clinical Indicators: First influenza A test negative and second test positive Treatment: On adm IV fluids, IV & PO K & Mg, IV Rocephin & IV Cefepime started on 10/10, 10/11 Zarxio started, 10/12 Tamiflu started Definition of Present on Admission (POA): A diagnosis present at the time the order for admission to inpatient status was written. For each diagnosis, documentation must be clear to determine if the condition was present at the time of the patients inpatient admission or developed during the hospital stay. Please clarify in progress notes and discharge summary as to whether Influenza A was: Y = Yes, the condition was present at the time of the order for inpatient admission. N = No, the condition was not present at the time of the order for inpatient admission. W = Clinically undetermined if the condition was present at the time of the order for inpatient admission. Please continue to document in your progress notes and discharge summary in order to capture severity of illness and risk of mortality. Include clinical findings that support your diagnosis. Already clarified. MTDD
== END 2017-10-15 17:19 | disposition home or self-care (01) | DRG 640 ==
LOC: EC 10:01 → 5ONC 14:44 → 6SEL 10-10 08:02 → 5ONC 10-11 20:50 → 5MS5E 10-12 19:23
PROVIDERS: ADMIT Hospitalist; ATTEND Hospitalist
PROC: 30233R1 Transfusion of Nonautologous Platelets into Peripheral Vein, Percutaneous Approach (ICD-10-PCS; principal; 2017-10-10)
PROC: 30233N1 Transfusion of Nonautologous Red Blood Cells into Peripheral Vein, Percutaneous Approach (ICD-10-PCS; 2017-10-10)
DX: E87.6 Hypokalemia (principal); D61.810 Antineoplastic chemotherapy induced pancytopenia; E86.0 Dehydration; C40.21 Malignant neoplasm of long bones of right lower limb; E83.51 Hypocalcemia; N39.0 Urinary tract infection, site not specified; J10.1 Influenza due to other identified influenza virus with other respiratory manifestations; E83.42 Hypomagnesemia; E03.9 Hypothyroidism, unspecified; J44.9 Chronic obstructive pulmonary disease, unspecified; I10 Essential (primary) hypertension; G47.30 Sleep apnea, unspecified; T45.1X5A Adverse effect of antineoplastic and immunosuppressive drugs, initial encounter; Z79.899 Other long term (current) drug therapy; Z85.3 Personal history of malignant neoplasm of breast; Z86.718 Personal history of other venous thrombosis and embolism; Z86.711 Personal history of pulmonary embolism; Z98.84 Bariatric surgery status; Z90.49 Acquired absence of other specified parts of digestive tract; Z90.11 Acquired absence of right breast and nipple; Z90.710 Acquired absence of both cervix and uterus; Z96.651 Presence of right artificial knee joint; Z88.8 Allergy status to other drugs, medicaments and biological substances; Z91.048 Other nonmedicinal substance allergy status
CPT/HCPCS: 36415; 70450; 71045; 71046; 80048; 80051; 80053; 81001; 82550; 82553; 83735; 84132; 84484; 85025; 85027; 85610; 85730; 86850; 86900; 86901; 86920; 87040; 87086; 87324; 87502; 93005; 94640; 96361; 96365; 96375; 99285